=== PATIENT | male | born 1930 | race Caucasian/White ===

== ENCOUNTER 2019-03-14 08:35 | Inpatient (IN) | payer OTHER, MEDICARE ==
[2019-03-14] MEDS ORDERED: ACETAMINOPHEN 325 MG TABLET (FP) PO ONE ×2 (09:27→14:50)
[2019-03-14] MEDS ORDERED: SODIUM CHLORIDE 0.9% 1000 ML INFUS.BAG IV ONE (09:27)
[2019-03-14] MEDS ORDERED: ACETAMINOPHEN 325 MG TABLET (FP) ONE ×2 (09:46→14:54)
--- NOTE | 2019-03-14 09:55 | PDOC ---
History of Present Illness - General Chief Complaint: Urinary Problem Stated Complaint: BLOOD IN URINE/ STOOL History Source: Patient Exam Limitations: Language Barrier - History of Present Illness Initial Comments: 03/14/19 09:51 88-year-old male ho bph htn cad , aaa, hld, here today status post bladder cyst removal done by Dr. Colby on for 03/10 complaining of dysuria. Patient states that he has had hematuria since his surgical procedure. Today started getting severe dysuria. He states he is still able to urinate small amounts at a time but has severe pain when urinating. Denies fevers chills is currently taking antibiotic as prescribed by his urologist. No flank pain no lower abdominal pain not feeling dizzy or lightheaded did not call his urologist today is Friday03/14/19 11:43 Past History - Past Medical History Allergies/Adverse Reactions: Allergies Allergy/AdvReac Type Severity Reaction Status Date / Time No Known Allergies Allergy Unverified 03/14/19 08:43 Home Medications: Ambulatory Orders Cilostazol 100 mg PO BID tablet 08/03/14 Clopidogrel Bisulfate [Clopidogrel] 75 mg PO DAILY #7 tablet 08/03/14 Simvastatin 40 mg PO DAILY tablet 08/03/14 Metoprolol Tartrate 100 mg PO BID 08/01/15 Olmesartan Medoxomil [Benicar (Nf)] 20 mg PO DAILY 03/14/19 Anemia: No Asthma: No Cancer: Yes Cardiac Disorders: Yes ([place]) CVA: No COPD: No CHF: No Dementia: No Diabetes: No GI Disorders: No Disorders: No HTN: Yes Hypercholesterolemia: Yes Liver Disease: No Seizures: No Thyroid Disease: No - Surgical History Abdominal Surgery: No Appendectomy: No Cardiac Surgery: Yes (stents) Cholecystectomy: No Lung Surgery: No Neurologic Surgery: No - Suicide/Smoking/Psychosocial Hx Smoking History: Never smoked Have you smoked in the past 12 months: No If you are a former smoker, when did you quit?: 7 years ago Hx Alcohol Use: No Drug/Substance Use Hx: No Substance Use Type: None Review of Systems - Review of Systems Constitutional: No: Chills, Diaphoresis, Fever HEENTM: No: Eye Pain Respiratory: No: Cough, Orthopnea Cardiac (ROS): No: Chest Pain, Edema : Yes: Burning, Dysuria, Hematuria Musculoskeletal: No: Back Pain Integumentary: No: Bruising, Change in Color All Other Systems: Reviewed and Negative *Physical Exam - Vital Signs Last Vital Signs Temp Pulse Resp BP Pulse Ox 97.5 F L 71 18 146/86 97 03/14/19 08:41 03/14/19 08:41 03/14/19 08:41 03/14/19 08:41 03/14/19 08:41 - Physical Exam Comments: 03/14/19 09:53 Awake alert no acute distress lungs are clear bilaterally heart is regular 20 murmurs rubs or gallops abdomen is soft and nontender examination of the shows penile shaft no lesions no erythema no swelling no discharge there is scant bloody urine in his underwear testicles are nontender no CVA tenderness skin is warm and dry no rash extremities are warm and well-perfused neurologically patient is alert and oriented 3 Procedures - Bedside Ultrasound Other: renal. bladder ED Treatment Course - LABORATORY CBC & Chemistry Diagram: 03/14/19 10:15 03/14/19 10:15 Medical Decision Making - Medical Decision Making 03/14/19 09:54 88-year-old status post urological procedure here complaining of dysuria. Differential includes trauma from the surgery urethritis UTI hypertension we will send basic labs and hydrate the patient we'll send urine to look for infection will discuss with Dr. Colby postvoid ultrasound for bladder volume to rule out retention 03/14/19 13:03 pt labs noted for elevated creatinine. positive uti, insetting of procedure unclear. however pt with severe dysuria. focused ED renal / bladder us performed indication hematuria bladder volume measured to be 370 ml pre void, and 340 mL post void. noted hyperechoic material post bladder, no color flow, likley clot. bilat renal us performed . no hydronephrosis noted. superior pole right kidney with simple cyst measuring 2 x 1.7 cm right renal diameter 10 cm left renal diameter 9.48 cm inferior pole left kidney with simple cyst measuring 1.4 x 1.6 cm limpression: mild bladder retention 340 ml with debris likley clot, bilat renal siimple cyst, no hydroneprhosis. d/w dr colby, will admit pt to medicine. told to avoid kuhn catheterization. will see in hospital. ceftriaxone for uti ordered. 03/14/19 13:18 d/w dr peralta, who will admit for dr. sun. *DC/Admit/Observation/Transfer Diagnosis at time of Disposition: UTI (urinary tract infection), Hematuria - Discharge Dispostion Decision to Admit order: Yes - Referrals Referrals: Stephen Sun MD [Primary Care Provider] - - Patient Instructions - Post Discharge Activity
[2019-03-14 10:22] LABS: BASO % 0.7 % (0-2.0); EOS % 1.6 % (0-4.5); HEMOGLOBIN 11.2 GM/dL (11.7-16.9); LYMPH % 14.8 % (8-40); MCH 30.2 pg (25.7-33.7); MCHC 32.8 g/dl (32.0-35.9); MEAN CELL VOLUME 92.2 fl (80-96); MEAN PLT VOLUME 8.2 fl (7.5-11.1); MONO % 8.4 % (3.8-10.2); NEUT % 74.5 % (42.8-82.8); PLATELET COUNT 137 K/MM3 (134-434); RBC 3.69 M/mm3 (4.00-5.60); RDW 16.8 % (11.9-15.9); WHITE BLOOD COUNT 5.2 K/mm3 (4.0-10.0)
[2019-03-14 10:57] LABS: PH,URINE 8.5 (5.0-8.0); URINE BILIRUBIN 3+ (NEGATIVE); URINE COLOR Red; URINE GLUCOSE (UA) Trace (NEGATIVE); URINE KETONE 2+ (NEGATIVE); URINE LEUK ESTERASE 3+ (NEGATIVE); URINE NITRITE Positive (NEGATIVE); URINE PROTEIN 3+ (NEGATIVE); URINE UROBILINOGEN 4.0 E.U/dl mg/dL (0.2-1.0)
[2019-03-14 10:59] LABS: ALK PHOS 62 U/L (45-117); ANION GAP 6 MMOL/L (8-16); BILIRUBIN,TOTAL 0.6 mg/dL (0.2-1); BLOOD UREA NITROGEN 28 mg/dL (7-18); CHLORIDE 103 mmol/L (98-107); CO2 28 mmol/L (21-32); CREATININE 1.9 mg/dL (0.55-1.3); GLUCOSE,RANDOM 102 mg/dL (74-106); POTASSIUM 4.1 mmol/L (3.5-5.1); SGOT/AST 27 U/L (15-37); SGPT/ALT 11 U/L (13-61); SODIUM 138 mmol/L (136-145); TOT PROT 7.5 g/dl (6.4-8.2)
[2019-03-14 11:17] LABS: URINE APPEARANCE BLOODY
[2019-03-14 11:27] LABS: URINE BACTERIA FEW /hpf (NEGATIVE); URINE RBC >100 /hpf (0-4); URINE WBC 10 /hpf (0-5)
[2019-03-14] MEDS ORDERED: CEFTRIAXONE 1,000 MG in DEXTROSE 5%-WATER - 50 ML IVPB ONE (13:08)
[2019-03-14] MEDS ORDERED: CEFTRIAXONE 1 GM/50 ML BAG ONE ×2 (13:28→13:29)
[2019-03-14] MEDS ORDERED: METOPROLOL TARTRATE 50 MG TABLET (FP) PO ONE (14:51)
[2019-03-14] MEDS ORDERED: LOSARTAN 50MG/HCTZ 12.5MG 1 TAB (FP) PO ONE (14:52)
[2019-03-14] MEDS ORDERED: METOPROLOL TARTRATE 50 MG TABLET (FP) ONE (14:54)
[2019-03-14] MEDS: SODIUM CHLORIDE 0.45% 1,000 ML IV SCH (19:01)
[2019-03-14] MEDS ORDERED: PT OWN MED DRAWER 7, Y5N ONE (21:10)
[2019-03-14] MEDS: METOPROLOL TARTRATE 50 MG TABLET (FP) PO SCH (21:44)
[2019-03-14] MEDS: ATORVASTATIN CA 20 MG TABLET (FP) PO SCH (21:45)
[2019-03-14] MEDS ORDERED: PATIENT'S OWN MEDICATION (NON-FORMULARY) (Metoprolol Tartrate [Metoprolol Tartrate] 100 MG PO SCH (22:00)
[2019-03-14] MEDS: CILOSTAZOL 100 MG TABLET PO SCH (23:25)
[2019-03-15 03:47] VITALS: BMI 24.0
[2019-03-15 08:56] LABS: ANION GAP 9 MMOL/L (8-16); BLOOD UREA NITROGEN 23 mg/dL (7-18); CALCIUM 8.8 mg/dL (8.5-10.1); CHLORIDE 100 mmol/L (98-107); CO2 25 mmol/L (21-32); CREATININE 1.3 mg/dL (0.55-1.3); GLUCOSE,RANDOM 85 mg/dL (74-106); POTASSIUM 3.8 mmol/L (3.5-5.1); SODIUM 133 mmol/L (136-145)
[2019-03-15] MEDS ORDERED: cefTRIAXone SODIUM 1 GM VIAL ONE (09:29)
[2019-03-15] MEDS ORDERED: DEXTROSE 5%-WATER - 50 ML IVPB ONE (09:29)
[2019-03-15] MEDS: LOSARTAN POTASSIUM 50 MG TABLET (FP) PO SCH (09:45)
[2019-03-15] MEDS: METOPROLOL TARTRATE 50 MG TABLET (FP) PO SCH ×2 (09:45→21:41)
[2019-03-15] MEDS: HYDROCHLOROTHIAZIDE 25 MG TABLET (FP) PO SCH (09:46)
[2019-03-15] MEDS: CEFTRIAXONE 1 GM in DEXTROSE 5%-WATER - 50 ML IVPB SCH (09:46)
[2019-03-15] MEDS: CILOSTAZOL 100 MG TABLET PO SCH ×2 (09:47→21:42)
[2019-03-15] MEDS ORDERED: PATIENT'S OWN MEDICATION (NON-FORMULARY) (Simvastatin [Simvastatin] 40 MG) PO SCH (10:00)
[2019-03-15] MEDS ORDERED: PATIENT'S OWN MEDICATION (NON-FORMULARY) (Losartan/Hydrochlorothiazide [Losartan-Hctz 100- PO SCH (10:00)
[2019-03-15] MEDS: SODIUM CHLORIDE 0.45% 1,000 ML IV SCH (10:20)
--- NOTE | 2019-03-15 10:43 | HP ---
Admitting History and Physical - Primary Care Physician PCP: Stephen Willis - Admission History of Present Illness: Pt seen/ examined chart reviewed In summary 88-year-old male with pmhx-- bph htn cad , aaa, hld, status post bladder cyst removal done by Dr. Medina on for 03/10 complaining of dysuria. Patient states that he has had hematuria since his surgical procedure. Pt given abx started on fluids admitted to floor u/s done in er -- Findings noted focused ED renal / bladder us performed indication hematuria bladder volume measured to be 370 ml pre void, and 340 mL post void. noted hyperechoic material post bladder, no color flow, likley clot. bilat renal us performed . no hydronephrosis noted. superior pole right kidney with simple cyst measuring 2 x 1.7 cm right renal diameter 10 cm left renal diameter 9.48 cm inferior pole left kidney with simple cyst measuring 1.4 x 1.6 cm lmpression: mild bladder retention 340 ml with debris likley clot, bilat renal siimple cyst, no hydroneprhosis. Pt seen/ examined feels better today History Source: Patient Limitations to Obtaining History: No Limitations - Past Medical History Cardiovascular: Yes: CAD (s/p stents x2 - 7 years ago), HTN, Hyperlipdemia, [place], Other (LV dysfunction, carotid stenosis) Renal/: Yes: Renal Inusuff Musculoskeletal: Yes: Other (Lumbosacral disc disease) - Past Surgical History Past Surgical History: Yes: Stent - Smoking History Smoking history: Never smoked Have you smoked in the past 12 months: No If you are a former smoker, when did you quit?: 7 years ago - Alcohol/Substance Use Hx Alcohol Use: No - Social History ADL: Independent History of Recent Travel: No Home Medications - Allergies Allergies/Adverse Reactions: Allergies Allergy/AdvReac Type Severity Reaction Status Date / Time No Known Allergies Allergy Unverified 03/14/19 08:43 - Home Medications Home Medications: Ambulatory Orders Cilostazol 100 mg PO BID tablet 08/03/14 Clopidogrel Bisulfate [Clopidogrel] 75 mg PO DAILY #7 tablet 08/03/14 Simvastatin 40 mg PO DAILY tablet 08/03/14 Metoprolol Tartrate 100 mg PO BID 08/01/15 Losartan/Hydrochlorothiazide [Losartan-Hctz 100-25 mg Tab] 1 each PO DAILY 03/14 Review of Systems - Review of Systems Constitutional: reports: Weakness Eyes: reports: No Symptoms HENT: reports: No Symptoms Neck: reports: No Symptoms Cardiovascular: reports: No Symptoms Respiratory: reports: No Symptoms Gastrointestinal: reports: No Symptoms Genitourinary: reports: Dysuria Neurological: reports: No Symptoms Psychiatric: reports: No Symptoms Physical Examination Vital Signs: Vital Signs Temperature 98.1 F 03/15/19 06:00 Pulse Rate 74 03/15/19 06:00 Respiratory Rate 18 03/14/19 22:00 Blood Pressure 158/89 03/15/19 06:00 O2 Sat by Pulse Oximetry (%) 98 03/14/19 22:00 Constitutional: Yes: No Distress, Calm Eyes: Yes: Conjunctiva Clear HENT: Yes: WNL Neck: Yes: Supple Cardiovascular: Yes: Regular Rate and Rhythm Respiratory: Yes: CTA Bilaterally Gastrointestinal: Yes: Soft Edema: No Neurological: Yes: Alert Psychiatric: Yes: Alert Labs: CBC, BMP 03/14/19 10:15 03/15/19 07:38 Problem List - Problems (1) Hematuria Code(s): R31.9 - HEMATURIA, UNSPECIFIED (2) CAD (coronary artery disease) Code(s): I25.10 - ATHSCL HEART DISEASE OF [place] CORONARY ARTERY W/O ANG PCTRS Assessment/Plan Clinically better Continue present care abx fluids meds reviewed f/u lytes urology to follow will follow Ambulate avoid Catherization
--- NOTE | 2019-03-15 11:00 | EKG ---
Test Reason : Blood Pressure : / mmHG Vent. Rate : 058 BPM Atrial Rate : 058 BPM P-R Int : 166 ms QRS Dur : 106 ms QT Int : 454 ms P-R-T Axes : -02 -33 068 degrees QTc Int : 445 ms SINUS BRADYCARDIA LEFT AXIS DEVIATION INFERIOR INFARCT (CITED ON OR BEFORE 01-AUG-2015) ABNORMAL ECG WHEN COMPARED WITH ECG OF 01-AUG-2015 13:34, T WAVE VARIATION Confirmed by DONALD MAS, HERB ([id number]) on 03/15/2019 10:59:46 AM Referred By: Confirmed By:HERB BENNETT MD
[2019-03-15] MEDS ORDERED: PT OWN MED DRAWER 7, Y5N ONE (21:18)
[2019-03-15] MEDS: ATORVASTATIN CA 20 MG TABLET (FP) PO SCH (21:41)
[2019-03-16 07:29] LABS: BASO % 0.4 % (0-2.0); EOS % 1.3 % (0-4.5); HEMATOCRIT 32.4 % (35.4-49); LYMPH % 16.6 % (8-40); MCH 30.3 pg (25.7-33.7); MCHC 34.1 g/dl (32.0-35.9); MEAN CELL VOLUME 88.9 fl (80-96); MEAN PLT VOLUME 8.5 fl (7.5-11.1); MONO % 6.6 % (3.8-10.2); NEUT % 75.1 % (42.8-82.8); PLATELET COUNT 147 K/MM3 (134-434); RBC 3.64 M/mm3 (4.00-5.60); RDW 16.6 % (11.9-15.9); WHITE BLOOD COUNT 6.9 K/mm3 (4.0-10.0)
[2019-03-16 07:34] LABS: ALBUMIN 2.6 g/dl (3.4-5.0); ALK PHOS 62 U/L (45-117); ANION GAP 7 MMOL/L (8-16); BILIRUBIN,TOTAL 0.7 mg/dL (0.2-1); BLOOD UREA NITROGEN 25 mg/dL (7-18); CHLORIDE 97 mmol/L (98-107); CO2 27 mmol/L (21-32); CREATININE 1.4 mg/dL (0.55-1.3); GLUCOSE,RANDOM 111 mg/dL (74-106); POTASSIUM 3.6 mmol/L (3.5-5.1); SGOT/AST 37 U/L (15-37); SGPT/ALT 12 U/L (13-61); SODIUM 131 mmol/L (136-145); TOT PROT 6.8 g/dl (6.4-8.2)
[2019-03-16] MEDS ORDERED: DEXTROSE 5%-WATER - 50 ML IVPB ONE (10:28)
[2019-03-16] MEDS ORDERED: PT OWN MED DRAWER 7, Y5N ONE ×2 (10:28→21:10)
[2019-03-16] MEDS ORDERED: cefTRIAXone SODIUM 1 GM VIAL ONE (10:28)
[2019-03-16] MEDS: LOSARTAN POTASSIUM 50 MG TABLET (FP) PO SCH (10:43)
[2019-03-16] MEDS: HYDROCHLOROTHIAZIDE 25 MG TABLET (FP) PO SCH (10:43)
[2019-03-16] MEDS: METOPROLOL TARTRATE 50 MG TABLET (FP) PO SCH ×2 (10:43→21:41)
[2019-03-16] MEDS: CILOSTAZOL 100 MG TABLET PO SCH ×2 (10:44→21:41)
[2019-03-16] MEDS: CEFTRIAXONE 1 GM in DEXTROSE 5%-WATER - 50 ML IVPB SCH (10:44)
[2019-03-16] MEDS: SODIUM CHLORIDE 0.45% 1,000 ML IV SCH ×2 (13:03→21:46)
--- NOTE | 2019-03-16 13:56 | PN ---
Progress Note (short form) - Note Progress Note: he is urinating about 100cc each time-- hematuria has pain on urination friend at bedside Vital Signs - 24 hr 03/15/19 03/15/19 03/15/19 20:12 21:00 22:00 Temperature 98.1 F 98.4 F Pulse Rate 69 68 Respiratory 19 20 18 Rate Blood Pressure 164/77 162/76 O2 Sat by Pulse 98 Oximetry (%) 03/16/19 03/16/19 06:33 10:40 Temperature 98.5 F 98.4 F Pulse Rate 53 L 74 Respiratory 20 20 Rate Blood Pressure 153/77 144/92 O2 Sat by Pulse Oximetry (%) Current Medications Generic Name Dose Route Start Last Admin Trade Name Freq PRN Reason Stop Dose Admin Atorvastatin Calcium 20 mg 03/14/19 22:00 03/15/19 21:41 Lipitor - PO 20 mg HS RENARD Administration Cilostazol 100 mg 03/14/19 22:00 03/16/19 10:44 Pletal - PO 100 mg BID RENARD Administration Hydrochlorothiazide 25 mg 03/15/19 10:00 03/16/19 10:43 Hctz - PO 25 mg DAILY RENARD Administration Ceftriaxone Sodium 1 gm/ 50 mls @ 100 mls/hr 03/15/19 10:00 03/16/19 10:44 Dextrose IVPB 100 mls/hr DAILY RENARD Administration Sodium Chloride 1,000 mls @ 100 mls/hr 03/14/19 18:00 03/16/19 13:03 1/2 Normal Saline IV 100 mls/hr ASDIR RENARD Administration Losartan Potassium 100 mg 03/15/19 10:00 03/16/19 10:43 Cozaar - PO 100 mg DAILY RENARD Administration Metoprolol Tartrate 100 mg 03/14/19 22:00 03/16/19 10:43 Lopressor - PO 100 mg BID RENARD Administration Laboratory Results - last 24 hr 03/16/19 03/16/19 06:00 06:00 WBC 6.9 RBC 3.64 L Hgb 11.0 L Hct 32.4 L MCV 88.9 MCH 30.3 MCHC 34.1 RDW 16.6 H Plt Count 147 MPV 8.5 Absolute Neuts (auto) 5.2 Neutrophils % 75.1 Lymphocytes % 16.6 Monocytes % 6.6 Eosinophils % 1.3 Basophils % 0.4 Nucleated RBC % 0 Sodium 131 L Potassium 3.6 Chloride 97 L Carbon Dioxide 27 Anion Gap 7 L BUN 25 H Creatinine 1.4 H Creat Clearance w eGFR 47.83 Random Glucose 111 H Calcium 8.0 L Total Bilirubin 0.7 AST 37 ALT 12 L Alkaline Phosphatase 62 Total Protein 6.8 Albumin 2.6 L Constitutional: Yes: No Distress, Calm Eyes: Yes: Conjunctiva Clear HENT: Yes: WNL Neck: Yes: Supple Cardiovascular: Yes: Regular Rate and Rhythm Respiratory: Yes: CTA Bilaterally Gastrointestinal: Yes: Soft Edema: No Neurological: Yes: Alert Psychiatric: Yes: Alert Problem List - Problems (1) Hematuria Code(s): R31.9 - HEMATURIA, UNSPECIFIED (2) CAD (coronary artery disease) Code(s): I25.10 - ATHSCL HEART DISEASE OF [place] CORONARY ARTERY W/O ANG PCTRS Assessment/Plan Continue present care abx fluids meds reviewed urology to follow will follow Ambulate avoid Catherization Problem List - Problems (1) Hematuria Code(s): R31.9 - HEMATURIA, UNSPECIFIED (2) UTI (urinary tract infection) Code(s): N39.0 - URINARY TRACT INFECTION, SITE NOT SPECIFIED (3) CAD (coronary artery disease) Code(s): I25.10 - ATHSCL HEART DISEASE OF [place] CORONARY ARTERY W/O ANG PCTRS
[2019-03-16] MEDS: ATORVASTATIN CA 20 MG TABLET (FP) PO SCH (21:41)
[2019-03-17 07:15] LABS: HEMATOCRIT 31.9 % (35.4-49); HEMOGLOBIN 10.5 GM/dL (11.7-16.9); MCH 29.5 pg (25.7-33.7); MEAN CELL VOLUME 89.1 fl (80-96); MEAN PLT VOLUME 8.3 fl (7.5-11.1); PLATELET COUNT 137 K/MM3 (134-434); RBC 3.58 M/mm3 (4.00-5.60); RDW 16.3 % (11.9-15.9); WHITE BLOOD COUNT 5.9 K/mm3 (4.0-10.0)
[2019-03-17] MEDS ORDERED: cefTRIAXone SODIUM 1 GM VIAL ONE (09:09)
[2019-03-17] MEDS ORDERED: DEXTROSE 5%-WATER - 50 ML IVPB ONE (09:09)
[2019-03-17] MEDS: CEFTRIAXONE 1 GM in DEXTROSE 5%-WATER - 50 ML IVPB SCH (09:29)
[2019-03-17] MEDS: LOSARTAN POTASSIUM 50 MG TABLET (FP) PO SCH (09:30)
[2019-03-17] MEDS: SODIUM CHLORIDE 0.45% 1,000 ML IV SCH (09:31)
[2019-03-17] MEDS: CILOSTAZOL 100 MG TABLET PO SCH ×2 (09:32→22:10)
[2019-03-17] MEDS: METOPROLOL TARTRATE 50 MG TABLET (FP) PO SCH ×2 (09:33→22:07)
[2019-03-17] MEDS: HYDROCHLOROTHIAZIDE 25 MG TABLET (FP) PO SCH (09:34)
[2019-03-17] MEDS ORDERED: SODIUM CHLORIDE 0.45% 1,000 ML IV SCH (12:43)
--- NOTE | 2019-03-17 12:43 | PN ---
Progress Note (short form) - Note Progress Note: he is urinating about 100cc each time-- hematuria-- frequent urination no further pain on urination no abd pain Vital Signs - 24 hr 03/16/19 03/16/19 03/17/19 18:00 22:00 06:40 Temperature 98.7 F 97.5 F L Pulse Rate 70 60 Respiratory 20 18 Rate Blood Pressure 166/76 150/76 O2 Sat by Pulse 98 Oximetry (%) Current Medications Generic Name Dose Route Start Last Admin Trade Name Nitza PRN Reason Stop Dose Admin Atorvastatin Calcium 20 mg 03/14/19 22:00 03/16/19 21:41 Lipitor - PO 20 mg HS RENARD Administration Cilostazol 100 mg 03/14/19 22:00 03/17/19 09:32 Pletal - PO 100 mg BID RENARD Administration Hydrochlorothiazide 25 mg 03/15/19 10:00 03/17/19 09:34 Hctz - PO 25 mg DAILY RENARD Administration Ceftriaxone Sodium 1 gm/ 50 mls @ 100 mls/hr 03/15/19 10:00 03/17/19 09:29 Dextrose IVPB 100 mls/hr DAILY RENARD Administration Sodium Chloride 1,000 mls @ 100 mls/hr 03/14/19 18:00 03/17/19 09:31 1/2 Normal Saline IV 100 mls/hr ASDIR RENARD Administration Losartan Potassium 100 mg 03/15/19 10:00 03/17/19 09:30 Cozaar - PO 100 mg DAILY RENARD Administration Metoprolol Tartrate 100 mg 03/14/19 22:00 03/17/19 09:33 Lopressor - PO 100 mg BID RENARD Administration Laboratory Results - last 24 hr 03/17/19 06:20 WBC 5.9 RBC 3.58 L Hgb 10.5 L Hct 31.9 L MCV 89.1 MCH 29.5 MCHC 33.0 RDW 16.3 H Plt Count 137 MPV 8.3 Constitutional: Yes: No Distress, Calm Eyes: Yes: Conjunctiva Clear HENT: Yes: WNL Neck: Yes: Supple Cardiovascular: Yes: Regular Rate and Rhythm Respiratory: Yes: CTA Bilaterally Gastrointestinal: Yes: Soft Edema: No Neurological: Yes: Alert Psychiatric: Yes: Alert Problem List - Problems (1) Hematuria Code(s): R31.9 - HEMATURIA, UNSPECIFIED (2) CAD (coronary artery disease) Code(s): I25.10 - ATHSCL HEART DISEASE OF [place] CORONARY ARTERY W/O ANG PCTRS Assessment/Plan Continue present care abx iv fluids meds reviewed urology follow up will follow Ambulate avoid Catherization' Hb stable Problem List - Problems (1) Hematuria Code(s): R31.9 - HEMATURIA, UNSPECIFIED (2) UTI (urinary tract infection) Code(s): N39.0 - URINARY TRACT INFECTION, SITE NOT SPECIFIED (3) CAD (coronary artery disease) Code(s): I25.10 - ATHSCL HEART DISEASE OF [place] CORONARY ARTERY W/O ANG PCTRS
--- NOTE | 2019-03-17 14:43 | CON.GU ---
Consult Consult Specialty:: Urology Reason for Consultation:: Hematuria - History of Present Illness Chief Complaint: Hematuria History of Present Illness: 88 yo male s/p prior TURBT and re resection now w gross hematuria pt found to have UTI - History Source History Provided By: Patient, Medical Record - Past Medical History Cardio/Vascular: Yes: CAD (s/p stents x2 - 7 years ago), HTN, Hyperlipdemia, [place] , Other (LV dysfunction, carotid stenosis) Renal/: Yes: Renal Inusuff Musculoskeletal: Yes: Other (Lumbosacral disc disease) Additional Medical History: PAD, carotid stenosis - Past Surgical History Past Surgical History: Yes: Stent - Alcohol/Substance Use Hx Alcohol Use: No - Smoking History Smoking history: Never smoked Have you smoked in the past 12 months: No If you are a former smoker, when did you quit?: 7 years ago - Social History ADL: Independent History of Recent Travel: No Home Medications - Allergies Allergies/Adverse Reactions: Allergies Allergy/AdvReac Type Severity Reaction Status Date / Time No Known Allergies Allergy Unverified 03/14/19 08:43 - Home Medications Home Medications: Ambulatory Orders Cilostazol 100 mg PO BID tablet 08/03/14 Clopidogrel Bisulfate [Clopidogrel] 75 mg PO DAILY #7 tablet 08/03/14 Simvastatin 40 mg PO DAILY tablet 08/03/14 Metoprolol Tartrate 100 mg PO BID 08/01/15 Losartan/Hydrochlorothiazide [Losartan-Hctz 100-25 mg Tab] 1 each PO DAILY 03/14 Physical Exam- Vital Signs: Vital Signs Temperature 97.5 F L 03/17/19 06:40 Pulse Rate 60 03/17/19 06:40 Respiratory Rate 18 03/17/19 06:40 Blood Pressure 150/76 03/17/19 06:40 O2 Sat by Pulse Oximetry (%) 98 03/16/19 22:00 Labs: CBC, BMP 03/17/19 06:20 03/16/19 06:00 Problem List - Problems (1) Hematuria Assessment/Plan: 88 yo male w prior TURBT w improving hematuria now voiding spontaneously cont IV abx Follow voiding trial path neg for cancer on reresection Code(s): R31.9 - HEMATURIA, UNSPECIFIED
[2019-03-17] MEDS: ATORVASTATIN CA 20 MG TABLET (FP) PO SCH (22:07)
[2019-03-18 05:31] VITALS: BP 158/69; PULSE 61; TEMP 98.5
[2019-03-18 07:51] LABS: HEMATOCRIT 30.6 % (35.4-49); HEMOGLOBIN 10.2 GM/dL (11.7-16.9); MCH 29.5 pg (25.7-33.7); MCHC 33.5 g/dl (32.0-35.9); MEAN CELL VOLUME 88.2 fl (80-96); MEAN PLT VOLUME 8.8 fl (7.5-11.1); PLATELET COUNT 130 K/MM3 (134-434); RBC 3.47 M/mm3 (4.00-5.60); RDW 16.2 % (11.9-15.9); WHITE BLOOD COUNT 6.7 K/mm3 (4.0-10.0)
[2019-03-18] MEDS ORDERED: PT OWN MED DRAWER 7, Y5N ONE (09:08)
[2019-03-18] MEDS ORDERED: DEXTROSE 5%-WATER - 50 ML IVPB ONE (09:08)
[2019-03-18] MEDS ORDERED: cefTRIAXone SODIUM 1 GM VIAL ONE (09:08)
[2019-03-18] MEDS: METOPROLOL TARTRATE 50 MG TABLET (FP) PO SCH (10:33)
[2019-03-18] MEDS: CILOSTAZOL 100 MG TABLET PO SCH (10:33)
[2019-03-18] MEDS: CEFTRIAXONE 1 GM in DEXTROSE 5%-WATER - 50 ML IVPB SCH (10:33)
[2019-03-18] MEDS: LOSARTAN POTASSIUM 50 MG TABLET (FP) PO SCH (10:33)
[2019-03-18] MEDS: HYDROCHLOROTHIAZIDE 25 MG TABLET (FP) PO SCH (10:33)
--- NOTE | 2019-03-18 12:29 | DS ---
Physical Examination Vital Signs: Vital Signs Temperature 98.5 F 03/18/19 05:30 Pulse Rate 61 03/18/19 05:30 Respiratory Rate 20 03/18/19 05:30 Blood Pressure 158/69 03/18/19 05:30 O2 Sat by Pulse Oximetry (%) 95 03/17/19 21:00 Constitutional: Yes: No Distress, Calm Cardiovascular: Yes: Regular Rate and Rhythm Respiratory: Yes: CTA Bilaterally Gastrointestinal: Yes: Normal Bowel Sounds, Soft. No: Tenderness Edema: No Labs: CBC, BMP 03/18/19 05:15 03/16/19 06:00 Discharge Summary Reason For Visit: URINARY TRACT INFECTION Current Active Problems Hematuria (Acute) UTI (urinary tract infection) (Acute) Hospital Course: HISTORY - Admission History of Present Illness: Pt seen/ examined chart reviewed In summary 88-year-old male with pmhx-- bph htn cad , aaa, hld, status post bladder cyst removal done by Dr. Medina on for 03/10 complaining of dysuria. Patient states that he has had hematuria since his surgical procedure. Pt given abx started on fluids admitted to floor u/s done in er -- Findings noted focused ED renal / bladder us performed indication hematuria bladder volume measured to be 370 ml pre void, and 340 mL post void. noted hyperechoic material post bladder, no color flow, likley clot. bilat renal us performed . no hydronephrosis noted. superior pole right kidney with simple cyst measuring 2 x 1.7 cm right renal diameter 10 cm left renal diameter 9.48 cm inferior pole left kidney with simple cyst measuring 1.4 x 1.6 cm lmpression: mild bladder retention 340 ml with debris likley clot, bilat renal siimple cyst, no hydroneprhosis. Pt seen/ examined feels better today Has been voiding frequently, hematuria is clearing up No abd pain no fever urine culture is negative but will treat empirically as he had underwent procedure Urology eval done yesterday stable for dc to home Condition: Improved - Instructions Referrals: Christofer Medina MD., MD [Staff Physician] - Disposition: HOME - Home Medications Comprehensive Discharge Medication List: Ambulatory Orders Cilostazol 100 mg PO BID tablet 08/03/14 Clopidogrel Bisulfate [Clopidogrel] 75 mg PO DAILY #7 tablet 08/03/14 Simvastatin 40 mg PO DAILY tablet 08/03/14 Metoprolol Tartrate 100 mg PO BID 08/01/15 Losartan/Hydrochlorothiazide [Losartan-Hctz 100-25 mg Tab] 1 each PO DAILY 03/14
== END 2019-03-18 14:55 | disposition home or self-care (01) | DRG 920 ==
LOC: JER 08:35 → JERBED 13:08 → J6S 18:53
PROVIDERS: ADMIT Internal Medicine; ATTEND Internal Medicine
DX: N99.820 Postprocedural hemorrhage of a genitourinary system organ or structure following a genitourinary system procedure (principal); N39.0 Urinary tract infection, site not specified; Y83.8 Other surgical procedures as the cause of abnormal reaction of the patient, or of later complication, without mention of misadventure at the time of the procedure; I10 Essential (primary) hypertension; N28.1 Cyst of kidney, acquired; E78.5 Hyperlipidemia, unspecified; I25.10 Atherosclerotic heart disease of native coronary artery without angina pectoris; I25.2 Old myocardial infarction; Z95.5 Presence of coronary angioplasty implant and graft; Z87.891 Personal history of nicotine dependence
CPT/HCPCS: 36415; 80048; 80053; 81003; 85025; 85027; 87086; 93005; 93010; 99283-25; J7030

== ENCOUNTER 2019-05-24 13:59 | Inpatient (IN) | payer OTHER, MEDICARE ==
[2019-05-24] MEDS ORDERED: BACITRACIN 15 GM TUBE TOPICAL OINTMENT TP ONE (15:19)
[2019-05-24 15:23] LABS: BASO % 0.7 % (0-2.0); HEMATOCRIT 29.5 % (35.4-49); HEMOGLOBIN 9.4 GM/dL (11.7-16.9); LYMPH % 7.8 % (8-40); MCH 27.8 pg (25.7-33.7); MCHC 31.8 g/dl (32.0-35.9); MEAN CELL VOLUME 87.4 fl (80-96); MEAN PLT VOLUME 8.7 fl (7.5-11.1); MONO % 6.4 % (3.8-10.2); NEUT % 85.1 % (42.8-82.8); PLATELET COUNT 191 K/MM3 (134-434); RBC 3.38 M/mm3 (4.00-5.60); RDW 17.3 % (11.9-15.9); WHITE BLOOD COUNT 11.5 K/mm3 (4.0-10.0)
--- NOTE | 2019-05-24 15:27 | PDOC ---
History of Present Illness - General Chief Complaint: Injury Stated Complaint: Injury Time Seen by Provider: 05/24/19 14:53 History Source: Patient Exam Limitations: No Limitations - History of Present Illness Initial Comments: 05/24/19 15:26 88yo M with PMH of CAD, AAA, BPH, Bladder Cysts BIBA s/p syncopal episode. Past History - Past Medical History Allergies/Adverse Reactions: Allergies Allergy/AdvReac Type Severity Reaction Status Date / Time No Known Allergies Allergy Verified 05/24/19 14:18 Home Medications: Ambulatory Orders Cilostazol 100 mg PO BID tablet 08/03/14 Simvastatin 40 mg PO DAILY tablet 08/03/14 Metoprolol Tartrate 100 mg PO BID 08/01/15 Losartan/Hydrochlorothiazide [Losartan-Hctz 100-25 mg Tab] 1 each PO DAILY 03/14 Aspirin [ASA -] 81 mg PO DAILY 05/24/19 Anemia: No Asthma: No Cancer: Yes Cardiac Disorders: Yes ([place]) CVA: No COPD: No CHF: No Dementia: No Diabetes: No GI Disorders: No Disorders: No HTN: Yes Hypercholesterolemia: Yes Liver Disease: No Seizures: No Thyroid Disease: No - Surgical History Abdominal Surgery: No Appendectomy: No Cardiac Surgery: Yes (stents) Cholecystectomy: No Lung Surgery: No Neurologic Surgery: No - Suicide/Smoking/Psychosocial Hx Smoking History: Former smoker Have you smoked in the past 12 months: No If you are a former smoker, when did you quit?: 2000 Information on smoking cessation initiated: No Hx Alcohol Use: No Drug/Substance Use Hx: No Substance Use Type: None *Physical Exam - Vital Signs Last Vital Signs Temp Pulse Resp BP Pulse Ox 97.6 F 60 16 118/60 99 05/24/19 14:05 05/24/19 14:05 05/24/19 14:05 05/24/19 14:05 05/24/19 14:05 ED Treatment Course - LABORATORY CBC & Chemistry Diagram: 05/24/19 15:09 05/24/19 15:09 - RADIOLOGY Radiology Studies Ordered: Category Date Time Status HEAD CT WITHOUT CONTRAST [CT] Stat CT Scan 05/24/19 15:06 Ordered CHEST X-RAY PORTABLE* [RAD] Stat Radiology 05/24/19 15:07 Taken *DC/Admit/Observation/Transfer - Referrals Referrals: Stephen Willis MD [Primary Care Provider] - - Patient Instructions - Post Discharge Activity
[2019-05-24 15:29] LABS: INR 1.04 (0.83-1.09); PROTHROMBIN TIME (PATIENT) 12.3 SEC (9.7-13.0)
[2019-05-24] MEDS ORDERED: BACITRACIN 0.9 GM PACKET ONE (15:49)
[2019-05-24 15:52] LABS: BILIRUBIN,TOTAL 0.6 mg/dL (0.2-1); BLOOD UREA NITROGEN 35.6 mg/dL (7-18); CALCIUM 8.7 mg/dL (8.5-10.1); CREATININE 2.4 mg/dL (0.55-1.3); MAGNESIUM 2.6 mg/dL (1.8-2.4); POTASSIUM 4.4 mmol/L (3.5-5.1); TOT PROT 7.4 g/dl (6.4-8.2)
[2019-05-24 16:58] LABS: EPI CELLS 5.3 /HPF (0-5/HPF); HYALINE CASTS 14 /lpf (0-8); URINE APPEARANCE CLEAR; URINE BACTERIA 2.4 /hpf (NEGATIVE); URINE BILIRUBIN NEGATIVE (NEGATIVE); URINE COLOR YELLOW; URINE GLUCOSE (UA) NEGATIVE (NEGATIVE); URINE KETONE NEGATIVE (NEGATIVE); URINE LEUK ESTERASE TRACE (NEGATIVE); URINE NITRITE NEGATIVE (NEGATIVE); URINE PROTEIN 2+ (NEGATIVE); URINE RBC 39 /hpf (0-4); URINE UROBILINOGEN 0.2 mg/dL (0.2-1.0); URINE WBC 18 /hpf (0-5)
[2019-05-24] MEDS ORDERED: SODIUM CHLORIDE 1,000 ML IV STA (17:43)
--- NOTE | 2019-05-24 18:31 | PDOC ---
Documentation entered by Serena Garcia SCRIBE, acting as scribe for Cira Scherer MD. Cira Scherer MD: This documentation has been prepared by the Jose antunez Brenda, SCRIBE, under my direction and personally reviewed by me in its entirety. I confirm that the documentation accurately reflects all work, treatment, procedures, and medical decision making performed by me. Attending Attestation - Resident Resident Name: NeemaLisa - ED Attending Attestation I have performed the following: I have examined & evaluated the patient, The case was reviewed & discussed with the resident, I agree w/resident's findings & plan, Exceptions are as noted - HPI HPI: 05/24/19 18:48 The patient is an 88 year old male, with a significant PMH of CAD, AAA, BPH and Bladder Cysts who presents to the emergency department BIBA with s/p a syncopal episode. The patient reports feeling a sharp pain on left side, at which time he experienced syncope for approximately 1 minute. The patient also notes abrasions on arms and continuous pain on left side. The patient denies chest pain, shortness of breath and headache. Denies fever, chills, nausea, vomiting, diarrhea and constipation. Denies any recent travel. Denies any neurological symptoms. Allergies: NKA Past surgical history: Cardiac surgery: Stents Social history: Past tobacco use, quit 7 years ago. PCP: Dr. Myrtle Willis - Physicial Exam PE: 05/24/19 18:48 GENERAL/CONSTITUTIONAL: No fever or chills. No weakness. HEAD, EYES, EARS, NOSE AND THROAT: No change in vision. No ear pain or discharge. No sore throat. CARDIOVASCULAR: No chest pain or shortness of breath. RESPIRATORY: No cough, wheezing, or hemoptysis. GASTROINTESTINAL: No nausea, vomiting, diarrhea or constipation. GENITOURINARY: No dysuria, frequency, or change in urination. MUSCULOSKELETAL: No joint or muscle swelling or pain. No neck or back pain. SKIN: No rash NEUROLOGIC: No headache, vertigo, loss of consciousness, or change in strength/ sensation. ENDOCRINE: No increased thirst. No abnormal weight change. HEMATOLOGIC/LYMPHATIC: No anemia, easy bleeding, or history of blood clots. ALLERGIC/IMMUNOLOGIC: No hives or skin allergy. - Medical Decision Making 05/24/19 18:25 Pt presents to the ED complaining of syncope and L sided flank pain that has now resolved. Labs show acute renal failure. Will check renal scan to rule out obstruction and admit to medicine for acute renal failure and syncope.
[2019-05-24] MEDS ORDERED: SODIUM CHLORIDE 1,000 ML IV SCH (19:45)
--- NOTE | 2019-05-24 21:09 | HP ---
CHIEF COMPLAINT: passed out and reported had right sided lower abdominal pain PCP:Dr. Willis Cytogenetic Technician: Dr. Kimble HISTORY OF PRESENT ILLNESS: This is an 88 year old male with history of [place], coronary artery disease with 2 stents placed 11 years ago, abdominal aortic aneurym repaired 3 years ago and BPH who presents with a syncopal episode . He reports he was at home,shaved and was walking around in his home and started to feel right sided lower abdominal pain prior to this event and then was found passed out on the floor by his . He denied chest pain, shortness of breath, dizziness or palpitations. He reports not drinking an adequate amount of water. He denied fever, chills, nausea, vomitting or diarrhea. Upon evaluation in the ER he was found to have a creatinine of 2.4(baseline 1.1- 1.9),WBC 11.5, magnesium 2.6, hgb 9.[address] scan of head showed no acute intracranial findings. CT scan of abdomen and pelvis demonstrated a large pernephritic hematoma. Renal US showed no evidence of hydronephrosis and bilateral renal cysts. He is being admitted for further cardiac, neurological and renal workup. Recent Travel:denies PAST MEDICAL HISTORY: coronary artery disease with stents BPH PAST SURGICAL HISTORY: abdominal aortic aneurysm repair Social History: Smoking:denies Alcohol:denies Drugs: denies Family History: noncontributory Allergies No Known Allergies Allergy (Verified 05/24/19 14:18) HOME MEDICATIONS: Home Medications Medication Instructions Recorded Cilostazol 100 mg PO BID tablet 08/03/14 Simvastatin 40 mg PO DAILY tablet 08/03/14 Metoprolol Tartrate 100 mg PO BID 08/01/15 Losartan/Hydrochlorothiazide 1 each PO DAILY 03/14/19 [Losartan-Hctz 100-25 mg Tab] Aspirin [ASA -] 81 mg PO DAILY 05/24/19 REVIEW OF SYSTEMS CONSTITUTIONAL: Absent: fever, chills, diaphoresis, generalized weakness, malaise, loss of appetite, weight change HEENT: Absent: rhinorrhea, nasal congestion, throat pain, throat swelling, difficulty swallowing, mouth swelling, ear pain, eye pain, visual changes CARDIOVASCULAR: Absent: chest pain, syncope, palpitations, irregular heart rate, lightheadedness , peripheral edema RESPIRATORY: Absent: cough, shortness of breath, dyspnea with exertion, orthopnea, wheezing, stridor, hemoptysis GASTROINTESTINAL: Absent: right sided lower abdominal pain, abdominal distension, nausea, vomiting , diarrhea, constipation, melena, hematochezia GENITOURINARY: Absent: dysuria, frequency, urgency, hesitancy, hematuria, flank pain, genital pain MUSCULOSKELETAL: Absent: myalgia, arthralgia, joint swelling, back pain, neck pain SKIN: Absent: rash, itching, pallor HEMATOLOGIC/IMMUNOLOGIC: Absent: easy bleeding, easy bruising, lymphadenopathy, frequent infections ENDOCRINE: Absent: unexplained weight gain, unexplained weight loss, heat intolerance, cold intolerance NEUROLOGIC: Absent: headache, focal weakness or paresthesias, dizziness, unsteady gait, seizure, mental status changes, bladder or bowel incontinence PSYCHIATRIC: Absent: anxiety, depression, suicidal or homicidal ideation, hallucinations. PHYSICAL EXAMINATION Vital Signs - 24 hr 05/24/19 14:05 Temperature 97.6 F Pulse Rate 60 Respiratory 16 Rate Blood Pressure 118/60 O2 Sat by Pulse 99 Oximetry (%) GENERAL: awake alert and fully oriented no acute distress HEAD: normal EYES: pupils equal round and reactive to light NECK: normal no JVD LUNGS: breath sounds equal clear to auscultation bilaterally no wheezes no crackles no accessory muscle use HEART: regular rate and rhythm normal S1 and S2 without murmur ABDOMEN: soft nontender not distended normoactive bowel sounds MUSCULOSKELETAL: normal range of motion at all joints UPPER EXTREMITIES: 2+ pulses, warm, well-perfused no cyanosis LOWER EXTREMITIES:2+ pulses, warm, well-perfused no calf tenderness no peripheral edema NEUROLOGICAL: no neuro focal deficits normal speech PSYCHIATRIC: cooperative good eye contact appropriate mood and affect. SKIN: warm dry normal turgor no rashes or lesions noted Laboratory Results - last 24 hr 05/24/19 05/24/19 05/24/19 15:09 15:09 15:09 WBC 11.5 H RBC 3.38 L Hgb 9.4 L Hct 29.5 L MCV 87.4 MCH 27.8 MCHC 31.8 L RDW 17.3 H Plt Count 191 D MPV 8.7 Absolute Neuts (auto) 9.8 H Neutrophils % 85.1 H Lymphocytes % 7.8 L D Monocytes % 6.4 Eosinophils % 0.0 D Basophils % 0.7 Nucleated RBC % 0 PT with INR 12.30 INR 1.04 Sodium 140 Potassium 4.4 Chloride 106 Carbon Dioxide 27 Anion Gap 7 L BUN 35.6 H Creatinine 2.4 H Est GFR (CKD-EPI)AfAm 26.90 Est GFR (CKD-EPI)NonAf 23.21 Random Glucose 126 H Calcium 8.7 Magnesium 2.6 H Total Bilirubin 0.6 AST 28 ALT 13 Alkaline Phosphatase 69 Troponin I Total Protein 7.4 Albumin 3.0 L Urine Color Urine Appearance Urine pH Ur Specific Grant Urine Protein Urine Glucose (UA) Urine Ketones Urine Blood Urine Nitrite Urine Bilirubin Urine Urobilinogen Ur Leukocyte Esterase Urine WBC (Auto) Urine RBC (Auto) Urine Casts (Auto) U Epithel Cells (Auto) Urine Bacteria (Auto) Urine Osmolality Ur Random Creatinine Ur Random Sodium Ur Random Potassium Ur Random Chloride 05/24/19 05/24/19 05/24/19 15:09 16:44 17:30 WBC RBC Hgb Hct MCV MCH MCHC RDW Plt Count MPV Absolute Neuts (auto) Neutrophils % Lymphocytes % Monocytes % Eosinophils % Basophils % Nucleated RBC % PT with INR INR Sodium Potassium Chloride Carbon Dioxide Anion Gap BUN Creatinine Est GFR (CKD-EPI)AfAm Est GFR (CKD-EPI)NonAf Random Glucose Calcium Magnesium Total Bilirubin AST ALT Alkaline Phosphatase Troponin I < 0.02 Total Protein Albumin Urine Color Yellow Urine Appearance Clear Urine pH 6.0 D Ur Specific Grant 1.017 Urine Protein 2+ H Urine Glucose (UA) Negative Urine Ketones Negative Urine Blood 1+ H Urine Nitrite Negative Urine Bilirubin Negative Urine Urobilinogen 0.2 Ur Leukocyte Esterase Trace Urine WBC (Auto) 18 Urine RBC (Auto) 39 Urine Casts (Auto) 14 U Epithel Cells (Auto) 5.3 Urine Bacteria (Auto) 2.4 Urine Osmolality 528 Ur Random Creatinine Ur Random Sodium 47 Ur Random Potassium 107.0 Ur Random Chloride 112 05/24/19 17:30 WBC RBC Hgb Hct MCV MCH MCHC RDW Plt Count MPV Absolute Neuts (auto) Neutrophils % Lymphocytes % Monocytes % Eosinophils % Basophils % Nucleated RBC % PT with INR INR Sodium Potassium Chloride Carbon Dioxide Anion Gap BUN Creatinine Est GFR (CKD-EPI)AfAm Est GFR (CKD-EPI)NonAf Random Glucose Calcium Magnesium Total Bilirubin AST ALT Alkaline Phosphatase Troponin I Total Protein Albumin Urine Color Urine Appearance Urine pH Ur Specific Grant Urine Protein Urine Glucose (UA) Urine Ketones Urine Blood Urine Nitrite Urine Bilirubin Urine Urobilinogen Ur Leukocyte Esterase Urine WBC (Auto) Urine RBC (Auto) Urine Casts (Auto) U Epithel Cells (Auto) Urine Bacteria (Auto) Urine Osmolality Ur Random Creatinine 183.0 H Ur Random Sodium Ur Random Potassium Ur Random Chloride ASSESSMENT/PLAN: 88 year old male with history of [place], coronary artery disease with 2 stents 11 years ago, abdominal aortic aneurym repaired 3 years ago and BPH who presents with a syncopal episode and in this setting reporting sharp right sided lower abdominal pain. He was found to have acute renal insufficiency, mild leukocytosis and a large nephritic hematoma. #1 Syncopy(Etiology Unclear) Workup-EKG normal sinus rhythm,no high degree AV block or Qtc prolongation, troponin normal. -Continue to monitor on telemetry for significant arrthymia, pauses or heart block -Will check D-Dimer, TSH. -Continue to trend troponins -Check echocardiogram to exclude aortic stenosis -Check orthostatic VS -Check carotid US -Cardiology consulted- Dr. Cline -Neurology consulted -Dr. Carney #2 Acute Renal Insufficiency Workup- Creatinine 2.4(baseline 1.0-1.9), sodium normal, no hyperkalemia. Renal US with bilateral cysts and no hydronephrosis. CT scan of abdomen and pelvis with large perinephritic hematoma. -Start IVF at 75cc/hr -Repeat BMP in am -Held HCTZ and losartan -Nephrology consulted- Dr. Noyola #3 Right Side Abdominal Pain/ Abdominal Aortic Aneurysm Repair CT scan of abdomen and pelvis WO revealed a large nephritic hematoma. Hemoglobin and hematocrit 9.4/29.5. No evidence of hypotension -Pending aorta US. -Repeat CBC in am -Vascular consulted - Dr. Meng #4 Leukocytosis UA with trace leukoesterase, negative nitrite. CXR with no acute findings. Currently afebrile -Repeat CBC in am -Consider Infectious Disease consult in am #5 Coronary Artery Disease Denies active anginal symptoms. Troponin normal. EKG- no signs of acute ischemia , no QTc prolongation. Aspirin and pletal placed on hold in setting of abnormal CT scan of abdomen. -Continue with statin and metoprolol tartrate. Losartan and HCTZ placed on hold due to ADAM. #6 Hyperlipidemia -Continue with statin therapy FEN IVF at 75cc/hr, monitor electrolytes, low sodium/heart healthy diet DVT Prophylaxsis TEDS/SCDS, no systemic anticoagulation due to hematoma Visit type - Emergency Visit Emergency Visit: Yes ED Registration Date: 05/24/19 Care time: The patient presented to the Emergency Department on the above date and was hospitalized for further evaluation of their emergent condition. - New Patient This patient is new to me today: Yes Date on this admission: 05/24/19 - Critical Care Critical Care patient: No
[2019-05-24] MEDS ORDERED: ENOXAPARIN NA (PORCINE) 30 MG/0.3 ML DISP.SYRIN SQ SCH (22:00)
[2019-05-24] MEDS ORDERED: METOPROLOL TARTRATE 50 MG TABLET (FP) PO SCH (22:00)
[2019-05-24] MEDS ORDERED: PATIENT'S OWN MEDICATION (NON-FORMULARY) (Metoprolol Tartrate [Metoprolol Tartrate] 100 MG PO SCH (22:00)
[2019-05-24] MEDS ORDERED: ATORVASTATIN CA 20 MG TABLET (FP) PO SCH (22:00)
[2019-05-24] MEDS ORDERED: CILOSTAZOL 100 MG TABLET PO SCH (22:00)
[2019-05-24] MEDS ORDERED: PIPERACILLIN/TAZOB 2.25 GM 2.25 GM in DEXTROSE 5%-WATER - 50 ML IVPB ONE (23:17)
[2019-05-24] MEDS ORDERED: PIPERACILLIN/TAZOBACTAM 2.25 GM VIAL IVPB ONE (23:57)
[2019-05-24] MEDS ORDERED: DEXTROSE 5%-WATER - 50 ML IVPB ONE (23:58)
[2019-05-25] MEDS ORDERED: MELATONIN 5 MG TABLETS PO ONE (00:57)
[2019-05-25] MEDS: SODIUM CHLORIDE 1,000 ML IV SCH ×2 (02:00→16:42)
[2019-05-25 06:50] LABS: BASO % 0.5 % (0-2.0); EOS % 0.2 % (0-4.5); HEMATOCRIT 23.5 % (35.4-49); HEMOGLOBIN 7.6 GM/dL (11.7-16.9); LYMPH % 11.7 % (8-40); MCH 28.7 pg (25.7-33.7); MCHC 32.5 g/dl (32.0-35.9); MEAN CELL VOLUME 88.1 fl (80-96); MEAN PLT VOLUME 8.8 fl (7.5-11.1); MONO % 7.6 % (3.8-10.2); PLATELET COUNT 139 K/MM3 (134-434); RBC 2.67 M/mm3 (4.00-5.60); RDW 16.9 % (11.9-15.9); WHITE BLOOD COUNT 9.4 K/mm3 (4.0-10.0)
[2019-05-25 07:36] LABS: ANION GAP 7 MMOL/L (8-16); BLOOD UREA NITROGEN 40.2 mg/dL (7-18); CALCIUM 7.9 mg/dL (8.5-10.1); CHLORIDE 107 mmol/L (98-107); CO2 25 mmol/L (21-32); CREATININE 2.5 mg/dL (0.55-1.3); GLUCOSE,RANDOM 113 mg/dL (74-106); MAGNESIUM 2.4 mg/dL (1.8-2.4); POTASSIUM 4.4 mmol/L (3.5-5.1); SODIUM 139 mmol/L (136-145)
--- NOTE | 2019-05-25 09:15 | CON.CARD ---
Consult Consult Specialty:: Cardiology Referred by:: Stephen Willis MD Reason for Consultation:: Syncope - History of Present Illness Chief Complaint: Syncope History of Present Illness: CHIEF COMPLAINT: passed out and reported had right sided lower abdominal pain PCP:Dr. Willis Film Casting Operator: Dr. Nadia Middleton HISTORY OF PRESENT ILLNESS: This is an 88 year old male with history of coronary artery disease s/p SD KAVYA RCA 02/21/2008, abdominal aortic aneurysm s/p EVAR 08/03/2015, PAD, CKD and BPH , lumbar radiculopathy last seen in office 05/14/2019 presented post syncopal episode . He reports he was at home,shaved and was walking around in his home and felt severe right-sided lower abdominal pain and near syncope prior to this event and then was found passed out on the floor by his . He denied chest pain, shortness of breath, palpitations, diaphoresis or flushing. He reports not drinking an adequate amount of water. He denied fever, chills, nausea, vomitting or diarrhea. Upon evaluation in the ER he was found to have a creatinine of 2.4(baseline 1.1- 1.9),WBC 11.5, magnesium 2.6, hgb 9.[address] scan of head showed no acute intracranial findings. CT scan of abdomen and pelvis demonstrated a large right perinephritic hematoma. , Hgb 9.4->7.6 Renal US showed no evidence of hydronephrosis and bilateral renal cysts. Recent Travel:denies PAST MEDICAL HISTORY: coronary artery disease with stents BPH PAST SURGICAL HISTORY: abdominal aortic aneurysm repair Social History: Smoking:denies Alcohol:denies Drugs: denies - History Source History Provided By: Patient Limitations to Obtaining History: No Limitations - Past Medical History Cardio/Vascular: Yes: CAD (s/p stents x2 - 7 years ago), HTN, Hyperlipdemia, SD , Other (LV dysfunction, carotid stenosis) Renal/: Yes: Renal Inusuff Musculoskeletal: Yes: Other (Lumbosacral disc disease) Additional Medical History: PAD, carotid stenosis - Past Surgical History Past Surgical History: Yes: Stent - Alcohol/Substance Use Hx Alcohol Use: No - Smoking History Smoking history: Former smoker Have you smoked in the past 12 months: No If you are a former smoker, when did you quit?: 2000 - Social History ADL: Independent History of Recent Travel: No Home Medications - Allergies Allergies/Adverse Reactions: Allergies Allergy/AdvReac Type Severity Reaction Status Date / Time No Known Allergies Allergy Verified 05/24/19 14:18 - Home Medications Home Medications: Ambulatory Orders Cilostazol 100 mg PO BID tablet 08/03/14 Simvastatin 40 mg PO DAILY tablet 08/03/14 Metoprolol Tartrate 100 mg PO BID 08/01/15 Losartan/Hydrochlorothiazide [Losartan-Hctz 100-25 mg Tab] 1 each PO DAILY 03/14 Aspirin [ASA -] 81 mg PO DAILY 05/24/19 Review of Systems - Review of Systems Genitourinary: reports: Flank Pain Neurological: reports: Syncope Vital Signs: Vital Signs Temperature 98.2 F 05/25/19 02:19 Pulse Rate 56 L 05/25/19 08:00 Respiratory Rate 24 H 05/25/19 08:00 Blood Pressure 121/57 L 05/25/19 08:00 O2 Sat by Pulse Oximetry (%) 100 05/24/19 21:00 Constitutional: Yes: No Distress, Calm Neck: Yes: Supple Respiratory: Yes: Regular, CTA Bilaterally Gastrointestinal: Yes: Soft, Hypoactive Bowel Sounds Cardiovascular: Yes: Regular Rate and Rhythm JVD: No Carotid Bruit: No Heart Sounds: Yes: S1, S2 Murmur: Yes: Systolic Murmur, Grade 1 Edema: No - Other Data Labs, Other Data: CBC, BMP 05/25/19 06:04 05/25/19 06:04 INR, PTT INR 1.04 (0.83-1.09) 05/24/19 15:09 Troponin, BNP 05/24/19 05/24/19 05/25/19 15:09 21:30 06:04 Troponin I < 0.02 < 0.02 < 0.02 Troponin, BNP 05/24/19 05/24/19 05/25/19 15:09 21:30 06:04 Troponin I < 0.02 < 0.02 < 0.02 Assessment/Plan 11/20/2018 Echo: Normal LV size with mod LVH, normal LV systolic fxn, grade I diastolic dysfunction, normal atrial sizes, mild TR RVSP 19 mmHg, mild SC, unchanged from 02/20/2017 03/04/2017 Lexiscan Myoview: Moderate size inferior, inferobasal infarct LVEF 77 % 1. Syncope due to high vagal tone referable to pain and hypovolemia due to blood loss/hematoma 2. CAD s/p SD s/p KAVYA RCA 3. Diastolic dysfunction 4. Acute on CKD due to hypovolemia, blood loss and right perinephric hematoma 5. Right perinephric hematoma 6. AAA s/p EVAR 7. PAD P:1. Hold losartan and HCTZ pending renal recovery, IVF with f/u renal fxn and electrolytes 2. Renal and urology input pending 3. Hold ASA and Pletal pending hemostasis, trend Hgb and transfuse for Hgb<8.0 4. Continue Lopressor 100 bid and Zocor 40 qhs as hemodynamics tolerate 5. Thank you for consultative opportunity
[2019-05-25] MEDS ORDERED: PATIENT'S OWN MEDICATION (NON-FORMULARY) (Simvastatin [Simvastatin] 40 MG) PO SCH (10:00)
[2019-05-25] MEDS ORDERED: HYDROCHLOROTHIAZIDE 25 MG TABLET (FP) PO SCH (10:00)
[2019-05-25] MEDS ORDERED: ASPIRIN 81 MG CHEWABLE TABLETS PO SCH (10:00)
[2019-05-25] MEDS ORDERED: PATIENT'S OWN MEDICATION (NON-FORMULARY) (Losartan/Hydrochlorothiazide [Losartan-Hctz 100- PO SCH (10:00)
[2019-05-25] MEDS ORDERED: LOSARTAN POTASSIUM 100 MG TABLET PO SCH (10:00)
--- NOTE | 2019-05-25 10:22 | ECHO ---
Version: 1 Name: HARLEY MART Exam: Adult Echocardiogram Study Date: 05/25/2019, 7:53 AM Age: 88 Years MMode/2D Measurements & Calculations IVSd: 1.41 cm LVIDs: 2.40 cm LVIDd: 4.1 cm LVPWd: 1.31 cm LVOT diam: 1.97 cm Ao root diam: 3.2 cm LA dimension: 4.4 cm Doppler Measurements & Calculations MV E max markie: 47.1 cm/sec Med E/e': 9.8 MV A max markie: 94.1 cm/sec Med Peak E' Markie: 4.8 cm/sec MV E/A: 0.50 Lat E/e': 9.2 Lat Peak E' Markie: 5.1 cm/sec Ao max P.6 mmHg Ao V2 max: 154.7 cm/sec Left Ventricle The left ventricular size, thickness and function are normal. Ejection Fraction = 60. Right Ventricle The right ventricle is not well visualized. Atria Normal left and right atrial size and function. Mitral Valve The mitral valve is grossly normal. There is trace mitral regurgitation. Tricuspid Valve The tricuspid valve is not well visualized, but is grossly normal. There is trace tricuspid regurgit ation. Aortic Valve There is mild aortic sclerosis.;. Pulmonic Valve The pulmonic valve is not well visualized. Great Vessels The aortic root is normal size. Normal aortic arch, descending and ascending aorta. Pericardium/Pleura There is no pericardial effusion. Summary Statements The left ventricular size, thickness and function are normal The right ventricle is not well visualized. Normal left and right atrial size and function. The mitral valve is grossly normal. There is trace mitral regurgitation. The tricuspid valve is not well visualized, but is grossly normal. There is trace tricuspid regurgitation. There is mild aortic sclerosis.; The pulmonic valve is not well visualized. The aortic root is normal size. Normal aortic arch, descending and ascending aorta There is no pericardial effusion. Naresh Duggan 05/25/2019, 9:21 AM Ordering Physician: Abby Roca Performed By: Carolynn Blas
[2019-05-25] MEDS: METOPROLOL TARTRATE 50 MG TABLET (FP) PO SCH ×2 (10:27→21:37)
--- NOTE | 2019-05-25 11:21 | PN ---
Progress Note (short form) - Note Progress Note: Vascular Surgery Pt had EVAR for 6.5AAA back in 08/01. Pt never followed up after that. Now comes back for right sided abdominal pain with bleeding around right kidney. Looking at the CT abd images, the EVAR stent is in place. However without contrast we cannot know if the bleeding in the area is caused by a leak in the stent. This is very unlikely because the sac of the aneurysm has not become bigger. It has become smaller. But the only definitive way to know is to do a contrast CTA. Please optimize for study if possible. Will continue to follow. Florencio Meng DO
--- NOTE | 2019-05-25 11:26 | PN ---
Progress Note (short form) - Note Progress Note: ID CONSULT DICTATED R PERINEPHRIC HEMATOMA ? ETIO LEUKOCYTOSIS - RESOLVED OBTAIN CULTURES OBSERVE OFF ANTIBIOTICS
--- NOTE | 2019-05-25 11:57 | CONS ---
INFECTIOUS DISEASE CONSULTATION DATE OF CONSULTATION: DATE OF DICTATION: 05/25/2019 HISTORY: The patient is an 88-year-old male who was evaluated for leukocytosis. He was admitted to the hospital on May 24, 2019. The patient developed sudden onset of severe, right flank pain followed by syncopal episode. The patient denies sustaining any trauma. No head trauma or trunk trauma. He specifically remembers developing the pain prior to the syncopal episode. He was evaluated at [facility] where CAT scan of the head was negative for acute infarct or bleed. Chest x-ray showed atelectasis at the left base. A CAT scan of the abdomen and pelvis was performed and showed a large right perinephric hematoma. His course was complicated by white blood cell count elevation 11.5. He has no recall for any trauma to his right flank. He denies any associated fever or chills. He denies any urinary tract symptoms. No complaints of dysuria or hematuria. Of note, the patient underwent a urinary bladder cyst removal in February 2019. He was hospitalized for several days in late February and early March for a urinary tract infection. Cultures at that time were negative. Patient denies any surgery on his right kidney. He reports previously being on Plavix, however, has been off that. PAST MEDICAL HISTORY: Positive for coronary artery disease, BPH, hypertension, hyperlipidemia. PAST SURGICAL HISTORY: Status post coronary artery stent, abdominal aortic aneurysm repair in 2014. ALLERGIES: No known allergies. MEDICATIONS: Simvastatin, metoprolol, losartan, aspirin. SOCIAL HISTORY: He lives in the community. Former smoker. SYSTEMS REVIEW: Neurologic: As per HPI. Cardiac: Negative chest pain or palpitations. Respiratory: Negative cough or sputum production. Gastrointestinal: Negative vomiting or diarrhea. Genitourinary: As per HPI. LABORATORY DATA: White count on admission 11.5, presently 9.4, hematocrit 23.5, platelet count 139, BUN 40, creatinine 2.5. Urinalysis: 18 white cells. PHYSICAL EXAMINATION: General: He is awake and alert. He is in no acute distress. Vital Signs: Temperature 98.2, blood pressure 121/57, pulse 56 regular, respirations 24 per minute. HEENT: Sclerae anicteric. Heart: Sounds S1, S2. Lungs: Clear. Abdomen: Soft. Nontender. No flank tenderness. Extremities: Negative for edema. IMPRESSION: 1. Right perinephric hematoma, unclear etiology. 2. Leukocytosis, resolved. PLAN: Would obtain cultures. Observe off antibiotic therapy. Urology evaluation. Thank you for the kind referral. PABLO ROSAS M.D. [id number]
--- NOTE | 2019-05-25 12:04 | EKG ---
Test Reason : Blood Pressure : / mmHG Vent. Rate : 058 BPM Atrial Rate : 058 BPM P-R Int : 154 ms QRS Dur : 100 ms QT Int : 428 ms P-R-T Axes : 005 -28 042 degrees QTc Int : 420 ms SINUS BRADYCARDIA INFERIOR INFARCT (CITED ON OR BEFORE 01-AUG-2015) ABNORMAL ECG Confirmed by Jose Antonio Pérez ([id number]) on 05/25/2019 12:03:40 PM Referred By: Cruzito GROSS Confirmed By:Jose Antonio Pérez
--- NOTE | 2019-05-25 12:08 | EKG ---
Test Reason : Blood Pressure : / mmHG Vent. Rate : 060 BPM Atrial Rate : 060 BPM P-R Int : 178 ms QRS Dur : 098 ms QT Int : 456 ms P-R-T Axes : 021 -32 039 degrees QTc Int : 456 ms NORMAL SINUS RHYTHM LEFT AXIS DEVIATION INFERIOR INFARCT (CITED ON OR BEFORE 01-AUG-2015) ABNORMAL ECG WHEN COMPARED WITH ECG OF 14-MAR-2019 13:43, NO SIGNIFICANT CHANGE WAS FOUND Confirmed by Jose Antonio Pérez ([id number]) on 05/25/2019 12:07:30 PM Referred By: Confirmed By:Jose Antonio Pérez
--- NOTE | 2019-05-25 12:10 | CONSULT ---
Consult - text type - Consultation Consultation Note: NEUROLOGY CONSULT GREATLY APPRECIATED: This 88 yo RH man lives alone. Independent in ADL's and ambulates independently. PMHX: CAD s/p stents, AAA repair 3 years ago, HTN, HLD, [place], PAD, CKD, BPH and LS stenosis. On: cilostazol, simvastatin, metoprolol, losartan/HCTZ, ASA 81. Progressive gait dysfunction since his AAA 3 years ago with recurrent falls. Previously he walked 2-3 miles, now limited by LBP with radiation into legs. He reports difficulty climbing stairs, walking uphill, or standing in one place too long, requiring him to sit down and rest. Many falls during nighttime and from "tripping" on objects on floor. Admitted after acute "stabbing" low back pain without radiation, that brought him to his knees. He does not recall hitting his head or LOC. He crawled to the telephone and called his friend to bring him to the hospital. WBC 11.5; H/H 9.4/29.5 -> 7.6/23.5; BUN/CR 40.2/2.5; TSH= 0.72 CT of brain (reviewed): Moderate diffuse atrophy with sulcal widening. Chronic periventricular microvascular ischemic changes. Carotid duplex: Mod plaques at bifurcation RCC. LCC stenosis approximately 50-69 %. CT A/P: noted with large perinephritic hematoma. BEBA: Bps 120-150/60-90s. Cor reg. No bruit. Neck supple. No evidence of head trauma. Neg SLR. NEURO: Awake, alert, responsive. [facility] April 25, 2019. TRUMP. Poor reversal. / recall @ 3. + glabella, grasps CNII-CNXII: EOM's full. Full cash. No facial. Gag ok. Motor: No drift. + cogwheeling. Decreased MIKE's B/L. Strength normal. Reflexes normal except absent AJ's. Plantars silent. Coordination: No FTN dystaxia, but slowed. Sensation: Reduced vibration in feet. Unable to test Romberg. Gait: variable, unsteady - produces "dizziness" requiring pt to lie down. Impression: Mild B/L cerebral dysfunction. 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
--- NOTE | 2019-05-25 14:14 | CONSULT ---
Consult Consult Specialty:: Nephrology Reason for Consultation:: ADAM - History of Present Illness Chief Complaint: left flank pain History of Present Illness: Pt is an 88 year old male with pmhx of CAD, AAA, BPH, endovascular aortic repair , and bladder cysts who presents to the ER with an episode of syncope and right flank pain. He was found to be in acute renal failure. He denies history of CKD. He denies shortness of breath. He was found to have a right perinephric hematoma. He needs a ct angio to evaluate the AAA. He is awake and alert. He denies dysuria or hematuria. - History Source History Provided By: Patient, Medical Record - Past Medical History Cardio/Vascular: Yes: CAD (s/p stents x2 - 7 years ago), HTN, Hyperlipdemia, [place] , Other (LV dysfunction, carotid stenosis) Renal/: Yes: Renal Inusuff Musculoskeletal: Yes: Other (Lumbosacral disc disease) Additional Medical History: PAD, carotid stenosis - Past Surgical History Past Surgical History: Yes: Stent - Alcohol/Substance Use Hx Alcohol Use: No - Smoking History Smoking history: Former smoker Have you smoked in the past 12 months: No If you are a former smoker, when did you quit?: 2000 - Social History ADL: Independent History of Recent Travel: No Home Medications - Allergies Allergies/Adverse Reactions: Allergies Allergy/AdvReac Type Severity Reaction Status Date / Time No Known Allergies Allergy Verified 05/24/19 14:18 - Home Medications Home Medications: Ambulatory Orders Cilostazol 100 mg PO BID tablet 08/03/14 Simvastatin 40 mg PO DAILY tablet 08/03/14 Metoprolol Tartrate 100 mg PO BID 08/01/15 Losartan/Hydrochlorothiazide [Losartan-Hctz 100-25 mg Tab] 1 each PO DAILY 03/14 Aspirin [ASA -] 81 mg PO DAILY 05/24/19 Family Disease History - Family Disease History Family History: Denies Review of Systems - Review of Systems Constitutional: reports: Malaise Eyes: reports: No Symptoms HENT: reports: No Symptoms Neck: reports: No Symptoms Cardiovascular: reports: No Symptoms Respiratory: reports: No Symptoms Gastrointestinal: reports: No Symptoms Genitourinary: reports: Flank Pain Musculoskeletal: reports: No Symptoms Integumentary: reports: No Symptoms Neurological: reports: Change in LOC Endocrine: reports: No Symptoms Hematology/Lymphatic: reports: No Symptoms Psychiatric: reports: No Symptoms Physical Exam Vital Signs: Vital Signs Temperature 98.0 F 05/25/19 10:00 Pulse Rate 84 05/25/19 12:00 Respiratory Rate 24 H 05/25/19 12:00 Blood Pressure 140/61 05/25/19 12:00 O2 Sat by Pulse Oximetry (%) 98 05/25/19 09:00 Constitutional: Yes: Calm Eyes: Yes: Conjunctiva Clear HENT: Yes: Atraumatic Neck: Yes: Supple Cardiovascular: Yes: S1, S2 Respiratory: Yes: CTA Bilaterally Gastrointestinal: Yes: Soft, Abdomen, Obese Renal/: Yes: WNL Musculoskeletal: Yes: WNL Edema: No Neurological: Yes: Oriented Psychiatric: Yes: Oriented Labs: CBC, BMP 05/25/19 06:04 05/25/19 06:04 Imaging - Results Chest X-ray: Report Reviewed Cat Scan: Report Reviewed Problem List - Problems (1) ADAM (acute kidney injury) Code(s): N17.9 - ACUTE KIDNEY FAILURE, UNSPECIFIED (2) Aortic aneurysm, abdominal Code(s): I71.4 - ABDOMINAL AORTIC ANEURYSM, WITHOUT RUPTURE Assessment/Plan Current Medications Generic Name Dose Route Start Last Admin Trade Name Freq PRN Reason Stop Dose Admin Atorvastatin Calcium 20 mg 05/25/19 22:00 Lipitor - PO HS RENARD Sodium Chloride 1,000 mls @ 75 mls/hr 05/25/19 02:10 05/25/19 02:00 Normal Saline - IV 75 mls/hr ASDIR RENARD Administration Metoprolol Tartrate 100 mg 05/25/19 10:00 05/25/19 10:27 Lopressor - PO 100 mg BID RENARD Administration Impression 1. ADAM 2. AAA 3. BPH 4. CAD 5. perinephric hematoma Plan - pt is at high risk for FRANCISCO - monitor renal function closely - agree with holding arb and thiazide - cont fluids, will also add mucomyst - vascular input appreciated
[2019-05-25] MEDS ORDERED: ACETYLCYSTEINE 20% 200MG/ML 30 ML VIAL *FOR ORAL / INH USE ONLY PO SCH (14:30)
--- NOTE | 2019-05-25 16:24 | PN ---
Progress Note (short form) - Note Progress Note: Events noted at bedside has pain in right side of abdomen Vital Signs - 24 hr 05/24/19 05/24/19 05/25/19 16:44 21:00 02:19 Temperature 98.5 F 98.2 F Pulse Rate 66 Respiratory 17 18 Rate Blood Pressure 150/85 153/76 O2 Sat by Pulse 100 100 Oximetry (%) 05/25/19 05/25/19 05/25/19 06:00 08:00 09:00 Temperature Pulse Rate 56 L Respiratory 18 24 H Rate Blood Pressure 132/64 121/57 L O2 Sat by Pulse 98 Oximetry (%) 05/25/19 05/25/19 10:00 12:00 Temperature 98.0 F Pulse Rate 63 84 Respiratory 22 H 24 H Rate Blood Pressure 131/61 140/61 O2 Sat by Pulse Oximetry (%) Current Medications Generic Name Dose Route Start Last Admin Trade Name Freq PRN Reason Stop Dose Admin Acetylcysteine 600 mg 05/25/19 14:30 Mucomyst 20 Oral / Inh Use Only* PO 05/27/19 02:31 Q12H RENARD Atorvastatin Calcium 20 mg 05/25/19 22:00 Lipitor - PO HS RENARD Sodium Chloride 1,000 mls @ 75 mls/hr 05/25/19 02:10 05/25/19 02:00 Normal Saline - IV 75 mls/hr ASDIR RENARD Administration Metoprolol Tartrate 100 mg 05/25/19 10:00 05/25/19 10:27 Lopressor - PO 100 mg BID RENARD Administration Laboratory Results - last 24 hr 05/24/19 05/24/19 05/24/19 16:44 17:30 17:30 WBC RBC Hgb Hct MCV MCH MCHC RDW Plt Count MPV Absolute Neuts (auto) Neutrophils % Lymphocytes % Monocytes % Eosinophils % Basophils % Nucleated RBC % D-Dimer Sodium Potassium Chloride Carbon Dioxide Anion Gap BUN Creatinine Est GFR (CKD-EPI)AfAm Est GFR (CKD-EPI)NonAf Random Glucose Calcium Magnesium Troponin I TSH Urine Color Yellow Urine Appearance Clear Urine pH 6.0 D Ur Specific [place] 1.017 Urine Protein 2+ H Urine Glucose (UA) Negative Urine Ketones Negative Urine Blood 1+ H Urine Nitrite Negative Urine Bilirubin Negative Urine Urobilinogen 0.2 Ur Leukocyte Esterase Trace Urine WBC (Auto) 18 Urine RBC (Auto) 39 Urine Casts (Auto) 14 U Epithel Cells (Auto) 5.3 Urine Bacteria (Auto) 2.4 Urine Osmolality 528 Ur Random Creatinine 183.0 H Ur Random Sodium 47 Ur Random Potassium 107.0 Ur Random Chloride 112 05/24/19 05/25/19 05/25/19 21:30 06:04 06:04 WBC 9.4 RBC 2.67 L Hgb 7.6 L Hct 23.5 L D MCV 88.1 MCH 28.7 MCHC 32.5 RDW 16.9 H Plt Count 139 D MPV 8.8 Absolute Neuts (auto) 7.6 Neutrophils % 80.0 Lymphocytes % 11.7 D Monocytes % 7.6 Eosinophils % 0.2 D Basophils % 0.5 Nucleated RBC % 0 D-Dimer Sodium 139 Potassium 4.4 Chloride 107 Carbon Dioxide 25 Anion Gap 7 L BUN 40.2 H Creatinine 2.5 H Est GFR (CKD-EPI)AfAm 25.61 Est GFR (CKD-EPI)NonAf 22.10 Random Glucose 113 H Calcium 7.9 L Magnesium 2.4 Troponin I < 0.02 < 0.02 TSH 0.72 Urine Color Urine Appearance Urine pH Ur Specific [place] Urine Protein Urine Glucose (UA) Urine Ketones Urine Blood Urine Nitrite Urine Bilirubin Urine Urobilinogen Ur Leukocyte Esterase Urine WBC (Auto) Urine RBC (Auto) Urine Casts (Auto) U Epithel Cells (Auto) Urine Bacteria (Auto) Urine Osmolality Ur Random Creatinine Ur Random Sodium Ur Random Potassium Ur Random Chloride 05/25/19 06:04 WBC RBC Hgb Hct MCV MCH MCHC RDW Plt Count MPV Absolute Neuts (auto) Neutrophils % Lymphocytes % Monocytes % Eosinophils % Basophils % Nucleated RBC % D-Dimer [id number] H Sodium Potassium Chloride Carbon Dioxide Anion Gap BUN Creatinine Est GFR (CKD-EPI)AfAm Est GFR (CKD-EPI)NonAf Random Glucose Calcium Magnesium Troponin I TSH Urine Color Urine Appearance Urine pH Ur Specific [place] Urine Protein Urine Glucose (UA) Urine Ketones Urine Blood Urine Nitrite Urine Bilirubin Urine Urobilinogen Ur Leukocyte Esterase Urine WBC (Auto) Urine RBC (Auto) Urine Casts (Auto) U Epithel Cells (Auto) Urine Bacteria (Auto) Urine Osmolality Ur Random Creatinine Ur Random Sodium Ur Random Potassium Ur Random Chloride S1 S2 RRR Lungs clear Abd- soft, distended, tender right flank' Ext-- no edema PLAN noted decreased Hb-- will transfuse 2 units PRBC spoke with vascular-- will order CTA aorta- check AAA -- had repair done 2014 monitor CBC Renal eval noted-- will need to administer Mucomyst, iv fluids to prevent FRANCISCO - monitor renal function Urology eval - perinephric hematoma pt was on ASA-- hold for now prognosis guarded Problem List - Problems (1) HTN (hypertension) Code(s): I10 - ESSENTIAL (PRIMARY) HYPERTENSION (2) ADAM (acute kidney injury) Code(s): N17.9 - ACUTE KIDNEY FAILURE, UNSPECIFIED (3) Aortic aneurysm, abdominal Code(s): I71.4 - ABDOMINAL AORTIC ANEURYSM, WITHOUT RUPTURE (4) CAD (coronary artery disease) Code(s): I25.10 - ATHSCL HEART DISEASE OF [place] CORONARY ARTERY W/O ANG PCTRS
[2019-05-25 17:10] LABS: HEMATOCRIT 22.4 % (35.4-49); MCH 27.9 pg (25.7-33.7); MCHC 31.3 g/dl (32.0-35.9); MEAN PLT VOLUME 9.2 fl (7.5-11.1); PLATELET COUNT 165 K/MM3 (134-434); RBC 2.52 M/mm3 (4.00-5.60); RDW 17.4 % (11.9-15.9)
[2019-05-25] MEDS ORDERED: PT OWN MED DRAWER 7, Y5N ONE (18:16)
[2019-05-25] MEDS: ATORVASTATIN CA 20 MG TABLET (FP) PO SCH (21:37)
[2019-05-26] MEDS: SODIUM CHLORIDE 1,000 ML IV SCH (02:00)
[2019-05-26 03:36] LABS: EPI CELLS 2.8 /HPF (0-5/HPF); HYALINE CASTS 6 /lpf (0-8); URINE APPEARANCE CLOUDY; URINE BACTERIA 1.2 /hpf (NEGATIVE); URINE BILIRUBIN NEGATIVE (NEGATIVE); URINE COLOR YELLOW; URINE GLUCOSE (UA) NEGATIVE (NEGATIVE); URINE KETONE NEGATIVE (NEGATIVE); URINE LEUK ESTERASE TRACE (NEGATIVE); URINE NITRITE NEGATIVE (NEGATIVE); URINE PROTEIN 1+ (NEGATIVE); URINE RBC 27 /hpf (0-4); URINE UROBILINOGEN 0.2 mg/dL (0.2-1.0); URINE WBC 13 /hpf (0-5)
[2019-05-26] MEDS: ACETYLCYSTEINE 20% 200MG/ML 4 ML VIAL *FOR ORAL / INH USE ONLY PO SCH ×2 (05:31→18:00)
[2019-05-26 06:45] LABS: HEMATOCRIT 28.3 % (35.4-49); HEMOGLOBIN 9.3 GM/dL (11.7-16.9); MCH 29.4 pg (25.7-33.7); MCHC 32.8 g/dl (32.0-35.9); MEAN CELL VOLUME 89.6 fl (80-96); MEAN PLT VOLUME 9.2 fl (7.5-11.1); PLATELET COUNT 118 K/MM3 (134-434); RBC 3.15 M/mm3 (4.00-5.60); WHITE BLOOD COUNT 10.4 K/mm3 (4.0-10.0)
[2019-05-26 07:40] LABS: POTASSIUM 4.2 mmol/L (3.5-5.1)
[2019-05-26 08:03] LABS: ALBUMIN 2.4 g/dl (3.4-5.0); BILIRUBIN,TOTAL 0.8 mg/dL (0.2-1); BLOOD UREA NITROGEN 46.3 mg/dL (7-18); CALCIUM 7.9 mg/dL (8.5-10.1); CREATININE 2.6 mg/dL (0.55-1.3); TOT PROT 6.2 g/dl (6.4-8.2)
--- NOTE | 2019-05-26 08:58 | PN ---
Progress Note (short form) - Note Progress Note: Vascular Surgery Dr. Meng's note reviewed. h/o EVAR for 6.5 AAA 07/2015. Pt never followed up with on-going surveillance. Will get CTA once Cr normalizes. Will cont to follow. Medical optimization for above procedure. Problem List - Problems (1) ADAM (acute kidney injury) Code(s): N17.9 - ACUTE KIDNEY FAILURE, UNSPECIFIED (2) HTN (hypertension) Code(s): I10 - ESSENTIAL (PRIMARY) HYPERTENSION (3) Aortic aneurysm, abdominal Code(s): I71.4 - ABDOMINAL AORTIC ANEURYSM, WITHOUT RUPTURE
--- NOTE | 2019-05-26 09:45 | PN ---
Progress Note, Physician History of Present Illness: RLQ abd and flank pain improving, no further near or true syncope, s/p 2 u pRBC , hemodynamically stable. - Current Medication List Current Medications: Active Medications Acetylcysteine (Mucomyst 20 Oral / Inh Use Only*) 600 mg PO Q12H [facility] Stop: 05/27/19 06:01 Last Admin: 05/26/19 05:31 Dose: 600 mg Atorvastatin Calcium (Lipitor -) 20 mg PO HS [facility] Last Admin: 05/25/19 21:37 Dose: 20 mg Sodium Chloride (Normal Saline -) 1,000 mls @ 75 mls/hr IV ASDIR [facility] Last Admin: 05/26/19 02:00 Dose: Not Given Metoprolol Tartrate (Lopressor -) 100 mg PO BID [facility] Last Admin: 05/25/19 21:37 Dose: 100 mg - Objective Vital Signs: Vital Signs Temperature 97.5 F L 05/26/19 06:00 Pulse Rate 70 05/26/19 06:00 Respiratory Rate 20 05/26/19 06:00 Blood Pressure 142/70 05/26/19 06:00 O2 Sat by Pulse Oximetry (%) 98 05/25/19 22:00 Constitutional: Yes: No Distress, Calm, Thin Neck: Yes: Supple Cardiovascular: Yes: Regular Rate and Rhythm Respiratory: Yes: Regular, CTA Bilaterally Gastrointestinal: Yes: Soft, Hypoactive Bowel Sounds Edema: No Labs: CBC, BMP 05/26/19 05:22 05/26/19 05:22 INR, PTT INR 1.04 (0.83-1.09) 05/24/19 15:09 - ....Imaging EKG: Report Reviewed (Tele: NSR) Problem List - Problems (1) ADAM (acute kidney injury) Code(s): N17.9 - ACUTE KIDNEY FAILURE, UNSPECIFIED (2) HTN (hypertension) Code(s): I10 - ESSENTIAL (PRIMARY) HYPERTENSION Qualifiers: Hypertension type: essential hypertension Qualified Code(s): I10 - Essential (primary) hypertension (3) Aortic aneurysm, abdominal Code(s): I71.4 - ABDOMINAL AORTIC ANEURYSM, WITHOUT RUPTURE Qualifiers: Presence of rupture: without rupture Qualified Code(s): I71.4 - Abdominal aortic aneurysm, without rupture (4) CAD (coronary artery disease) Code(s): I25.10 - ATHSCL HEART DISEASE OF [place] CORONARY ARTERY W/O ANG PCTRS Qualifiers: Coronary Disease-Associated Artery/Lesion type: [place] artery [place] vs. transplanted heart: [place] heart Associated angina: without angina Qualified Code(s): I25.10 - Atherosclerotic heart disease of [place] coronary artery without angina pectoris (5) Hyperlipidemia Code(s): E78.5 - HYPERLIPIDEMIA, UNSPECIFIED (6) Traumatic perinephric hematoma of right kidney Code(s): S37.091A - OTHER INJURY OF RIGHT KIDNEY, INITIAL ENCOUNTER Qualifiers: Encounter type: subsequent encounter Qualified Code(s): S37.091D - Other injury of right kidney, subsequent encounter (7) S/P drug eluting coronary stent placement Code(s): Z95.5 - PRESENCE OF CORONARY ANGIOPLASTY IMPLANT AND GRAFT Assessment/Plan 11/20/2018 Echo: Normal LV size with mod LVH, normal LV systolic fxn, grade I diastolic dysfunction, normal atrial sizes, mild TR RVSP 19 mmHg, mild GA, unchanged from 02/20/2017 03/04/2017 Lexiscan Myoview: Moderate size inferior, inferobasal infarct LVEF 77 % 1. Syncope due to high vagal tone referable to pain and hypovolemia due to blood loss/hematoma 2. CAD s/p ND s/p KAVYA RCA 3. Diastolic dysfunction 4. Acute on CKD due to hypovolemia, blood loss and right perinephric hematoma 5. Right perinephric hematoma 6. 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 PAD 8. Hyperlipidemia P:1. Hold losartan and HCTZ pending renal recovery, IVF with f/u renal fxn and electrolytes 2. Pre-hydrate pre-CTA, pt is at high risk for FRANCISCO 3. Hold ASA and Pletal pending hemostasis, trend Hgb and transfuse for Hgb<8.0 4. Continue Lopressor 100 bid and Lipitor 20 qhs as hemodynamics tolerate
--- NOTE | 2019-05-26 10:40 | PN ---
Progress Note (short form) - Note Progress Note: has pain in right side of abdomen when palpated received 2 units of PRBC yesterday Vital Signs - 24 hr 05/25/19 05/25/19 05/25/19 12:00 14:00 16:40 Temperature Pulse Rate 84 78 65 Respiratory 24 H 23 H 19 Rate Blood Pressure 140/61 147/91 122/61 O2 Sat by Pulse Oximetry (%) 05/25/19 05/25/19 05/25/19 16:41 20:00 22:00 Temperature 98.0 F 97.8 F Pulse Rate 72 59 L Respiratory 22 H 21 H Rate Blood Pressure 123/58 L 133/59 L O2 Sat by Pulse 98 Oximetry (%) 05/26/19 05/26/19 05/26/19 00:00 01:00 02:00 Temperature 97.6 F Pulse Rate 63 67 68 Respiratory 20 22 H 22 H Rate Blood Pressure 139/72 131/94 152/79 O2 Sat by Pulse Oximetry (%) 05/26/19 05/26/19 05/26/19 03:09 04:00 06:00 Temperature 97.5 F L Pulse Rate 69 62 70 Respiratory 20 20 20 Rate Blood Pressure 149/79 144/75 142/70 O2 Sat by Pulse Oximetry (%) 05/26/19 05/26/19 09:00 10:00 Temperature 98.6 F Pulse Rate 65 Respiratory 19 Rate Blood Pressure 126/59 L O2 Sat by Pulse 99 Oximetry (%) Current Medications Generic Name Dose Route Start Last Admin Trade Name Freq PRN Reason Stop Dose Admin Acetylcysteine 600 mg 05/26/19 06:00 05/26/19 05:31 Mucomyst 20 Oral / Inh Use Only* PO 05/27/19 06:01 600 mg Q12H RENARD Administration Atorvastatin Calcium 20 mg 05/25/19 22:00 05/25/19 21:37 Lipitor - PO 20 mg HS RENARD Administration Sodium Chloride 1,000 mls @ 75 mls/hr 05/25/19 02:10 05/26/19 02:00 Normal Saline - IV Not Given ASDIR RENARD Metoprolol Tartrate 100 mg 05/25/19 10:00 05/25/19 21:37 Lopressor - PO 100 mg BID RENARD Administration Laboratory Results - last 24 hr 05/25/19 05/25/19 05/26/19 16:30 16:30 02:00 WBC 11.0 H RBC 2.52 L Hgb 7.0 L Hct 22.4 L MCV 89.0 MCH 27.9 MCHC 31.3 L RDW 17.4 H Plt Count 165 MPV 9.2 Sodium Potassium Chloride Carbon Dioxide Anion Gap BUN Creatinine Est GFR (CKD-EPI)AfAm Est GFR (CKD-EPI)NonAf Random Glucose Calcium Total Bilirubin AST ALT Alkaline Phosphatase Total Protein Albumin Vitamin B12 Urine Color Yellow Urine Appearance Cloudy Urine pH 5.0 Ur Specific [place] 1.015 Urine Protein 1+ H Urine Glucose (UA) Negative Urine Ketones Negative Urine Blood 3+ H Urine Nitrite Negative Urine Bilirubin Negative Urine Urobilinogen 0.2 Ur Leukocyte Esterase Trace Urine WBC (Auto) 13 Urine RBC (Auto) 27 Urine Casts (Auto) 6 U Epithel Cells (Auto) 2.8 Urine Bacteria (Auto) 1.2 Blood Type O POSITIVE Antibody Screen Negative Crossmatch See Detail 05/26/19 05/26/19 05:22 05:22 WBC 10.4 H RBC 3.15 L Hgb 9.3 L Hct 28.3 L D MCV 89.6 MCH 29.4 MCHC 32.8 RDW 16.0 H Plt Count 118 L D MPV 9.2 Sodium 139 Potassium 4.2 Chloride 107 Carbon Dioxide 25 Anion Gap 7 L BUN 46.3 H Creatinine 2.6 H Est GFR (CKD-EPI)AfAm 24.42 Est GFR (CKD-EPI)NonAf 21.07 Random Glucose 90 Calcium 7.9 L Total Bilirubin 0.8 AST 27 ALT 12 L Alkaline Phosphatase 66 Total Protein 6.2 L Albumin 2.4 L Vitamin B12 630 Urine Color Urine Appearance Urine pH Ur Specific [place] Urine Protein Urine Glucose (UA) Urine Ketones Urine Blood Urine Nitrite Urine Bilirubin Urine Urobilinogen Ur Leukocyte Esterase Urine WBC (Auto) Urine RBC (Auto) Urine Casts (Auto) U Epithel Cells (Auto) Urine Bacteria (Auto) Blood Type Antibody Screen Crossmatch S1 S2 RRR Lungs clear Abd- soft, distended, tender right flank' Ext-- no edema PLAN CTA aorta today noted elevated creatinine-- pt is aware of risks of FRANCISCO monitor CBC Renal eval noted-- will need to administer Mucomyst, iv fluids to prevent FRANCISCO - monitor renal function Urology eval - perinephric hematoma pt was on ASA-- hold for now prognosis guarded Problem List - Problems (1) HTN (hypertension) Code(s): I10 - ESSENTIAL (PRIMARY) HYPERTENSION Qualifiers: Hypertension type: essential hypertension Qualified Code(s): I10 - Essential (primary) hypertension (2) ADAM (acute kidney injury) Code(s): N17.9 - ACUTE KIDNEY FAILURE, UNSPECIFIED (3) Aortic aneurysm, abdominal Code(s): I71.4 - ABDOMINAL AORTIC ANEURYSM, WITHOUT RUPTURE Qualifiers: Presence of rupture: without rupture Qualified Code(s): I71.4 - Abdominal aortic aneurysm, without rupture (4) CAD (coronary artery disease) Code(s): I25.10 - ATHSCL HEART DISEASE OF [place] CORONARY ARTERY W/O ANG PCTRS Qualifiers: Coronary Disease-Associated Artery/Lesion type: [place] artery [place] vs. transplanted heart: [place] heart Associated angina: without angina Qualified Code(s): I25.10 - Atherosclerotic heart disease of [place] coronary artery without angina pectoris
[2019-05-26] MEDS: METOPROLOL TARTRATE 50 MG TABLET (FP) PO SCH ×2 (11:00→21:23)
[2019-05-26] MEDS ORDERED: ACETAMINOPHEN 325 MG TABLET (FP) PO PRN (11:08)
--- NOTE | 2019-05-26 13:07 | PN ---
Progress Note, Physician History of Present Illness: Pt seen and examined at bedside. He is awake and alert. He denies shortness of breath. He is aware of the risks of FRANCISCO and agrees to the CT angio. - Current Medication List Current Medications: Active Medications Acetaminophen (Tylenol -) 650 mg PO Q4H PRN PRN Reason: PAIN OR FEVER Last Admin: 05/26/19 11:25 Dose: 650 mg Acetylcysteine (Mucomyst 20 Oral / Inh Use Only*) 600 mg PO Q12H [facility] Stop: 05/27/19 06:01 Last Admin: 05/26/19 05:31 Dose: 600 mg Atorvastatin Calcium (Lipitor -) 20 mg PO HS [facility] Last Admin: 05/25/19 21:37 Dose: 20 mg Sodium Chloride (Normal Saline -) 1,000 mls @ 75 mls/hr IV ASDIR [facility] Last Admin: 05/26/19 02:00 Dose: Not Given Metoprolol Tartrate (Lopressor -) 100 mg PO BID [facility] Last Admin: 05/26/19 11:00 Dose: 100 mg - Objective Vital Signs: Vital Signs Temperature 98.6 F 05/26/19 10:00 Pulse Rate 65 05/26/19 10:00 Respiratory Rate 05/26/19 10:00 Blood Pressure 126/59 L 05/26/19 10:00 O2 Sat by Pulse Oximetry (%) 99 05/26/19 09:00 Constitutional: Yes: Calm Eyes: Yes: Conjunctiva Clear HENT: Yes: Atraumatic Neck: Yes: Supple Cardiovascular: Yes: S1, S2 Respiratory: Yes: On Nasal O2 Gastrointestinal: Yes: Soft Genitourinary: Yes: WNL Musculoskeletal: Yes: WNL Edema: No Neurological: Yes: Oriented Psychiatric: Yes: Oriented Labs: CBC, BMP 05/26/19 05:22 05/26/19 05:22 INR, PTT INR 1.04 (0.83-1.09) 05/24/19 15:09 Problem List - Problems (1) ADAM (acute kidney injury) Code(s): N17.9 - ACUTE KIDNEY FAILURE, UNSPECIFIED (2) Aortic aneurysm, abdominal Code(s): I71.4 - ABDOMINAL AORTIC ANEURYSM, WITHOUT RUPTURE Qualifiers: Presence of rupture: without rupture Qualified Code(s): I71.4 - Abdominal aortic aneurysm, without rupture Assessment/Plan Current Medications Generic Name Dose Route Start Last Admin Trade Name Nitza PRN Reason Stop Dose Admin Acetaminophen 650 mg 05/26/19 11:08 05/26/19 11:25 Tylenol - PO 650 mg Q4H PRN Administration PAIN OR FEVER Acetylcysteine 600 mg 05/26/19 06:00 05/26/19 05:31 Mucomyst 20 Oral / Inh Use Only* PO 05/27/19 06:01 600 mg Q12H RENARD Administration Atorvastatin Calcium 20 mg 05/25/19 22:00 05/25/19 21:37 Lipitor - PO 20 mg HS RENARD Administration Sodium Chloride 1,000 mls @ 75 mls/hr 05/25/19 02:10 05/26/19 02:00 Normal Saline - IV Not Given ASDIR RENARD Metoprolol Tartrate 100 mg 05/25/19 10:00 05/26/19 11:00 Lopressor - PO 100 mg BID RENARD Administration Impression 1. ADAM 2. AAA s/p repair 3. BPH 4. CAD 5. 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
[2019-05-26] MEDS: ATORVASTATIN CA 20 MG TABLET (FP) PO SCH (21:24)
[2019-05-27] MEDS: SODIUM CHLORIDE 1,000 ML IV SCH (05:52)
[2019-05-27 06:19] LABS: BASO % 0.7 % (0-2.0); EOS % 2.1 % (0-4.5); HEMATOCRIT 24.7 % (35.4-49); HEMOGLOBIN 8.3 GM/dL (11.7-16.9); LYMPH % 12.3 % (8-40); MCH 29.8 pg (25.7-33.7); MCHC 33.5 g/dl (32.0-35.9); MEAN PLT VOLUME 9.3 fl (7.5-11.1); MONO % 9.1 % (3.8-10.2); NEUT % 75.8 % (42.8-82.8); PLATELET COUNT 103 K/MM3 (134-434); RBC 2.78 M/mm3 (4.00-5.60); RDW 16.1 % (11.9-15.9); WHITE BLOOD COUNT 8.2 K/mm3 (4.0-10.0)
[2019-05-27] MEDS: ACETYLCYSTEINE 20% 200MG/ML 4 ML VIAL *FOR ORAL / INH USE ONLY PO SCH (06:32)
[2019-05-27 06:51] LABS: ALBUMIN 2.1 g/dl (3.4-5.0); BILIRUBIN,TOTAL 0.5 mg/dL (0.2-1); BLOOD UREA NITROGEN 45.6 mg/dL (7-18); CALCIUM 7.3 mg/dL (8.5-10.1); CREATININE 2.4 mg/dL (0.55-1.3); POTASSIUM 4.1 mmol/L (3.5-5.1); TOT PROT 5.8 g/dl (6.4-8.2)
--- NOTE | 2019-05-27 10:27 | PN ---
Progress Note (short form) - Note Progress Note: h/o EVAR for 6.5 AAA 07/2015. Pt never followed up with on-going surveillance. CTA performed yesterday, awaiting official interpretation. Vascular Surgery still following Problem List - Problems (1) ADAM (acute kidney injury) Code(s): N17.9 - ACUTE KIDNEY FAILURE, UNSPECIFIED (2) HTN (hypertension) Code(s): I10 - ESSENTIAL (PRIMARY) HYPERTENSION Qualifiers: Hypertension type: essential hypertension Qualified Code(s): I10 - Essential (primary) hypertension (3) Aortic aneurysm, abdominal Code(s): I71.4 - ABDOMINAL AORTIC ANEURYSM, WITHOUT RUPTURE Qualifiers: Presence of rupture: without rupture Qualified Code(s): I71.4 - Abdominal aortic aneurysm, without rupture
--- NOTE | 2019-05-27 10:38 | PN ---
Progress Note, Physician History of Present Illness: RLQ abd and flank pain improving, no further near or true syncope, s/p 2 u pRBC , hemodynamically stable. CTA performed yesterday, awaiting official interpretation. - Current Medication List Current Medications: Active Medications Acetaminophen (Tylenol -) 650 mg PO Q4H PRN PRN Reason: PAIN OR FEVER Last Admin: 05/26/19 11:25 Dose: 650 mg Atorvastatin Calcium (Lipitor -) 20 mg PO HS [facility] Last Admin: 05/26/19 21:24 Dose: 20 mg Sodium Chloride (Normal Saline -) 1,000 mls @ 75 mls/hr IV ASDIR [facility] Last Admin: 05/27/19 05:52 Dose: Not Given Metoprolol Tartrate (Lopressor -) 100 mg PO BID [facility] Last Admin: 05/26/19 21:23 Dose: 100 mg - Objective Vital Signs: Vital Signs Temperature 98.1 F 05/27/19 06:00 Pulse Rate 80 05/27/19 06:00 Respiratory Rate 18 05/27/19 06:00 Blood Pressure 153/68 05/27/19 06:00 O2 Sat by Pulse Oximetry (%) 99 05/26/19 19:02 Constitutional: Yes: No Distress, Calm Neck: Yes: Supple Cardiovascular: Yes: Regular Rate and Rhythm Respiratory: Yes: Regular, Diminished Gastrointestinal: Yes: Normal Bowel Sounds, Soft Edema: No Labs: CBC, BMP 05/27/19 05:20 05/27/19 05:20 INR, PTT INR 1.04 (0.83-1.09) 05/24/19 15:09 Problem List - Problems (1) ADAM (acute kidney injury) Code(s): N17.9 - ACUTE KIDNEY FAILURE, UNSPECIFIED (2) HTN (hypertension) Code(s): I10 - ESSENTIAL (PRIMARY) HYPERTENSION Qualifiers: Hypertension type: essential hypertension Qualified Code(s): I10 - Essential (primary) hypertension (3) Aortic aneurysm, abdominal Code(s): I71.4 - ABDOMINAL AORTIC ANEURYSM, WITHOUT RUPTURE Qualifiers: Presence of rupture: without rupture Qualified Code(s): I71.4 - Abdominal aortic aneurysm, without rupture (4) CAD (coronary artery disease) Code(s): I25.10 - ATHSCL HEART DISEASE OF [place] CORONARY ARTERY W/O ANG PCTRS Qualifiers: Coronary Disease-Associated Artery/Lesion type: [place] artery [place] vs. transplanted heart: [place] heart Associated angina: without angina Qualified Code(s): I25.10 - Atherosclerotic heart disease of [place] coronary artery without angina pectoris (5) Hyperlipidemia Code(s): E78.5 - HYPERLIPIDEMIA, UNSPECIFIED (6) Traumatic perinephric hematoma of right kidney Code(s): S37.091A - OTHER INJURY OF RIGHT KIDNEY, INITIAL ENCOUNTER Qualifiers: Encounter type: subsequent encounter Qualified Code(s): S37.091D - Other injury of right kidney, subsequent encounter (7) S/P drug eluting coronary stent placement Code(s): Z95.5 - PRESENCE OF CORONARY ANGIOPLASTY IMPLANT AND GRAFT Assessment/Plan 11/20/2018 Echo: Normal LV size with mod LVH, normal LV systolic fxn, grade I diastolic dysfunction, normal atrial sizes, mild TR RVSP 19 mmHg, mild OK, unchanged from 02/20/2017 03/04/2017 Lexiscan Myoview: Moderate size inferior, inferobasal infarct LVEF 77 % 1. Syncope due to high vagal tone referable to pain and hypovolemia due to blood loss/hematoma 2. CAD s/p MD s/p KAVYA RCA 3. Diastolic dysfunction 4. Acute on CKD due to hypovolemia, blood loss and right perinephric hematoma 5. Right perinephric hematoma 6. 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 PAD 8. Hyperlipidemia P:1. Hold losartan and HCTZ pending renal recovery, IVF with f/u renal fxn and electrolytes 2. CTA performed, awaiting official interpretation, monitor renal fxn as pt is at high risk for FRANCISCO 3. Hold ASA and Pletal pending hemostasis, trend Hgb and transfuse for Hgb<8.0 4. Continue Lopressor 100 bid and Lipitor 20 qhs as hemodynamics tolerate
[2019-05-27] MEDS: METOPROLOL TARTRATE 50 MG TABLET (FP) PO SCH ×2 (11:00→21:07)
--- NOTE | 2019-05-27 11:05 | PN ---
Progress Note (short form) - Note Progress Note: has pain in right side of abdomen when palpated had CTA aorta yesterday evening Vital Signs - 24 hr 05/26/19 05/26/19 05/26/19 14:00 18:00 19:02 Temperature 98.4 F Pulse Rate 58 L 70 70 Respiratory 18 22 H 18 Rate Blood Pressure 114/56 L 146/71 163/90 O2 Sat by Pulse 99 Oximetry (%) 05/26/19 05/27/19 05/27/19 22:00 00:11 02:00 Temperature 98.2 F 98.6 F Pulse Rate 66 60 58 L Respiratory 18 18 21 H Rate Blood Pressure 128/70 141/68 148/63 O2 Sat by Pulse Oximetry (%) 05/27/19 05/27/19 04:00 06:00 Temperature 98.1 F Pulse Rate 60 80 Respiratory 20 18 Rate Blood Pressure 136/69 153/68 O2 Sat by Pulse Oximetry (%) Current Medications Generic Name Dose Route Start Last Admin Trade Name Freq PRN Reason Stop Dose Admin Acetaminophen 650 mg 05/26/19 11:08 05/26/19 11:25 Tylenol - PO 650 mg Q4H PRN Administration PAIN OR FEVER Atorvastatin Calcium 20 mg 05/25/19 22:00 05/26/19 21:24 Lipitor - PO 20 mg HS RENARD Administration Sodium Chloride 1,000 mls @ 75 mls/hr 05/25/19 02:10 05/27/19 05:52 Normal Saline - IV Not Given ASDIR RENARD Metoprolol Tartrate 100 mg 05/25/19 10:00 05/26/19 21:23 Lopressor - PO 100 mg BID RENARD Administration Laboratory Results - last 24 hr 05/27/19 05/27/19 05:20 05:20 WBC 8.2 RBC 2.78 L Hgb 8.3 L Hct 24.7 L MCV 89.0 MCH 29.8 MCHC 33.5 RDW 16.1 H Plt Count 103 L MPV 9.3 Absolute Neuts (auto) 6.2 Neutrophils % 75.8 Lymphocytes % 12.3 Monocytes % 9.1 Eosinophils % 2.1 D Basophils % 0.7 Nucleated RBC % 0 Sodium 141 Potassium 4.1 Chloride 109 H Carbon Dioxide 26 Anion Gap 6 L BUN 45.6 H Creatinine 2.4 H Est GFR (CKD-EPI)AfAm 26.90 Est GFR (CKD-EPI)NonAf 23.21 Random Glucose 81 Calcium 7.3 L Total Bilirubin 0.5 AST 25 ALT 12 L Alkaline Phosphatase 74 Total Protein 5.8 L Albumin 2.1 L S1 S2 RRR Lungs clear Abd- soft, distended, tender right flank' Ext-- no edema PLAN CTA aorta done-- pending official read renal function stable monitor CBC Urology eval - perinephric hematoma pt was on ASA-- hold for now prognosis guarded Problem List - Problems (1) HTN (hypertension) Code(s): I10 - ESSENTIAL (PRIMARY) HYPERTENSION Qualifiers: Hypertension type: essential hypertension Qualified Code(s): I10 - Essential (primary) hypertension (2) ADAM (acute kidney injury) Code(s): N17.9 - ACUTE KIDNEY FAILURE, UNSPECIFIED (3) Aortic aneurysm, abdominal Code(s): I71.4 - ABDOMINAL AORTIC ANEURYSM, WITHOUT RUPTURE Qualifiers: Presence of rupture: without rupture Qualified Code(s): I71.4 - Abdominal aortic aneurysm, without rupture (4) CAD (coronary artery disease) Code(s): I25.10 - ATHSCL HEART DISEASE OF [place] CORONARY ARTERY W/O ANG PCTRS Qualifiers: Coronary Disease-Associated Artery/Lesion type: [place] artery [place] vs. transplanted heart: [place] heart Associated angina: without angina Qualified Code(s): I25.10 - Atherosclerotic heart disease of [place] coronary artery without angina pectoris
--- NOTE | 2019-05-27 12:54 | CON.GU ---
Consult Consult Specialty:: Urology Reason for Consultation:: Renal hematoma - History of Present Illness Chief Complaint: Renal hematoma History of Present Illness: 88 yo male w hx bph and localized bladder tumor found to have right perinephric hematoma - Past Medical History Cardio/Vascular: Yes: CAD (s/p stents x2 - 7 years ago), HTN, Hyperlipdemia, [place] , Other (LV dysfunction, carotid stenosis) Renal/: Yes: Renal Inusuff Musculoskeletal: Yes: Other (Lumbosacral disc disease) Additional Medical History: PAD, carotid stenosis - Past Surgical History Past Surgical History: Yes: Stent - Alcohol/Substance Use Hx Alcohol Use: No - Smoking History Smoking history: Former smoker Have you smoked in the past 12 months: No If you are a former smoker, when did you quit?: 2000 - Social History ADL: Independent History of Recent Travel: No Home Medications - Allergies Allergies/Adverse Reactions: Allergies Allergy/AdvReac Type Severity Reaction Status Date / Time No Known Allergies Allergy Verified 05/24/19 14:18 - Home Medications Home Medications: Ambulatory Orders Cilostazol 100 mg PO BID tablet 08/03/14 Simvastatin 40 mg PO DAILY tablet 08/03/14 Metoprolol Tartrate 100 mg PO BID 08/01/15 Losartan/Hydrochlorothiazide [Losartan-Hctz 100-25 mg Tab] 1 each PO DAILY 03/14 Aspirin [ASA -] 81 mg PO DAILY 05/24/19 Physical Exam- Vital Signs: Vital Signs Temperature 98.4 F 05/27/19 10:00 Pulse Rate 60 05/27/19 10:00 Respiratory Rate 22 H 05/27/19 10:00 Blood Pressure 168/74 05/27/19 10:00 O2 Sat by Pulse Oximetry (%) 99 05/27/19 09:00 Labs: CBC, BMP 05/27/19 05:20 05/27/19 05:20 Problem List - Problems (1) Hematuria Assessment/Plan: right perinephric hematoma likely secondary to trauma vs spontaneous bleed Prior stenting procedure unliely cause Would follow w serial imaging unable to visualize recent angio however hematoma appears to be contained follow hct cr 2.4 Code(s): R31.9 - HEMATURIA, UNSPECIFIED
--- NOTE | 2019-05-27 13:59 | PN ---
Progress Note, Physician History of Present Illness: Pt seen and examined at bedside. He is awake and alert. He had the ct angio yesterday. - Current Medication List Current Medications: Active Medications Acetaminophen (Tylenol -) 650 mg PO Q4H PRN PRN Reason: PAIN OR FEVER Last Admin: 05/26/19 11:25 Dose: 650 mg Atorvastatin Calcium (Lipitor -) 20 mg PO HS [facility] Last Admin: 05/26/19 21:24 Dose: 20 mg Sodium Chloride (Normal Saline -) 1,000 mls @ 75 mls/hr IV ASDIR [facility] Last Admin: 05/27/19 05:52 Dose: Not Given Metoprolol Tartrate (Lopressor -) 100 mg PO BID [facility] Last Admin: 05/27/19 11:00 Dose: 100 mg - Objective Vital Signs: Vital Signs Temperature 98.4 F 05/27/19 10:00 Pulse Rate 60 05/27/19 10:00 Respiratory Rate 22 H 05/27/19 10:00 Blood Pressure 168/74 05/27/19 10:00 O2 Sat by Pulse Oximetry (%) 99 05/27/19 09:00 Constitutional: Yes: Calm Eyes: Yes: Conjunctiva Clear HENT: Yes: Atraumatic Neck: Yes: Supple Cardiovascular: Yes: S1, S2 Respiratory: Yes: CTA Bilaterally Gastrointestinal: Yes: Soft Genitourinary: Yes: WNL Musculoskeletal: Yes: WNL Edema: No Neurological: Yes: Oriented Psychiatric: Yes: Oriented Labs: CBC, BMP 05/27/19 05:20 05/27/19 05:20 INR, PTT INR 1.04 (0.83-1.09) 05/24/19 15:09 Problem List - Problems (1) ADAM (acute kidney injury) Code(s): N17.9 - ACUTE KIDNEY FAILURE, UNSPECIFIED (2) Aortic aneurysm, abdominal Code(s): I71.4 - ABDOMINAL AORTIC ANEURYSM, WITHOUT RUPTURE Qualifiers: Presence of rupture: without rupture Qualified Code(s): I71.4 - Abdominal aortic aneurysm, without rupture Assessment/Plan Current Medications Generic Name Dose Route Start Last Admin Trade Name Freq PRN Reason Stop Dose Admin Acetaminophen 650 mg 05/26/19 11:08 05/26/19 11:25 Tylenol - PO 650 mg Q4H PRN Administration PAIN OR FEVER Atorvastatin Calcium 20 mg 05/25/19 22:00 05/26/19 21:24 Lipitor - PO 20 mg HS RENARD Administration Sodium Chloride 1,000 mls @ 75 mls/hr 05/25/19 02:10 05/27/19 05:52 Normal Saline - IV Not Given ASDIR RENARD Metoprolol Tartrate 100 mg 05/25/19 10:00 05/27/19 11:00 Lopressor - PO 100 mg BID RENARD Administration Impression 1. ADAM 2. AAA s/p repair 3. BPH 4. CAD 5. 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
[2019-05-27] MEDS: ATORVASTATIN CA 20 MG TABLET (FP) PO SCH (21:07)
[2019-05-28 06:11] LABS: HEMATOCRIT 24.9 % (35.4-49); HEMOGLOBIN 8.4 GM/dL (11.7-16.9); MCH 29.9 pg (25.7-33.7); MCHC 33.6 g/dl (32.0-35.9); MEAN CELL VOLUME 88.8 fl (80-96); MEAN PLT VOLUME 9.2 fl (7.5-11.1); PLATELET COUNT 121 K/MM3 (134-434); RDW 16.2 % (11.9-15.9); WHITE BLOOD COUNT 8.2 K/mm3 (4.0-10.0)
[2019-05-28 06:43] LABS: BILIRUBIN,TOTAL 0.7 mg/dL (0.2-1); BLOOD UREA NITROGEN 38.5 mg/dL (7-18); CALCIUM 7.4 mg/dL (8.5-10.1); POTASSIUM 4.4 mmol/L (3.5-5.1); TOT PROT 5.8 g/dl (6.4-8.2)
[2019-05-28] MEDS: METOPROLOL TARTRATE 50 MG TABLET (FP) PO SCH ×2 (09:20→21:49)
--- NOTE | 2019-05-28 09:26 | PN ---
Progress Note, Physician History of Present Illness: RLQ abd and flank pain improving, no further near or true syncope, s/p 2 u pRBC , hemodynamically stable. CTA shows no endoleak, right effusion, stable right perinephric hematoma. - Current Medication List Current Medications: Active Medications Acetaminophen (Tylenol -) 650 mg PO Q4H PRN PRN Reason: PAIN OR FEVER Last Admin: 05/26/19 11:25 Dose: 650 mg Atorvastatin Calcium (Lipitor -) 20 mg PO HS [facility]PL[facility] Last Admin: 05/27/19 21:07 Dose: 20 mg Sodium Chloride (Normal Saline -) 1,000 mls @ 75 mls/hr IV ASDIR [facility]PL[facility] Last Admin: 05/27/19 05:52 Dose: Not Given Metoprolol Tartrate (Lopressor -) 100 mg PO BID [facility] Last Admin: 05/28/19 09:20 Dose: 100 mg - Objective Vital Signs: Vital Signs Temperature 98.3 F 05/28/19 06:18 Pulse Rate 65 05/28/19 07:20 Respiratory Rate 23 H 05/28/19 07:20 Blood Pressure 167/67 05/28/19 07:20 O2 Sat by Pulse Oximetry (%) 93 L 05/28/19 07:20 Constitutional: Yes: No Distress, Calm Neck: Yes: Supple Cardiovascular: Yes: Regular Rate and Rhythm Respiratory: Yes: Regular, Diminished Gastrointestinal: Yes: Normal Bowel Sounds, Soft Edema: No Labs: CBC, BMP 05/28/19 05:35 05/28/19 05:35 INR, PTT INR 1.04 (0.83-1.09) 05/24/19 15:09 Problem List - Problems (1) ADAM (acute kidney injury) Code(s): N17.9 - ACUTE KIDNEY FAILURE, UNSPECIFIED (2) HTN (hypertension) Code(s): I10 - ESSENTIAL (PRIMARY) HYPERTENSION Qualifiers: Hypertension type: essential hypertension Qualified Code(s): I10 - Essential (primary) hypertension (3) Aortic aneurysm, abdominal Code(s): I71.4 - ABDOMINAL AORTIC ANEURYSM, WITHOUT RUPTURE Qualifiers: Presence of rupture: without rupture Qualified Code(s): I71.4 - Abdominal aortic aneurysm, without rupture (4) CAD (coronary artery disease) Code(s): I25.10 - ATHSCL HEART DISEASE OF [place] CORONARY ARTERY W/O ANG PCTRS Qualifiers: Coronary Disease-Associated Artery/Lesion type: [place] artery [place] vs. transplanted heart: [place] heart Associated angina: without angina Qualified Code(s): I25.10 - Atherosclerotic heart disease of [place] coronary artery without angina pectoris (5) Hyperlipidemia Code(s): E78.5 - HYPERLIPIDEMIA, UNSPECIFIED (6) Traumatic perinephric hematoma of right kidney Code(s): S37.091A - OTHER INJURY OF RIGHT KIDNEY, INITIAL ENCOUNTER Qualifiers: Encounter type: subsequent encounter Qualified Code(s): S37.091D - Other injury of right kidney, subsequent encounter (7) S/P drug eluting coronary stent placement Code(s): Z95.5 - PRESENCE OF CORONARY ANGIOPLASTY IMPLANT AND GRAFT Assessment/Plan 11/20/2018 Echo: Normal LV size with mod LVH, normal LV systolic fxn, grade I diastolic dysfunction, normal atrial sizes, mild TR RVSP 19 mmHg, mild MD, unchanged from 02/20/2017 05/26/2019 Abd/pelvic CTA: EVAR w/o endoleaks, mod right effusion, stable right perinephric hematoma 03/04/2017 Lexiscan Myoview: Moderate size inferior, inferobasal infarct LVEF 77 % 1. Syncope due to high vagal tone referable to pain and hypovolemia due to blood loss/hematoma 2. CAD s/p [place] s/p KAVYA RCA 3. Diastolic dysfunction 4. Acute on CKD due to hypovolemia, blood loss and right perinephric hematoma improving 5. Right perinephric hematoma 6. 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 PAD 8. Hyperlipidemia P:1. Hold losartan and HCTZ pending renal recovery, IVF with f/u renal fxn and electrolytes 2. Monitor renal fxn as pt is at high risk for FRANCISCO post CTA 3. Hold ASA and Pletal pending hemostasis, trend Hgb and transfuse for Hgb<8.0 4. Continue Lopressor 100 bid and Lipitor 20 qhs, may add Procardia XL as BP warrants
[2019-05-28] MEDS ORDERED: DEXTROSE 5%-0.45% SALINE 1,000 ML IV SCH ×2 (11:00→12:15)
--- NOTE | 2019-05-28 11:04 | PN ---
Progress Note (short form) - Note Progress Note: pt seen/ examined chart reviewed awake/ comfortable denies pain Vital Signs Temp 98.3 F 05/28/19 06:18 Pulse 65 05/28/19 07:20 Resp 23 H 05/28/19 07:20 BP 167/67 05/28/19 07:20 Pulse Ox 93 L 05/28/19 07:20 Intake & Output 05/27/19 05/27/19 05/28/19 11:59 23:59 11:59 Intake Total 900 900 Output Total 1100 Balance 900 -200 Weight 160 lb 1.6 oz 160 lb 6.4 oz Intake: IV 900 900 Normal Saline - 1,000 ml 900 900 @ 75 mls/hr IV ASDIR [facility] Rx#:[id number] Output: Urine 1100 Void 1100 Other: Voiding Method Urinal Urinal # Unmeasured Voids Void 2 1 2 Bowel Movement No No Weight Measurement Method Built in Bedscale Built in Bedscale Active Medications Acetaminophen (Tylenol -) 650 mg PO Q4H PRN PRN Reason: PAIN OR FEVER Last Admin: 05/26/19 11:25 Dose: 650 mg Amlodipine Besylate (Norvasc -) 5 mg PO DAILY [facility] Atorvastatin Calcium (Lipitor -) 20 mg PO HS [facility] Last Admin: 05/27/19 21:07 Dose: 20 mg Dextrose/Sodium Chloride (D5-1/2ns -) 1,000 mls @ 83 mls/hr IV ASDIR [facility] Metoprolol Tartrate (Lopressor -) 100 mg PO BID [facility] Last Admin: 05/28/19 09:20 Dose: 100 mg CBC, BMP 05/28/19 05:35 05/28/19 05:35 Microbiology 05/25/19 11:40 Blood Culture - Preliminary Blood - Peripheral Venous NO GROWTH OBTAINED AFTER 48 HOURS, INCUBATION TO CONTINUE FOR 3 DAYS. 05/25/19 11:30 Blood Culture - Preliminary Blood - Peripheral Venous NO GROWTH OBTAINED AFTER 48 HOURS, INCUBATION TO CONTINUE FOR 3 DAYS. cxr -- noted Physical Exam Awake/ comfortable S1 S2 RRR Lungs clear Abd- soft, distended, bs + Ext-- no edema PLAN Monitor closely BP running high and arf change fluids-- 1/2 NS add amlodipine D dimer - elevated cxr-ve u/s - legs -- r/o dvt Likely inflammatory will consult pulmonary will follow Discussed with Nursing staff also Problem List - Problems (1) HTN (hypertension) Code(s): I10 - ESSENTIAL (PRIMARY) HYPERTENSION Qualifiers: Hypertension type: essential hypertension Qualified Code(s): I10 - Essential (primary) hypertension (2) ADAM (acute kidney injury) Code(s): N17.9 - ACUTE KIDNEY FAILURE, UNSPECIFIED (3) Aortic aneurysm, abdominal Code(s): I71.4 - ABDOMINAL AORTIC ANEURYSM, WITHOUT RUPTURE Qualifiers: Presence of rupture: without rupture Qualified Code(s): I71.4 - Abdominal aortic aneurysm, without rupture (4) CAD (coronary artery disease) Code(s): I25.10 - ATHSCL HEART DISEASE OF [place] CORONARY ARTERY W/O ANG PCTRS Qualifiers: Coronary Disease-Associated Artery/Lesion type: [place] artery [place] vs. transplanted heart: [place] heart Associated angina: without angina Qualified Code(s): I25.10 - Atherosclerotic heart disease of [place] coronary artery without angina pectoris
[2019-05-28] MEDS: amLODIPine BESYLATE 5 MG TABLET (FP) PO SCH (11:28)
--- NOTE | 2019-05-28 12:14 | PN ---
Progress Note, Physician History of Present Illness: Pt seen and examined at bedside. He is awake and alert. he denies shortness of breath. - Current Medication List Current Medications: Active Medications Acetaminophen (Tylenol -) 650 mg PO Q4H PRN PRN Reason: PAIN OR FEVER Last Admin: 05/26/19 11:25 Dose: 650 mg Amlodipine Besylate (Norvasc -) 5 mg PO DAILY [facility] Last Admin: 05/28/19 11:28 Dose: 5 mg Atorvastatin Calcium (Lipitor -) 20 mg PO HS [facility] Last Admin: 05/27/19 21:07 Dose: 20 mg Dextrose/Sodium Chloride (D5-1/2ns -) 1,000 mls @ 83 mls/hr IV ASDIR [facility] Last Admin: 05/28/19 11:28 Dose: 83 mls/hr Metoprolol Tartrate (Lopressor -) 100 mg PO BID [facility] Last Admin: 05/28/19 09:20 Dose: 100 mg - Objective Vital Signs: Vital Signs Temperature 98.3 F 05/28/19 06:18 Pulse Rate 70 05/28/19 11:29 Respiratory Rate 22 H 05/28/19 11:29 Blood Pressure 173/79 H 05/28/19 11:29 O2 Sat by Pulse Oximetry (%) 93 L 05/28/19 07:20 Constitutional: Yes: Calm Eyes: Yes: Conjunctiva Clear HENT: Yes: Atraumatic Neck: Yes: Supple Cardiovascular: Yes: S1, S2 Respiratory: Yes: CTA Bilaterally Gastrointestinal: Yes: Soft Genitourinary: Yes: WNL Musculoskeletal: Yes: WNL Edema: No Neurological: Yes: Oriented Psychiatric: Yes: Oriented Labs: CBC, BMP 05/28/19 05:35 05/28/19 05:35 INR, PTT INR 1.04 (0.83-1.09) 05/24/19 15:09 Problem List - Problems (1) ADAM (acute kidney injury) Code(s): N17.9 - ACUTE KIDNEY FAILURE, UNSPECIFIED (2) Aortic aneurysm, abdominal Code(s): I71.4 - ABDOMINAL AORTIC ANEURYSM, WITHOUT RUPTURE Qualifiers: Presence of rupture: without rupture Qualified Code(s): I71.4 - Abdominal aortic aneurysm, without rupture Assessment/Plan Current Medications Generic Name Dose Route Start Last Admin Trade Name Freq PRN Reason Stop Dose Admin Acetaminophen 650 mg 05/26/19 11:08 05/26/19 11:25 Tylenol - PO 650 mg Q4H PRN Administration PAIN OR FEVER Amlodipine Besylate 5 mg 05/28/19 11:00 05/28/19 11:28 Norvasc - PO 5 mg DAILY RENARD Administration Atorvastatin Calcium 20 mg 05/25/19 22:00 05/27/19 21:07 Lipitor - PO 20 mg HS RENARD Administration Dextrose/Sodium Chloride 1,000 mls @ 83 mls/hr 05/28/19 11:00 05/28/19 11:28 D5-1/2ns - IV 83 mls/hr ASDIR RENARD Administration Metoprolol Tartrate 100 mg 05/25/19 10:00 05/28/19 09:20 Lopressor - PO 100 mg BID RENARD Administration Impression 1. ADAM 2. AAA s/p repair 3. BPH 4. CAD 5. perinephric hematoma Plan - renal function is improving - vascular follow up - renal hematoma appears stable per report - renal workup in progress - arb and thiazide on hold - decrease rate of fluids and if glucose is stable can stop them
--- NOTE | 2019-05-28 12:53 | CON.PULM ---
Consult Consult Specialty:: PULM/CCM Referred by:: ARSEN Reason for Consultation:: (+) D Dimer - History of Present Illness Chief Complaint: Syncope History of Present Illness: 88 M, coronary artery disease, s/p AMI, S/P PCI: KAVYA RCA 02/21/2008, abdominal aortic aneurysm s/p EVAR 08/03/2015, PAD, CKD and BPH, and lumbar radiculopathy. Admitted via the ER after a syncopal event. Patient reports he was at home, shaved, and was doing chores around the house when he developed acute onset of severe right-sided lower abdominal pain and near syncope prior to this event. He was subseqquently found on the floor by his . He denies chest pain, shortness of breath, or palpitations. No recent travel history or sick contacts. No fever or chills. No personal or family history of VTE. CT scan head: no acute intracranial findings. CT scan of abdomen and pelvis: arge right perinephritic hematoma Renal US: no evidence of hydronephrosis and bilateral renal cysts. - History Source History Provided By: Patient Limitations to Obtaining History: No Limitations - Past Medical History Cardio/Vascular: Yes: CAD (s/p stents x2 - 7 years ago), HTN, Hyperlipdemia, NM , Other (LV dysfunction, carotid stenosis) Renal/: Yes: Renal Inusuff Musculoskeletal: Yes: Other (Lumbosacral disc disease) Additional Medical History: PAD, carotid stenosis - Past Surgical History Past Surgical History: Yes: Stent - Alcohol/Substance Use Hx Alcohol Use: No - Smoking History Smoking history: Former smoker Have you smoked in the past 12 months: No If you are a former smoker, when did you quit?: 2000 - Social History ADL: Independent History of Recent Travel: No Home Medications - Allergies Allergies/Adverse Reactions: Allergies Allergy/AdvReac Type Severity Reaction Status Date / Time No Known Allergies Allergy Verified 05/24/19 14:18 - Home Medications Home Medications: Ambulatory Orders Cilostazol 100 mg PO BID tablet 08/03/14 Simvastatin 40 mg PO DAILY tablet 08/03/14 Metoprolol Tartrate 100 mg PO BID 08/01/15 Losartan/Hydrochlorothiazide [Losartan-Hctz 100-25 mg Tab] 1 each PO DAILY 03/14 Aspirin [ASA -] 81 mg PO DAILY 05/24/19 Review of Systems - Review of Systems Constitutional: reports: Malaise. denies: Chills, Fever, Unintentional Wgt. Loss Eyes: reports: No Symptoms HENT: reports: No Symptoms Neck: reports: No Symptoms Cardiovascular: denies: Chest Pain, Edema, Palpitations, Shortness of Breath Respiratory: denies: Cough, Hemoptysis, Orthopnea, PND, SOB, SOB on Exertion, Wheezing Gastrointestinal: reports: Abdominal Pain. denies: Constipation, Diarrhea, Dysphagia, Indigestion, Melena, Nausea, Rectal Bleeding, Vomiting, Vomiting Blood Genitourinary: reports: No Symptoms Breasts: reports: No Symptoms Reported Musculoskeletal: reports: No Symptoms Integumentary: reports: No Symptoms Neurological: reports: No Symptoms Endocrine: reports: No Symptoms Hematology/Lymphatic: reports: No Symptoms Psychiatric: reports: No Symptoms Physical Exam Vital Sings: Vital Signs Temperature 98.3 F 05/28/19 06:18 Pulse Rate 70 05/28/19 11:29 Respiratory Rate 22 H 05/28/19 11:29 Blood Pressure 173/79 H 05/28/19 11:29 O2 Sat by Pulse Oximetry (%) 93 L 05/28/19 07:20 Constitutional: Yes: Well Nourished, No Distress, Calm Eyes: Yes: Conjunctiva Clear, EOM Intact HENT: Yes: Atraumatic, Normocephalic Neck: Yes: Supple, Trachea Midline Cardiovascular: Yes: Regular Rate and Rhythm Respiratory: Yes: Diminished. No: Accessory Muscle Use, Rales, Rhonchi, SOB, SOB on Exertion, Stridor, Tachypnea, Wheezes ...Inspection: Yes: WNL ...Clubbing: No Gastrointestinal: Yes: Normal Bowel Sounds, Soft Musculoskeletal: Yes: WNL Extremities: Yes: WNL Edema: No Peripheral Pulses WNL: Yes Integumentary: Yes: WNL Neurological: Yes: WNL, Alert, Oriented ...Motor Strength: WNL Psychiatric: Yes: WNL, Alert, Oriented Labs: CBC, BMP 05/28/19 05:35 05/28/19 05:35 Imaging - Results Chest X-ray: Report Reviewed, Image Reviewed Problem List - Problems (1) ADAM (acute kidney injury) Code(s): N17.9 - ACUTE KIDNEY FAILURE, UNSPECIFIED (2) HTN (hypertension) Code(s): I10 - ESSENTIAL (PRIMARY) HYPERTENSION Qualifiers: Hypertension type: essential hypertension Qualified Code(s): I10 - Essential (primary) hypertension (3) Hyperlipidemia Code(s): E78.5 - HYPERLIPIDEMIA, UNSPECIFIED (4) S/P drug eluting coronary stent placement Code(s): Z95.5 - PRESENCE OF CORONARY ANGIOPLASTY IMPLANT AND GRAFT (5) Traumatic perinephric hematoma of right kidney Code(s): S37.091A - OTHER INJURY OF RIGHT KIDNEY, INITIAL ENCOUNTER Qualifiers: Encounter type: subsequent encounter Qualified Code(s): S37.091D - Other injury of right kidney, subsequent encounter (6) Aortic aneurysm, abdominal Code(s): I71.4 - ABDOMINAL AORTIC ANEURYSM, WITHOUT RUPTURE Qualifiers: Presence of rupture: without rupture Qualified Code(s): I71.4 - Abdominal aortic aneurysm, without rupture (7) CAD (coronary artery disease) Code(s): I25.10 - ATHSCL HEART DISEASE OF [place] CORONARY ARTERY W/O ANG PCTRS Qualifiers: Coronary Disease-Associated Artery/Lesion type: [place] artery [place] vs. transplanted heart: [place] heart Associated angina: without angina Qualified Code(s): I25.10 - Atherosclerotic heart disease of [place] coronary artery without angina pectoris (8) Hematuria Code(s): R31.9 - HEMATURIA, UNSPECIFIED Assessment/Plan IMP: Do not suspect VTE. Elevated D-dimer most likely due to Large Right sai- nephric hematoma PLAN: US of the LE: if negative would not pursue further testing such as a V/Q scan. O2 as needed Normal transfusion thresholds Agree to hold on empiric AC due to acute blood loss due to the perinephric hematoma. IVF Follow Renal function Will follow Thank you. Dr Matthews
[2019-05-28 18:09] LABS: ATYPICAL pANCA <1:20 titer (Neg:<1:20); C-ANCA <1:20 titer (Neg:<1:20); P-ANCA <1:20 titer (Neg:<1:20)
[2019-05-28] MEDS: ATORVASTATIN CA 20 MG TABLET (FP) PO SCH (21:48)
[2019-05-29 06:48] LABS: BASO % 0.7 % (0-2.0); EOS % 3.1 % (0-4.5); HEMATOCRIT 27.5 % (35.4-49); HEMOGLOBIN 9.1 GM/dL (11.7-16.9); LYMPH % 10.7 % (8-40); MCH 29.6 pg (25.7-33.7); MEAN CELL VOLUME 89.6 fl (80-96); MEAN PLT VOLUME 9.1 fl (7.5-11.1); MONO % 9.6 % (3.8-10.2); NEUT % 75.9 % (42.8-82.8); PLATELET COUNT 135 K/MM3 (134-434); RBC 3.06 M/mm3 (4.00-5.60); RDW 16.3 % (11.9-15.9); WHITE BLOOD COUNT 8.7 K/mm3 (4.0-10.0)
[2019-05-29 07:31] LABS: ALBUMIN 2.1 g/dl (3.4-5.0); BILIRUBIN,TOTAL 0.9 mg/dL (0.2-1); BLOOD UREA NITROGEN 32.9 mg/dL (7-18); CALCIUM 7.8 mg/dL (8.5-10.1); CREATININE 1.8 mg/dL (0.55-1.3); POTASSIUM 3.8 mmol/L (3.5-5.1); TOT PROT 5.9 g/dl (6.4-8.2)
--- NOTE | 2019-05-29 09:55 | PN ---
Progress Note, Physician - Current Medication List Current Medications: Active Medications Acetaminophen (Tylenol -) 650 mg PO Q4H PRN PRN Reason: PAIN OR FEVER Last Admin: 05/26/19 11:25 Dose: 650 mg Amlodipine Besylate (Norvasc -) 5 mg PO DAILY [facility] Last Admin: 05/28/19 11:28 Dose: 5 mg Atorvastatin Calcium (Lipitor -) 20 mg PO HS [facility] Last Admin: 05/28/19 21:48 Dose: 20 mg Dextrose/Sodium Chloride (D5-1/2ns -) 1,000 mls @ 40 mls/hr IV ASDIR [facility] Last Admin: 05/28/19 21:46 Dose: Not Given Metoprolol Tartrate (Lopressor -) 100 mg PO BID [facility] Last Admin: 05/28/19 21:49 Dose: 100 mg - Objective Vital Signs: Vital Signs Temperature 98.5 F 05/29/19 06:57 Pulse Rate 63 05/29/19 06:57 Respiratory Rate 20 05/29/19 06:57 Blood Pressure 174/82 H 05/29/19 06:57 O2 Sat by Pulse Oximetry (%) 95 05/29/19 07:48 Eyes: Yes: WNL, Conjunctiva Clear, EOM Intact HENT: Yes: WNL, Atraumatic, Normocephalic Neck: Yes: WNL, Supple, Trachea Midline Cardiovascular: Yes: WNL, Regular Rate and Rhythm Respiratory: Yes: WNL, Regular, CTA Bilaterally Gastrointestinal: Yes: WNL, Normal Bowel Sounds Genitourinary: Yes: WNL Musculoskeletal: Yes: WNL Extremities: Yes: WNL Edema: No Integumentary: Yes: WNL Neurological: Yes: WNL, Alert, Oriented ...Motor Strength: WNL Psychiatric: Yes: WNL Labs: CBC, BMP 05/29/19 05:45 05/29/19 05:40 INR, PTT INR 1.04 (0.83-1.09) 05/24/19 15:09 Assessment/Plan Assessment/Plan 11/20/2018 Echo: Normal LV size with mod LVH, normal LV systolic fxn, grade I diastolic dysfunction, normal atrial sizes, mild TR RVSP 19 mmHg, mild TX, unchanged from 02/20/2017 05/26/2019 Abd/pelvic CTA: EVAR w/o endoleaks, mod right effusion, stable right perinephric hematoma 03/04/2017 Lexiscan Myoview: Moderate size inferior, inferobasal infarct LVEF 77 % 1. Syncope due to high vagal tone referable to pain and hypovolemia due to blood loss/hematoma 2. CAD s/p [place] s/p KAVYA RCA 3. Diastolic dysfunction 4. Acute on CKD due to hypovolemia, blood loss and right perinephric hematoma improving 5. Right perinephric hematoma 6. 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 PAD 8. Hyperlipidemia P:1. Hold losartan and HCTZ pending renal recovery, IVF with f/u renal fxn and electrolytes 2. Monitor renal fxn as pt is at high risk for FRANCISCO post CTA 3. Hold ASA and Pletal pending hemostasis, trend Hgb and transfuse for Hgb<8.0 4. Continue Lopressor 100 bid and Lipitor 20 qhs, may add Procardia XL as BP warrants coverage for dr. Lyle cc time spent 37 min
[2019-05-29] MEDS: METOPROLOL TARTRATE 50 MG TABLET (FP) PO SCH ×2 (10:00→21:18)
[2019-05-29] MEDS: amLODIPine BESYLATE 5 MG TABLET (FP) PO SCH (10:00)
[2019-05-29] MEDS ORDERED: POLYETHYLENE GLYCOL 3350 119 GM BTL PO PRN (11:38)
--- NOTE | 2019-05-29 11:38 | PN ---
Progress Note (short form) - Note Progress Note: has pain in right side of abdomen when palpated-- better feels well Vital Signs - 24 hr 05/28/19 05/28/19 05/28/19 13:54 16:00 18:00 Temperature 98.0 F Pulse Rate 70 78 74 Respiratory 22 H 17 19 Rate Blood Pressure 152/70 140/84 125/69 O2 Sat by Pulse Oximetry (%) 05/28/19 05/28/19 05/29/19 19:55 20:04 00:06 Temperature 98.3 F Pulse Rate 70 54 L Respiratory 18 18 14 Rate Blood Pressure 130/70 151/66 O2 Sat by Pulse 93 L 93 L Oximetry (%) 05/29/19 05/29/19 05/29/19 02:02 04:17 06:57 Temperature 98.3 F 98.5 F Pulse Rate 55 L 62 63 Respiratory 12 20 20 Rate Blood Pressure 134/55 L 158/98 174/82 H O2 Sat by Pulse Oximetry (%) 05/29/19 07:48 Temperature Pulse Rate Respiratory Rate Blood Pressure O2 Sat by Pulse 95 Oximetry (%) Current Medications Generic Name Dose Route Start Last Admin Trade Name Freq PRN Reason Stop Dose Admin Acetaminophen 650 mg 05/26/19 11:08 05/26/19 11:25 Tylenol - PO 650 mg Q4H PRN Administration PAIN OR FEVER Amlodipine Besylate 5 mg 05/28/19 11:00 05/28/19 11:28 Norvasc - PO 5 mg DAILY RENARD Administration Atorvastatin Calcium 20 mg 05/25/19 22:00 05/28/19 21:48 Lipitor - PO 20 mg HS RENARD Administration Dextrose/Sodium Chloride 1,000 mls @ 40 mls/hr 05/28/19 12:15 05/28/19 21:46 D5-1/2ns - IV Not Given ASDIR RENARD Metoprolol Tartrate 100 mg 05/25/19 10:00 05/28/19 21:49 Lopressor - PO 100 mg BID RENARD Administration Laboratory Results - last 24 hr 05/25/19 05/26/19 05/29/19 16:30 05:22 05:40 WBC RBC Hgb Hct MCV MCH MCHC RDW Plt Count MPV Absolute Neuts (auto) Neutrophils % Lymphocytes % Monocytes % Eosinophils % Basophils % Nucleated RBC % Sodium 142 Potassium 3.8 Chloride 111 H Carbon Dioxide 27 Anion Gap 4 L BUN 32.9 H Creatinine 1.8 H Est GFR (CKD-EPI)AfAm 38.10 Est GFR (CKD-EPI)NonAf 32.87 Random Glucose 101 Calcium 7.8 L Total Bilirubin 0.9 AST 22 ALT 13 Alkaline Phosphatase 82 Total Protein 5.9 L Albumin 2.1 L c-ANCA <1:20 Proteinase 3 (PR3) <3.5 p-ANCA <1:20 Atypical p-ANCA <1:20 Myeloperoxidase Ab <9.0 Blood Type O POSITIVE Antibody Screen Negative Crossmatch See Detail 05/29/19 05:45 WBC 8.7 RBC 3.06 L Hgb 9.1 L Hct 27.5 L MCV 89.6 MCH 29.6 MCHC 33.0 RDW 16.3 H Plt Count 135 MPV 9.1 Absolute Neuts (auto) 6.6 Neutrophils % 75.9 Lymphocytes % 10.7 Monocytes % 9.6 Eosinophils % 3.1 Basophils % 0.7 Nucleated RBC % 0 Sodium Potassium Chloride Carbon Dioxide Anion Gap BUN Creatinine Est GFR (CKD-EPI)AfAm Est GFR (CKD-EPI)NonAf Random Glucose Calcium Total Bilirubin AST ALT Alkaline Phosphatase Total Protein Albumin c-ANCA Proteinase 3 (PR3) p-ANCA Atypical p-ANCA Myeloperoxidase Ab Blood Type Antibody Screen Crossmatch S1 S2 RRR Lungs clear Abd- soft, distended, tender right flank' Ext-- no edema PLAN no endoleak HCT stable renal function better stable for floors OOB Urology eval - perinephric hematoma-- noted pt was on ASA-- hold for now Problem List - Problems (1) HTN (hypertension) Code(s): I10 - ESSENTIAL (PRIMARY) HYPERTENSION Qualifiers: Hypertension type: essential hypertension Qualified Code(s): I10 - Essential (primary) hypertension (2) ADAM (acute kidney injury) Code(s): N17.9 - ACUTE KIDNEY FAILURE, UNSPECIFIED (3) Aortic aneurysm, abdominal Code(s): I71.4 - ABDOMINAL AORTIC ANEURYSM, WITHOUT RUPTURE Qualifiers: Presence of rupture: without rupture Qualified Code(s): I71.4 - Abdominal aortic aneurysm, without rupture (4) CAD (coronary artery disease) Code(s): I25.10 - ATHSCL HEART DISEASE OF [place] CORONARY ARTERY W/O ANG PCTRS Qualifiers: Coronary Disease-Associated Artery/Lesion type: [place] artery [place] vs. transplanted heart: [place] heart Associated angina: without angina Qualified Code(s): I25.10 - Atherosclerotic heart disease of [place] coronary artery without angina pectoris
--- NOTE | 2019-05-29 15:09 | PN ---
Progress Note (short form) - Note Progress Note: covering dr rodriguez 1. ADMA 2. AAA s/p repair 3. BPH 4. CAD 5. perinephric hematoma Current Medications Acetaminophen (Tylenol -) 650 mg PO Q4H PRN PRN Reason: PAIN OR FEVER Last Admin: 05/26/19 11:25 Dose: 650 mg Amlodipine Besylate (Norvasc -) 5 mg PO DAILY [facility] Last Admin: 05/29/19 10:00 Dose: 5 mg Atorvastatin Calcium (Lipitor -) 20 mg PO HS [facility] Last Admin: 05/28/19 21:48 Dose: 20 mg Dextrose/Sodium Chloride (D5-1/2ns -) 1,000 mls @ 40 mls/hr IV ASDIR [facility] Last Admin: 05/28/19 21:46 Dose: Not Given Metoprolol Tartrate (Lopressor -) 100 mg PO BID [facility] Last Admin: 05/29/19 10:00 Dose: 100 mg Polyethylene Glycol (Miralax (For Daily Use) -) 17 gm PO DAILY PRN PRN Reason: CONSTIPATION Last Vital Signs Temp Pulse Resp BP Pulse Ox 98.2 F 74 22 H 150/82 95 05/29/19 10:00 05/29/19 10:00 05/29/19 10:00 05/29/19 10:00 05/29/19 07:48 CBC, BMP 05/29/19 05:45 05/29/19 05:40 follow lab
[2019-05-29] MEDS ORDERED: DEXTROSE 5%-0.45% SALINE 1,000 ML IV SCH (17:31)
[2019-05-29] MEDS ORDERED: ACETAMINOPHEN 325 MG TABLET (FP) PO PRN (17:31)
[2019-05-29] MEDS: POLYETHYLENE GLYCOL 3350 119 GM BTL PO PRN (18:24)
[2019-05-29] MEDS: ATORVASTATIN CA 20 MG TABLET (FP) PO SCH (21:18)
--- NOTE | 2019-05-30 08:23 | PN ---
Progress Note, Physician - Current Medication List Current Medications: Active Medications Acetaminophen (Tylenol -) 650 mg PO Q4H PRN PRN Reason: PAIN OR FEVER Amlodipine Besylate (Norvasc -) 5 mg PO DAILY [facility] Atorvastatin Calcium (Lipitor -) 20 mg PO HS [facility] Last Admin: 05/29/19 21:18 Dose: 20 mg Dextrose/Sodium Chloride (D5-1/2ns -) 1,000 mls @ 40 mls/hr IV ASDIR [facility] Last Admin: 05/29/19 17:59 Dose: 40 mls/hr Metoprolol Tartrate (Lopressor -) 100 mg PO BID [facility] Last Admin: 05/29/19 21:18 Dose: 100 mg Polyethylene Glycol (Miralax (For Daily Use) -) 17 gm PO DAILY PRN PRN Reason: CONSTIPATION Last Admin: 05/29/19 18:24 Dose: 17 gm - Objective Vital Signs: Vital Signs Temperature 99.1 F 05/30/19 06:00 Pulse Rate 75 05/30/19 06:00 Respiratory Rate 20 05/30/19 06:00 Blood Pressure 131/109 H 05/30/19 06:00 O2 Sat by Pulse Oximetry (%) 95 05/29/19 21:00 Eyes: Yes: WNL, Conjunctiva Clear, EOM Intact HENT: Yes: WNL, Atraumatic, Normocephalic Neck: Yes: WNL, Supple, Trachea Midline Cardiovascular: Yes: WNL, Regular Rate and Rhythm Respiratory: Yes: WNL, Regular, CTA Bilaterally Gastrointestinal: Yes: WNL, Normal Bowel Sounds Genitourinary: Yes: WNL Musculoskeletal: Yes: WNL Extremities: Yes: WNL Edema: No Integumentary: Yes: WNL Neurological: Yes: WNL, Alert, Oriented ...Motor Strength: WNL Psychiatric: Yes: WNL Labs: CBC, BMP 05/29/19 05:45 05/29/19 05:40 INR, PTT INR 1.04 (0.83-1.09) 05/24/19 15:09 Assessment/Plan Assessment/Plan 11/20/2018 Echo: Normal LV size with mod LVH, normal LV systolic fxn, grade I diastolic dysfunction, normal atrial sizes, mild TR RVSP 19 mmHg, mild [place], unchanged from 02/20/2017 05/26/2019 Abd/pelvic CTA: EVAR w/o endoleaks, mod right effusion, stable right perinephric hematoma 03/04/2017 Lexiscan Myoview: Moderate size inferior, inferobasal infarct LVEF 77 % 1. Syncope due to high vagal tone referable to pain and hypovolemia due to blood loss/hematoma 2. CAD s/p [place] s/p KAVYA RCA 3. Diastolic dysfunction 4. Acute on CKD due to hypovolemia, blood loss and right perinephric hematoma improving 5. Right perinephric hematoma 6. 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 PAD 8. Hyperlipidemia P:1. Hold losartan and HCTZ pending renal recovery, IVF with f/u renal fxn and electrolytes 2. Monitor renal fxn as pt is at high risk for FRANCISCO post CTA 3. Hold ASA and Pletal pending hemostasis, trend Hgb and transfuse for Hgb<8.0 4. Continue Lopressor 100 bid and Lipitor 20 qhs, may add Procardia XL as BP warrants coverage for dr. Lyle
[2019-05-30] MEDS: amLODIPine BESYLATE 5 MG TABLET (FP) PO SCH (09:06)
[2019-05-30] MEDS: METOPROLOL TARTRATE 50 MG TABLET (FP) PO SCH ×2 (09:06→21:21)
[2019-05-30] MEDS ORDERED: BISACODYL 10 MG SUPP.RECT PR PRN (11:01)
--- NOTE | 2019-05-30 11:02 | PN ---
Progress Note (short form) - Note Progress Note: better no distress Vital Signs - 24 hr 05/29/19 05/29/19 05/29/19 17:30 18:00 21:00 Temperature 99 F Pulse Rate 89 Respiratory 20 20 Rate Blood Pressure 142/71 O2 Sat by Pulse 93 L 95 Oximetry (%) 05/29/19 05/30/19 05/30/19 22:00 02:00 06:00 Temperature 99.7 F H 98.6 F 99.1 F Pulse Rate 99 H 79 75 Respiratory 20 20 20 Rate Blood Pressure 147/94 144/92 131/109 H O2 Sat by Pulse Oximetry (%) 05/30/19 05/30/19 09:00 10:00 Temperature 98.4 F Pulse Rate 67 Respiratory 18 18 Rate Blood Pressure 138/66 O2 Sat by Pulse 94 L Oximetry (%) Current Medications Generic Name Dose Route Start Last Admin Trade Name Freq PRN Reason Stop Dose Admin Acetaminophen 650 mg 05/29/19 17:31 Tylenol - PO Q4H PRN PAIN OR FEVER Amlodipine Besylate 5 mg 05/30/19 10:00 05/30/19 09:06 Norvasc - PO 5 mg DAILY RENARD Administration Atorvastatin Calcium 20 mg 05/29/19 22:00 05/29/19 21:18 Lipitor - PO 20 mg HS RENARD Administration Bisacodyl 10 mg 05/30/19 11:01 Dulcolax Suppository - ME DAILY PRN CONSTIPATION Metoprolol Tartrate 100 mg 05/29/19 22:00 05/30/19 09:06 Lopressor - PO 100 mg BID RENARD Administration Polyethylene Glycol 17 gm 05/29/19 17:31 05/30/19 11:39 Miralax (For Daily Use) - PO 17 gm DAILY PRN Administration CONSTIPATION S1 S2 RRR Lungs clear Abd- soft,NT Ext-- no edema PLAN no endoleak HCT stable ,-check labs in AM renal function better stable for floors OOB Urology eval - perinephric hematoma-- noted pt was on ASA-- hold for now dc iv fluids Problem List - Problems (1) HTN (hypertension) Code(s): I10 - ESSENTIAL (PRIMARY) HYPERTENSION Qualifiers: Hypertension type: essential hypertension Qualified Code(s): I10 - Essential (primary) hypertension (2) ADAM (acute kidney injury) Code(s): N17.9 - ACUTE KIDNEY FAILURE, UNSPECIFIED (3) Aortic aneurysm, abdominal Code(s): I71.4 - ABDOMINAL AORTIC ANEURYSM, WITHOUT RUPTURE Qualifiers: Presence of rupture: without rupture Qualified Code(s): I71.4 - Abdominal aortic aneurysm, without rupture (4) CAD (coronary artery disease) Code(s): I25.10 - ATHSCL HEART DISEASE OF [place] CORONARY ARTERY W/O ANG PCTRS Qualifiers: Coronary Disease-Associated Artery/Lesion type: [place] artery [place] vs. transplanted heart: [place] heart Associated angina: without angina Qualified Code(s): I25.10 - Atherosclerotic heart disease of [place] coronary artery without angina pectoris
[2019-05-30] MEDS: POLYETHYLENE GLYCOL 3350 119 GM BTL PO PRN (11:39)
--- NOTE | 2019-05-30 20:31 | PN ---
Progress Note (short form) - Note Progress Note: covering dr rodriguez 1. ADAM 2. AAA s/p repair 3. BPH 4. CAD 5. perinephric hematoma transfer from ICU Current Medications Acetaminophen (Tylenol -) 650 mg PO Q4H PRN PRN Reason: PAIN OR FEVER Amlodipine Besylate (Norvasc -) 5 mg PO DAILY [facility] Last Admin: 05/30/19 09:06 Dose: 5 mg Atorvastatin Calcium (Lipitor -) 20 mg PO HS [facility] Last Admin: 05/29/19 21:18 Dose: 20 mg Bisacodyl (Dulcolax Suppository -) 10 mg [place] DAILY PRN PRN Reason: CONSTIPATION Last Admin: 05/30/19 15:22 Dose: 10 mg Metoprolol Tartrate (Lopressor -) 100 mg PO BID [facility] Last Admin: 05/30/19 09:06 Dose: 100 mg Polyethylene Glycol (Miralax (For Daily Use) -) 17 gm PO DAILY PRN PRN Reason: CONSTIPATION Last Admin: 05/30/19 11:39 Dose: 17 gm Last Vital Signs Temp Pulse Resp BP Pulse Ox 98.4 F 76 18 133/58 L 94 L 05/30/19 18:00 05/30/19 18:00 05/30/19 18:00 05/30/19 18:00 05/30/19 09:00 alert in nad, pleasant Lungs clear Heart reg Abd soft nontender CBC, BMP 05/29/19 05:45 05/29/19 05:40 ADAM perinephric hematoma constipation follow labs ambulate
[2019-05-30] MEDS: ATORVASTATIN CA 20 MG TABLET (FP) PO SCH (21:21)
[2019-05-31 08:23] LABS: HEMATOCRIT 26.6 % (35.4-49); HEMOGLOBIN 8.8 GM/dL (11.7-16.9); MCH 29.5 pg (25.7-33.7); MCHC 33.2 g/dl (32.0-35.9); MEAN CELL VOLUME 88.8 fl (80-96); MEAN PLT VOLUME 8.7 fl (7.5-11.1); PLATELET COUNT 138 K/MM3 (134-434); RBC 2.99 M/mm3 (4.00-5.60); RDW 17.1 % (11.9-15.9); WHITE BLOOD COUNT 9.3 K/mm3 (4.0-10.0)
[2019-05-31 09:07] LABS: ALBUMIN 1.9 g/dl (3.4-5.0); BILIRUBIN,TOTAL 1.1 mg/dL (0.2-1); BLOOD UREA NITROGEN 32.2 mg/dL (7-18); CALCIUM 8.2 mg/dL (8.5-10.1); CREATININE 1.7 mg/dL (0.55-1.3); POTASSIUM 4.2 mmol/L (3.5-5.1); TOT PROT 5.6 g/dl (6.4-8.2)
--- NOTE | 2019-05-31 10:42 | PN ---
Progress Note, Physician History of Present Illness: RLQ abd and flank pain resolved, no further near or true syncope, s/p 2 u pRBC, Hgb and hemodynamically stable. CTA shows no endoleak, right effusion, stable right perinephric hematoma. - Current Medication List Current Medications: Active Medications Acetaminophen (Tylenol -) 650 mg PO Q4H PRN PRN Reason: PAIN OR FEVER Amlodipine Besylate (Norvasc -) 5 mg PO DAILY [facility] Last Admin: 05/30/19 09:06 Dose: 5 mg Atorvastatin Calcium (Lipitor -) 20 mg PO HS [facility] Last Admin: 05/30/19 21:21 Dose: 20 mg Bisacodyl (Dulcolax Suppository -) 10 mg [place] DAILY PRN PRN Reason: CONSTIPATION Last Admin: 05/30/19 15:22 Dose: 10 mg Metoprolol Tartrate (Lopressor -) 100 mg PO BID [facility] Last Admin: 05/30/19 21:21 Dose: 100 mg Polyethylene Glycol (Miralax (For Daily Use) -) 17 gm PO DAILY PRN PRN Reason: CONSTIPATION Last Admin: 05/30/19 11:39 Dose: 17 gm - Objective Vital Signs: Vital Signs Temperature 98.5 F 05/31/19 08:53 Pulse Rate 68 05/31/19 08:53 Respiratory Rate 20 05/31/19 08:53 Blood Pressure 149/62 05/31/19 08:53 O2 Sat by Pulse Oximetry (%) 94 L 05/30/19 21:00 Constitutional: Yes: No Distress, Calm, Thin Neck: Yes: Supple Cardiovascular: Yes: Regular Rate and Rhythm Respiratory: Yes: Regular, CTA Bilaterally Gastrointestinal: Yes: Normal Bowel Sounds, Soft Edema: No Labs: CBC, BMP 05/31/19 07:56 05/31/19 07:56 INR, PTT INR 1.04 (0.83-1.09) 05/24/19 15:09 Problem List - Problems (1) ADAM (acute kidney injury) Code(s): N17.9 - ACUTE KIDNEY FAILURE, UNSPECIFIED (2) HTN (hypertension) Code(s): I10 - ESSENTIAL (PRIMARY) HYPERTENSION Qualifiers: Hypertension type: essential hypertension Qualified Code(s): I10 - Essential (primary) hypertension (3) Aortic aneurysm, abdominal Code(s): I71.4 - ABDOMINAL AORTIC ANEURYSM, WITHOUT RUPTURE Qualifiers: Presence of rupture: without rupture Qualified Code(s): I71.4 - Abdominal aortic aneurysm, without rupture (4) CAD (coronary artery disease) Code(s): I25.10 - ATHSCL HEART DISEASE OF [place] CORONARY ARTERY W/O ANG PCTRS Qualifiers: Coronary Disease-Associated Artery/Lesion type: [place] artery [place] vs. transplanted heart: [place] heart Associated angina: without angina Qualified Code(s): I25.10 - Atherosclerotic heart disease of [place] coronary artery without angina pectoris (5) Hyperlipidemia Code(s): E78.5 - HYPERLIPIDEMIA, UNSPECIFIED (6) Traumatic perinephric hematoma of right kidney Code(s): S37.091A - OTHER INJURY OF RIGHT KIDNEY, INITIAL ENCOUNTER Qualifiers: Encounter type: subsequent encounter Qualified Code(s): S37.091D - Other injury of right kidney, subsequent encounter (7) S/P drug eluting coronary stent placement Code(s): Z95.5 - PRESENCE OF CORONARY ANGIOPLASTY IMPLANT AND GRAFT Assessment/Plan 11/20/2018 Echo: Normal LV size with mod LVH, normal LV systolic fxn, grade I diastolic dysfunction, normal atrial sizes, mild TR RVSP 19 mmHg, mild [place], unchanged from 02/20/2017 05/26/2019 Abd/pelvic CTA: EVAR w/o endoleaks, mod right effusion, stable right perinephric hematoma 03/04/2017 Lexiscan Myoview: Moderate size inferior, inferobasal infarct LVEF 77 % 1. Syncope due to high vagal tone referable to pain and hypovolemia due to blood loss/hematoma 2. CAD s/p CT s/p KAVYA RCA 3. Diastolic dysfunction 4. Acute on CKD due to hypovolemia, blood loss and right perinephric hematoma improving 5. Right perinephric hematoma 6. 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 PAD 8. Hyperlipidemia P:1. Hold losartan and HCTZ pending renal recovery, oral hydrate with f/u renal fxn and electrolytes 2. Hold ASA and Pletal pending hemostasis, trend Hgb and transfuse for Hgb<8.0 3. Continue Lopressor 100 bid, Norvasc 5 qd and Lipitor 20 qhs as BP warrants
[2019-05-31] MEDS: amLODIPine BESYLATE 5 MG TABLET (FP) PO SCH (10:43)
[2019-05-31] MEDS: METOPROLOL TARTRATE 50 MG TABLET (FP) PO SCH ×2 (10:43→21:46)
--- NOTE | 2019-05-31 13:53 | PN ---
Progress Note (short form) - Note Progress Note: pt seen/ examined comfortable wants to go home no complains denies cp/sob chart is reviewed Vital Signs Temp 98.5 F 05/31/19 08:53 Pulse 68 05/31/19 08:53 Resp 20 05/31/19 09:00 BP 149/62 05/31/19 08:53 Pulse Ox 96 05/31/19 09:00 Intake & Output 05/30/19 05/31/19 05/31/19 23:59 11:59 23:59 Intake Total 1180 0 Balance 1180 0 Intake: IV 180 0 D5-1/2Ns - 1,000 ml @ 40 180 mls/hr IV ASDIR [facility] Rx#: [id number] D5-1/2Ns - 1,000 ml @ 40 0 0 mls/hr IV ASDIR [facility] Rx#: [id number] Oral 1000 Other: Voiding Method Urinal Urinal # Unmeasured Voids Void 2 Bowel Movement Yes No Active Medications Acetaminophen (Tylenol -) 650 mg PO Q4H PRN PRN Reason: PAIN OR FEVER Amlodipine Besylate (Norvasc -) 5 mg PO DAILY [facility] Last Admin: 05/31/19 10:43 Dose: 5 mg Atorvastatin Calcium (Lipitor -) 20 mg PO HS [facility] Last Admin: 05/30/19 21:21 Dose: 20 mg Bisacodyl (Dulcolax Suppository -) 10 mg [place] DAILY PRN PRN Reason: CONSTIPATION Last Admin: 05/30/19 15:22 Dose: 10 mg Metoprolol Tartrate (Lopressor -) 100 mg PO BID [facility] Last Admin: 05/31/19 10:43 Dose: 100 mg Polyethylene Glycol (Miralax (For Daily Use) -) 17 gm PO DAILY PRN PRN Reason: CONSTIPATION Last Admin: 05/30/19 11:39 Dose: 17 gm CBC, BMP 05/31/19 07:56 05/31/19 07:56 Microbiology 05/25/19 11:40 Blood Culture - Final Blood - Peripheral Venous NO GROWTH AFTER 5 DAYS INCUBATION 05/25/19 11:30 Blood Culture - Final Blood - Peripheral Venous NO GROWTH AFTER 5 DAYS INCUBATION Physical Exam S1 S2 RRR Lungs clear Abd- soft,NT Ext-- no edema awake/ comfortable PLAN stable discussed pt says his will pick will d/c home today Discussed with nursing staff Pt before d/c Problem List - Problems (1) HTN (hypertension) Code(s): I10 - ESSENTIAL (PRIMARY) HYPERTENSION Qualifiers: Hypertension type: essential hypertension Qualified Code(s): I10 - Essential (primary) hypertension (2) ADAM (acute kidney injury) Code(s): N17.9 - ACUTE KIDNEY FAILURE, UNSPECIFIED (3) Aortic aneurysm, abdominal Code(s): I71.4 - ABDOMINAL AORTIC ANEURYSM, WITHOUT RUPTURE Qualifiers: Presence of rupture: without rupture Qualified Code(s): I71.4 - Abdominal aortic aneurysm, without rupture (4) CAD (coronary artery disease) Code(s): I25.10 - ATHSCL HEART DISEASE OF [place] CORONARY ARTERY W/O ANG PCTRS Qualifiers: Coronary Disease-Associated Artery/Lesion type: [place] artery [place] vs. transplanted heart: [place] heart Associated angina: without angina Qualified Code(s): I25.10 - Atherosclerotic heart disease of [place] coronary artery without angina pectoris
--- NOTE | 2019-05-31 14:06 | DS ---
Physical Examination Vital Signs: Vital Signs Temperature 98.5 F 05/31/19 08:53 Pulse Rate 68 05/31/19 08:53 Respiratory Rate 20 05/31/19 09:00 Blood Pressure 149/62 05/31/19 08:53 O2 Sat by Pulse Oximetry (%) 96 05/31/19 09:00 Labs: CBC, BMP 05/31/19 07:56 05/31/19 07:56 Discharge Summary Reason For Visit: ACUTE KIDNEY INJURY SYNCOPE Current Active Problems ADAM (acute kidney injury) (Acute) HTN (hypertension) (Acute) Hyperlipidemia (Acute) S/P drug eluting coronary stent placement (Acute) Traumatic perinephric hematoma of right kidney (Acute) - Instructions - Home Medications Comprehensive Discharge Medication List: Ambulatory Orders Metoprolol Tartrate 100 mg PO BID 08/01/15 Amlodipine Besylate [Norvasc -] 5 mg PO DAILY #30 tablet 05/31/19 Atorvastatin Ca [Lipitor] 20 mg PO HS #30 tablet 05/31/19 Bisacodyl Suppository [Dulcolax Suppository -] 10 mg [place] DAILY PRN supp.rect Polyethylene Glycol 3350 [Miralax 119 gm Btl -] 17 gm PO DAILY PRN bottle 05/31
[2019-05-31 14:25] VITALS: BMI 24.6
--- NOTE | 2019-05-31 14:29 | PN ---
Progress Note (short form) - Note Progress Note: [facility] CTA reviewed with radiology. No endoleak. Graft and its attachments are all in place. Pt will follow up after DC and we will surveillance graft every 6 months. Florencio sales DO
--- NOTE | 2019-05-31 15:48 | PN ---
Progress Note, Physician History of Present Illness: Pt seen and examined at bedside. He is awake and alert. He denies shortness of breath. He denies dysuria. - Current Medication List Current Medications: Active Medications Acetaminophen (Tylenol -) 650 mg PO Q4H PRN PRN Reason: PAIN OR FEVER Amlodipine Besylate (Norvasc -) 5 mg PO DAILY [facility] Last Admin: 05/31/19 10:43 Dose: 5 mg Atorvastatin Calcium (Lipitor -) 20 mg PO HS [facility] Last Admin: 05/30/19 21:21 Dose: 20 mg Bisacodyl (Dulcolax Suppository -) 10 mg [place] DAILY PRN PRN Reason: CONSTIPATION Last Admin: 05/30/19 15:22 Dose: 10 mg Metoprolol Tartrate (Lopressor -) 100 mg PO BID [facility] Last Admin: 05/31/19 10:43 Dose: 100 mg Polyethylene Glycol (Miralax (For Daily Use) -) 17 gm PO DAILY PRN PRN Reason: CONSTIPATION Last Admin: 05/30/19 11:39 Dose: 17 gm - Objective Vital Signs: Vital Signs Temperature 98.5 F 05/31/19 08:53 Pulse Rate 68 05/31/19 08:53 Respiratory Rate 20 05/31/19 09:00 Blood Pressure 149/62 05/31/19 08:53 O2 Sat by Pulse Oximetry (%) 96 05/31/19 09:00 Constitutional: Yes: Calm Eyes: Yes: Conjunctiva Clear HENT: Yes: Atraumatic Neck: Yes: Supple Cardiovascular: Yes: S1, S2 Respiratory: Yes: CTA Bilaterally Gastrointestinal: Yes: Soft Musculoskeletal: Yes: WNL Edema: No Neurological: Yes: Oriented Psychiatric: Yes: Oriented Labs: CBC, BMP 05/31/19 07:56 05/31/19 07:56 INR, PTT INR 1.04 (0.83-1.09) 05/24/19 15:09 Problem List - Problems (1) ADAM (acute kidney injury) Code(s): N17.9 - ACUTE KIDNEY FAILURE, UNSPECIFIED (2) Aortic aneurysm, abdominal Code(s): I71.4 - ABDOMINAL AORTIC ANEURYSM, WITHOUT RUPTURE Qualifiers: Presence of rupture: without rupture Qualified Code(s): I71.4 - Abdominal aortic aneurysm, without rupture Assessment/Plan Current Medications Generic Name Dose Route Start Last Admin Trade Name Freq PRN Reason Stop Dose Admin Acetaminophen 650 mg 05/29/19 17:31 Tylenol - PO Q4H PRN PAIN OR FEVER Amlodipine Besylate 5 mg 05/30/19 10:00 05/31/19 10:43 Norvasc - PO 5 mg DAILY [facility] Administration Atorvastatin Calcium 20 mg 05/29/19 22:00 05/30/19 21:21 Lipitor - PO 20 mg HS [facility] Administration Bisacodyl 10 mg 05/30/19 11:01 05/30/19 15:22 Dulcolax Suppository - [place] 10 mg DAILY PRN Administration CONSTIPATION Metoprolol Tartrate 100 mg 05/29/19 22:00 05/31/19 10:43 Lopressor - PO 100 mg BID [facility] Administration Polyethylene Glycol 17 gm 05/29/19 17:31 05/30/19 11:39 Miralax (For Daily Use) - PO 17 gm DAILY PRN Administration CONSTIPATION Laboratory Tests 05/26/19 05/26/19 05:22 05:22 SUNNY Screen Negative c-ANCA <1:20 Proteinase 3 (PR3) Pending p-ANCA <1:20 Atypical p-ANCA <1:20 Myeloperoxidase Ab <9.0 Impression 1. ADAM 2. AAA s/p repair 3. BPH 4. CAD 5. perinephric hematoma Plan - renal function continues to improve - will need outpt follow up - discussed importance of follow up - renal workup negative so far - arb and thiazide on hold
[2019-05-31] MEDS: ATORVASTATIN CA 20 MG TABLET (FP) PO SCH (21:46)
[2019-06-01] MEDS: amLODIPine BESYLATE 5 MG TABLET (FP) PO SCH (09:34)
[2019-06-01] MEDS: METOPROLOL TARTRATE 50 MG TABLET (FP) PO SCH ×2 (09:34→21:15)
[2019-06-01] MEDS ORDERED: ALBUTEROL SO4 2.5/IPRATROPIUM 0.5 INH SOL 3 ML VIAL.NEB. NEB PRN (10:27)
[2019-06-01] MEDS ORDERED: PIPERACILLIN/TAZOB 4.5 GM 4.5 GM in DEXTROSE 5%-WATER 100 ML IVPB ONE (10:27)
--- NOTE | 2019-06-01 10:40 | PN ---
Progress Note, Physician Chief Complaint: Events noted Not in distress History of Present Illness: Patient was seen and examined. Awake and alert. Chart was reviewed Denies chest pain, SOB or palpitations - Current Medication List Current Medications: Active Medications Acetaminophen (Tylenol -) 650 mg PO Q4H PRN PRN Reason: PAIN OR FEVER Albuterol/Ipratropium (Duoneb -) 1 amp NEB Q6H PRN PRN Reason: SHORTNESS OF BREATH Amlodipine Besylate (Norvasc -) 5 mg PO DAILY [facility] Last Admin: 06/01/19 09:34 Dose: 5 mg Atorvastatin Calcium (Lipitor -) 20 mg PO HS [facility] Last Admin: 05/31/19 21:46 Dose: 20 mg Bisacodyl (Dulcolax Suppository -) 10 mg [place] DAILY PRN PRN Reason: CONSTIPATION Last Admin: 05/30/19 15:22 Dose: 10 mg Piperacillin Sod/Tazobactam (Sod 4.5 gm/ Dextrose) 100 mls @ 200 mls/hr IVPB ONCE ONE; Protocol Stop: 06/01/19 10:56 Metoprolol Tartrate (Lopressor -) 100 mg PO BID [facility] Last Admin: 06/01/19 09:34 Dose: 100 mg Polyethylene Glycol (Miralax (For Daily Use) -) 17 gm PO DAILY PRN PRN Reason: CONSTIPATION Last Admin: 05/30/19 11:39 Dose: 17 gm - Objective Vital Signs: Vital Signs Temperature 98.4 F 06/01/19 08:22 Pulse Rate 77 06/01/19 08:22 Respiratory Rate 18 06/01/19 08:24 Blood Pressure 142/59 L 06/01/19 08:22 O2 Sat by Pulse Oximetry (%) 96 06/01/19 08:24 Eyes: Yes: PERRL HENT: Yes: Atraumatic Neck: Yes: Supple Cardiovascular: Yes: Regular Rate and Rhythm, S1, S2 Respiratory: Yes: CTA Bilaterally Gastrointestinal: Yes: Normal Bowel Sounds, Soft. No: Tenderness Edema: No Labs: CBC, BMP 05/31/19 07:56 05/31/19 07:56 Problem List - Problems (1) ADAM (acute kidney injury) Code(s): N17.9 - ACUTE KIDNEY FAILURE, UNSPECIFIED (2) HTN (hypertension) Code(s): I10 - ESSENTIAL (PRIMARY) HYPERTENSION Qualifiers: Hypertension type: essential hypertension Qualified Code(s): I10 - Essential (primary) hypertension (3) Hyperlipidemia Code(s): E78.5 - HYPERLIPIDEMIA, UNSPECIFIED (4) S/P drug eluting coronary stent placement Code(s): Z95.5 - PRESENCE OF CORONARY ANGIOPLASTY IMPLANT AND GRAFT (5) Traumatic perinephric hematoma of right kidney Code(s): S37.091A - OTHER INJURY OF RIGHT KIDNEY, INITIAL ENCOUNTER Qualifiers: Encounter type: subsequent encounter Qualified Code(s): S37.091D - Other injury of right kidney, subsequent encounter (6) Aortic aneurysm, abdominal Code(s): I71.4 - ABDOMINAL AORTIC ANEURYSM, WITHOUT RUPTURE Qualifiers: Presence of rupture: without rupture Qualified Code(s): I71.4 - Abdominal aortic aneurysm, without rupture (7) CAD (coronary artery disease) Code(s): I25.10 - ATHSCL HEART DISEASE OF [place] CORONARY ARTERY W/O ANG PCTRS Qualifiers: Coronary Disease-Associated Artery/Lesion type: [place] artery [place] vs. transplanted heart: [place] heart Associated angina: without angina Qualified Code(s): I25.10 - Atherosclerotic heart disease of [place] coronary artery without angina pectoris (8) Hematuria Code(s): R31.9 - HEMATURIA, UNSPECIFIED (9) UTI (urinary tract infection) Code(s): N39.0 - URINARY TRACT INFECTION, SITE NOT SPECIFIED Assessment/Plan 1. Syncope due to high vagal tone (referable to pain and hypovolemia with blood loss/hematoma) 2. CAD s/p AR s/p KAVYA to RCA 3. Diastolic dysfunction 4. Acute on CKD due to hypovolemia, blood loss and right perinephric hematoma 5. Right perinephric hematoma 6. 6.5 cm AAA s/p EVAR 7. PAD 8. Hyperlipidemia PLAN: 1. Losartan and HCTZ held pending renal recovery. Monitor renal function and electrolytes 2. Hold ASA and Pletal pending hemostasis. Follow CBC and transfuse for Hgb<8.0 3. Continue Lopressor 100 mg BID, Norvasc 5 mg QD and Lipitor 20 mg QHS as tolerated Further plans are to follow Jason Almaraz MD
--- NOTE | 2019-06-01 10:50 | PN ---
Progress Note (short form) - Note Progress Note: events noted had desaturated below 90 on RA yesterday DC held Pt at rest today on RA 92%, but on ambulation-->77% no SOB no cough Vital Signs - 24 hr 05/31/19 05/31/19 05/31/19 14:00 18:30 21:00 Temperature 98.3 F 98.1 F Pulse Rate 69 83 Respiratory 20 20 18 Rate Blood Pressure 119/63 115/63 O2 Sat by Pulse 96 Oximetry (%) 05/31/19 06/01/19 06/01/19 21:48 06:00 08:22 Temperature 98.3 F 97.7 F 98.4 F Pulse Rate 84 75 77 Respiratory 18 18 18 Rate Blood Pressure 131/84 154/77 142/59 L O2 Sat by Pulse Oximetry (%) 06/01/19 08:24 Temperature Pulse Rate Respiratory 18 Rate Blood Pressure O2 Sat by Pulse 96 Oximetry (%) Current Medications Generic Name Dose Route Start Last Admin Trade Name Freq PRN Reason Stop Dose Admin Acetaminophen 650 mg 05/29/19 17:31 Tylenol - PO Q4H PRN PAIN OR FEVER Albuterol/Ipratropium 1 amp 06/01/19 11:00 Duoneb - NEB Q6H [facility] Amlodipine Besylate 5 mg 05/30/19 10:00 06/01/19 09:34 Norvasc - PO 5 mg DAILY [facility] Administration Atorvastatin Calcium 20 mg 05/29/19 22:00 05/31/19 21:46 Lipitor - PO 20 mg HS [facility] Administration Bisacodyl 10 mg 05/30/19 11:01 05/30/19 15:22 Dulcolax Suppository - [place] 10 mg DAILY PRN Administration CONSTIPATION Piperacillin Sod/Tazobactam 100 mls @ 200 mls/hr 06/01/19 10:27 Sod 4.5 gm/ Dextrose IVPB 06/01/19 10:56 ONCE ONE Protocol Metoprolol Tartrate 100 mg 05/29/19 22:00 06/01/19 09:34 Lopressor - PO 100 mg BID [facility] Administration Polyethylene Glycol 17 gm 05/29/19 17:31 05/30/19 11:39 Miralax (For Daily Use) - PO 17 gm DAILY PRN Administration CONSTIPATION S1 S2 RRR Lungs clear Abd- soft,NT Ext-- no edema PLAN no endoleak HCT stable renal function better OOB CXR-- Right lower lobe infiltrate , atelectasis Nebs incentive spirometry ID eval-- stat dose Zosyn ordered Pulm follow up Urology eval - perinephric hematoma-- noted Problem List - Problems (1) HTN (hypertension) Code(s): I10 - ESSENTIAL (PRIMARY) HYPERTENSION Qualifiers: Hypertension type: essential hypertension Qualified Code(s): I10 - Essential (primary) hypertension (2) ADAM (acute kidney injury) Code(s): N17.9 - ACUTE KIDNEY FAILURE, UNSPECIFIED (3) Aortic aneurysm, abdominal Code(s): I71.4 - ABDOMINAL AORTIC ANEURYSM, WITHOUT RUPTURE Qualifiers: Presence of rupture: without rupture Qualified Code(s): I71.4 - Abdominal aortic aneurysm, without rupture (4) CAD (coronary artery disease) Code(s): I25.10 - ATHSCL HEART DISEASE OF [place] CORONARY ARTERY W/O ANG PCTRS Qualifiers: Coronary Disease-Associated Artery/Lesion type: [place] artery [place] vs. transplanted heart: [place] heart Associated angina: without angina Qualified Code(s): I25.10 - Atherosclerotic heart disease of [place] coronary artery without angina pectoris
[2019-06-01] MEDS ORDERED: DEXTROSE 5%-WATER 100 ML IVPB ONE (10:58)
[2019-06-01] MEDS ORDERED: PIPERACILLIN/TAZOBACTAM 4.5 GM VIAL IVPB ONE (10:58)
--- NOTE | 2019-06-01 11:58 | PN ---
Progress Note, Physician History of Present Illness: Pt seen and examined at bedside. He is now on abx for PNA. He denies dysuria. - Current Medication List Current Medications: Active Medications Acetaminophen (Tylenol -) 650 mg PO Q4H PRN PRN Reason: PAIN OR FEVER Albuterol/Ipratropium (Duoneb -) 1 amp NEB RQID [facility] Amlodipine Besylate (Norvasc -) 5 mg PO DAILY [facility] Last Admin: 06/01/19 09:34 Dose: 5 mg Atorvastatin Calcium (Lipitor -) 20 mg PO HS [facility] Last Admin: 05/31/19 21:46 Dose: 20 mg Bisacodyl (Dulcolax Suppository -) 10 mg [place] DAILY PRN PRN Reason: CONSTIPATION Last Admin: 05/30/19 15:22 Dose: 10 mg Metoprolol Tartrate (Lopressor -) 100 mg PO BID [facility] Last Admin: 06/01/19 09:34 Dose: 100 mg Polyethylene Glycol (Miralax (For Daily Use) -) 17 gm PO DAILY PRN PRN Reason: CONSTIPATION Last Admin: 05/30/19 11:39 Dose: 17 gm - Objective Vital Signs: Vital Signs Temperature 98.4 F 06/01/19 08:22 Pulse Rate 77 06/01/19 08:22 Respiratory Rate 18 06/01/19 08:24 Blood Pressure 142/59 L 06/01/19 08:22 O2 Sat by Pulse Oximetry (%) 96 06/01/19 08:24 Constitutional: Yes: Calm Eyes: Yes: Conjunctiva Clear HENT: Yes: Atraumatic Neck: Yes: Supple Cardiovascular: Yes: S1, S2 Respiratory: Yes: CTA Bilaterally Gastrointestinal: Yes: Soft Genitourinary: Yes: WNL Musculoskeletal: Yes: WNL Edema: No Neurological: Yes: Oriented Psychiatric: Yes: Oriented Labs: CBC, BMP 05/31/19 07:56 05/31/19 07:56 INR, PTT INR 1.04 (0.83-1.09) 05/24/19 15:09 Problem List - Problems (1) ADAM (acute kidney injury) Code(s): N17.9 - ACUTE KIDNEY FAILURE, UNSPECIFIED (2) Aortic aneurysm, abdominal Code(s): I71.4 - ABDOMINAL AORTIC ANEURYSM, WITHOUT RUPTURE Qualifiers: Presence of rupture: without rupture Qualified Code(s): I71.4 - Abdominal aortic aneurysm, without rupture Assessment/Plan Current Medications Generic Name Dose Route Start Last Admin Trade Name Freq PRN Reason Stop Dose Admin Acetaminophen 650 mg 05/29/19 17:31 Tylenol - PO Q4H PRN PAIN OR FEVER Albuterol/Ipratropium 1 amp 06/01/19 12:00 Duoneb - NEB RQID [facility] Amlodipine Besylate 5 mg 05/30/19 10:00 06/01/19 09:34 Norvasc - PO 5 mg DAILY [facility] Administration Atorvastatin Calcium 20 mg 05/29/19 22:00 05/31/19 21:46 Lipitor - PO 20 mg HS [facility] Administration Bisacodyl 10 mg 05/30/19 11:01 05/30/19 15:22 Dulcolax Suppository - [place] 10 mg DAILY PRN Administration CONSTIPATION Metoprolol Tartrate 100 mg 05/29/19 22:00 06/01/19 09:34 Lopressor - PO 100 mg BID [facility] Administration Polyethylene Glycol 17 gm 05/29/19 17:31 05/30/19 11:39 Miralax (For Daily Use) - PO 17 gm DAILY PRN Administration CONSTIPATION Impression 1. ADAM 2. AAA s/p repair 3. BPH 4. CAD 5. 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
[2019-06-01] MEDS: ALBUTEROL SO4 2.5/IPRATROPIUM 0.5 INH SOL 3 ML VIAL.NEB. NEB SCH ×3 (12:51→20:48)
--- NOTE | 2019-06-01 13:46 | PN ---
Progress Note (short form) - Note Progress Note: PULMONARY Called back to see pt due to abnormal CXR. Pt denies shortness of breath, cough , fevers or chills. No fevers recorded. Vital Signs Period Temp Pulse Resp BP Sys/Joshua Pulse Ox Last 24 Hr 97.7 F-98.4 F 69-84 18-20 115-154/59-84 96-96 Gen: NAD at rest Heart: RRR Lung: decreased breath sounds right base Abd: soft, nontender Ext: no edema CBC, BMP 05/31/19 07:56 05/31/19 07:56 Active Medications Acetaminophen (Tylenol -) 650 mg PO Q4H PRN PRN Reason: PAIN OR FEVER Albuterol/Ipratropium (Duoneb -) 1 amp NEB RQID [facility] Last Admin: 06/01/19 12:51 Dose: 1 amp Amlodipine Besylate (Norvasc -) 5 mg PO DAILY [facility] Last Admin: 06/01/19 09:34 Dose: 5 mg Atorvastatin Calcium (Lipitor -) 20 mg PO HS [facility] Last Admin: 05/31/19 21:46 Dose: 20 mg Bisacodyl (Dulcolax Suppository -) 10 mg [place] DAILY PRN PRN Reason: CONSTIPATION Last Admin: 05/30/19 15:22 Dose: 10 mg Metoprolol Tartrate (Lopressor -) 100 mg PO BID [facility] Last Admin: 06/01/19 09:34 Dose: 100 mg Polyethylene Glycol (Miralax (For Daily Use) -) 17 gm PO DAILY PRN PRN Reason: CONSTIPATION Last Admin: 05/30/19 11:39 Dose: 17 gm A/P Right Pleural Effusion with Atelectasis LV Diastolic Dysfunction Acute on Chronic Renal FAilure Right Perinephric Hematoma CAD PAD AAA s/p EVAR Hyperlipidemia - pt without fevers or leukocytosis, asymptomatic so less likely pneumonia - pleural effusion/atelectasis present on CT A/P on 05/26, likely due to fluid shifts/third spacing from IVF when he was in acute renal failure - pt asymptomatic, would obtain repeat CXR in 3-4 weeks to ensure resolution - if pt becomes short of breath, can give trial of lasix - can be discharged from pulmonary standpoint
[2019-06-01] MEDS: ATORVASTATIN CA 20 MG TABLET (FP) PO SCH (21:15)
[2019-06-02] MEDS: ALBUTEROL SO4 2.5/IPRATROPIUM 0.5 INH SOL 3 ML VIAL.NEB. NEB SCH ×2 (08:00→12:15)
[2019-06-02 08:51] LABS: BASO % 0.4 % (0-2.0); EOS % 3.5 % (0-4.5); HEMATOCRIT 26.4 % (35.4-49); HEMOGLOBIN 8.7 GM/dL (11.7-16.9); LYMPH % 11.2 % (8-40); MCH 29.3 pg (25.7-33.7); MEAN CELL VOLUME 88.9 fl (80-96); MEAN PLT VOLUME 9.3 fl (7.5-11.1); MONO % 7.9 % (3.8-10.2); PLATELET COUNT 154 K/MM3 (134-434); RBC 2.97 M/mm3 (4.00-5.60); RDW 16.8 % (11.9-15.9); WHITE BLOOD COUNT 7.7 K/mm3 (4.0-10.0)
[2019-06-02 09:23] LABS: BLOOD UREA NITROGEN 42.4 mg/dL (7-18); CALCIUM 8.4 mg/dL (8.5-10.1); CREATININE 1.9 mg/dL (0.55-1.3); POTASSIUM 4.3 mmol/L (3.5-5.1); TOT PROT 5.9 g/dl (6.4-8.2)
[2019-06-02 10:02] VITALS: BP 130/72; PULSE 90; TEMP 98.2
[2019-06-02] MEDS: METOPROLOL TARTRATE 50 MG TABLET (FP) PO SCH (10:02)
[2019-06-02] MEDS: amLODIPine BESYLATE 5 MG TABLET (FP) PO SCH (10:02)
--- NOTE | 2019-06-02 10:05 | PN ---
Progress Note, Physician History of Present Illness: RLQ abd and flank pain resolved, no further near or true syncope, s/p 2 u pRBC, Hgb and hemodynamically stable. CTA shows no endoleak, right effusion, stable right perinephric hematoma. - Current Medication List Current Medications: Active Medications Acetaminophen (Tylenol -) 650 mg PO Q4H PRN PRN Reason: PAIN OR FEVER Albuterol/Ipratropium (Duoneb -) 1 amp NEB RQID [facility] Last Admin: 06/02/19 08:00 Dose: 1 amp Amlodipine Besylate (Norvasc -) 5 mg PO DAILY [facility] Last Admin: 06/02/19 10:02 Dose: 5 mg Atorvastatin Calcium (Lipitor -) 20 mg PO HS [facility] Last Admin: 06/01/19 21:15 Dose: 20 mg Bisacodyl (Dulcolax Suppository -) 10 mg [place] DAILY PRN PRN Reason: CONSTIPATION Last Admin: 05/30/19 15:22 Dose: 10 mg Metoprolol Tartrate (Lopressor -) 100 mg PO BID [facility] Last Admin: 06/02/19 10:02 Dose: 100 mg Polyethylene Glycol (Miralax (For Daily Use) -) 17 gm PO DAILY PRN PRN Reason: CONSTIPATION Last Admin: 05/30/19 11:39 Dose: 17 gm - Objective Vital Signs: Vital Signs Temperature 98.2 F 06/02/19 10:00 Pulse Rate 90 06/02/19 10:00 Respiratory Rate 18 06/02/19 10:00 Blood Pressure 130/72 06/02/19 10:00 O2 Sat by Pulse Oximetry (%) 95 06/01/19 21:00 Constitutional: Yes: No Distress, Calm, Thin Neck: Yes: Supple Cardiovascular: Yes: Regular Rate and Rhythm Respiratory: Yes: Regular, CTA Bilaterally Gastrointestinal: Yes: Normal Bowel Sounds, Soft Edema: No Labs: CBC, BMP 06/02/19 07:38 06/02/19 07:38 INR, PTT INR 1.04 (0.83-1.09) 05/24/19 15:09 - ....Imaging Chest X-ray: Report Reviewed (New right ATX, pleural effusion) Problem List - Problems (1) ADAM (acute kidney injury) Code(s): N17.9 - ACUTE KIDNEY FAILURE, UNSPECIFIED (2) HTN (hypertension) Code(s): I10 - ESSENTIAL (PRIMARY) HYPERTENSION Qualifiers: Hypertension type: essential hypertension Qualified Code(s): I10 - Essential (primary) hypertension (3) Aortic aneurysm, abdominal Code(s): I71.4 - ABDOMINAL AORTIC ANEURYSM, WITHOUT RUPTURE Qualifiers: Presence of rupture: without rupture Qualified Code(s): I71.4 - Abdominal aortic aneurysm, without rupture (4) CAD (coronary artery disease) Code(s): I25.10 - ATHSCL HEART DISEASE OF [place] CORONARY ARTERY W/O ANG PCTRS Qualifiers: Coronary Disease-Associated Artery/Lesion type: [place] artery [place] vs. transplanted heart: [place] heart Associated angina: without angina Qualified Code(s): I25.10 - Atherosclerotic heart disease of [place] coronary artery without angina pectoris (5) Hyperlipidemia Code(s): E78.5 - HYPERLIPIDEMIA, UNSPECIFIED (6) Traumatic perinephric hematoma of right kidney Code(s): S37.091A - OTHER INJURY OF RIGHT KIDNEY, INITIAL ENCOUNTER Qualifiers: Encounter type: subsequent encounter Qualified Code(s): S37.091D - Other injury of right kidney, subsequent encounter (7) S/P drug eluting coronary stent placement Code(s): Z95.5 - PRESENCE OF CORONARY ANGIOPLASTY IMPLANT AND GRAFT Assessment/Plan 11/20/2018 Echo: Normal LV size with mod LVH, normal LV systolic fxn, grade I diastolic dysfunction, normal atrial sizes, mild TR RVSP 19 mmHg, mild RI, unchanged from 02/20/2017 05/26/2019 Abd/pelvic CTA: EVAR w/o endoleaks, mod right effusion, stable right perinephric hematoma 03/04/2017 Lexiscan Myoview: Moderate size inferior, inferobasal infarct LVEF 77 % 1. Syncope due to high vagal tone (referable to pain and hypovolemia with blood loss/hematoma) 2. CAD s/p [place] s/p KAVYA to RCA 3. Diastolic dysfunction 4. Acute on CKD due to hypovolemia, blood loss and right perinephric hematoma 5. Right perinephric hematoma 6. 6.5 cm AAA s/p EVAR 7. PAD 8. Hyperlipidemia PLAN: 1. Losartan and HCTZ held pending renal recovery, resume losartan once renal fxn recovers to baseline. Monitor renal function and electrolytes 2. Hold ASA and Pletal pending hemostasis. Follow CBC and transfuse for Hgb<8.0 3. Continue Lopressor 100 mg BID, Norvasc 5 mg QD and Lipitor 20 mg QHS as tolerated
--- NOTE | 2019-06-02 11:35 | DS ---
Physical Examination Vital Signs: Vital Signs Temperature 98.2 F 06/02/19 10:00 Pulse Rate 90 06/02/19 10:00 Respiratory Rate 18 06/02/19 10:00 Blood Pressure 130/72 06/02/19 10:00 O2 Sat by Pulse Oximetry (%) 95 06/02/19 09:00 Constitutional: Yes: No Distress Cardiovascular: Yes: Regular Rate and Rhythm Respiratory: Yes: Diminished Gastrointestinal: Yes: Normal Bowel Sounds, Soft. No: Tenderness Edema: No Labs: CBC, BMP 06/02/19 07:38 06/02/19 07:38 Discharge Summary Reason For Visit: ACUTE KIDNEY INJURY SYNCOPE Current Active Problems ADAM (acute kidney injury) (Acute) HTN (hypertension) (Acute) Hyperlipidemia (Acute) S/P drug eluting coronary stent placement (Acute) Traumatic perinephric hematoma of right kidney (Acute) Hospital Course: ADMISSION HISTORY__ Addendum entered and electronically signed by Abby Roca FNP 05/24/19 23:20 : He has mild leukocytosis with an abnormal differential. CT scan of abdomen results abnormal as below. Patient received one dosage of IV zosyn (dosed renally). Consulted Infectious Diseases has been consulted for further recommendations. Original Note: CHIEF COMPLAINT: passed out and reported had right sided lower abdominal pain PCP:Dr. Willis Duck Farmer: Dr. Kimble HISTORY OF PRESENT ILLNESS: This is an 88 year old male with history of [place], coronary artery disease with 2 stents placed 11 years ago, abdominal aortic aneurym repaired 3 years ago and BPH who presents with a syncopal episode . He reports he was at home,shaved and was walking around in his home and started to feel right sided lower abdominal pain prior to this event and then was found passed out on the floor by his . He denied chest pain, shortness of breath, dizziness or palpitations. He reports not drinking an adequate amount of water. He denied fever, chills, nausea, vomitting or diarrhea. Upon evaluation in the ER he was found to have a creatinine of 2.4(baseline 1.1- 1.9),WBC 11.5, magnesium 2.6, hgb 9.[address] scan of head showed no acute intracranial findings. CT scan of abdomen and pelvis demonstrated a large pernephritic hematoma. Renal US showed no evidence of hydronephrosis and bilateral renal cysts. He is being admitted for further cardiac, neurological and renal workup. HOSPITAL COURSE Pt admitted initially to telemetry Was evaluated by Cardiology, Vascular, Renal and Urology , pulmonary Was on iv fluids for acute renal failure-- ASA held due to bleed CTA aorta-- showed no endoleak He has large rt perinephric hematoma HCT stable Renal function better had decreased oxygen saturation a few days ago-- CXR showed fluid/atelectasis No pneumonia per Pulmonary -- due to fluids pt was started on incentive spirometry and nebs - improved today walked with PT - RA O2 sat 97% Pt is stable for home per Urology dr Latham-- Assessment/Plan: right perinephric hematoma likely secondary to trauma vs spontaneous bleed Prior stenting procedure unliely cause Would follow w serial imaging unable to visualize recent angio however hematoma appears to be contained follow hct cr 2.4 As per Vascular Surgery CTA reviewed with radiology. No endoleak. Graft and its attachments are all in place. Pt will follow up after DC and we will surveillance graft every 6 months. PLAN Follow up with DR Willis , DR Medina , DR Middleton repeat CXR - 1 month to ensure resolution of fluid/atelectasis repeat CT abd/pelvis - 2 weeks to assess Right perinephric hematoma Hold off ASA/Plavix/Pletal Condition: Improved - Instructions Diet, Activity, Other Instructions: Follow up with DR Willis , DR Medina , DR Middleton repeat CXR - 1 month to ensure resolution of fluid/atelectasis repeat CT abd/pelvis - 2 weeks to assess Right perinephric hematoma Hold off ASA/Plavix/Pletal Referrals: Nadia Middleton MD [Staff Physician] - Christofer Medina MD., MD [Staff Physician] - Stephen Willis MD [Primary Care Provider] - Disposition: HOME - Home Medications Comprehensive Discharge Medication List: Ambulatory Orders Metoprolol Tartrate 100 mg PO BID 08/01/15 Amlodipine Besylate [Norvasc -] 5 mg PO DAILY #30 tablet 05/31/19 Atorvastatin Ca [Lipitor] 20 mg PO HS #30 tablet 05/31/19 Bisacodyl Suppository [Dulcolax Suppository -] 10 mg NV DAILY PRN supp.rect Polyethylene Glycol 3350 [Miralax 119 gm Btl -] 17 gm PO DAILY PRN bottle 05/31
--- NOTE | 2019-06-02 12:26 | PN ---
Progress Note, Physician History of Present Illness: Pt seen and examined at bedside. He is awake and alert. He is going home today. He denies dysuria or hematuria. - Current Medication List Current Medications: Active Medications Acetaminophen (Tylenol -) 650 mg PO Q4H PRN PRN Reason: PAIN OR FEVER Albuterol/Ipratropium (Duoneb -) 1 amp NEB RQID [facility] Last Admin: 06/02/19 12:15 Dose: 1 amp Amlodipine Besylate (Norvasc -) 5 mg PO DAILY [facility] Last Admin: 06/02/19 10:02 Dose: 5 mg Atorvastatin Calcium (Lipitor -) 20 mg PO HS [facility] Last Admin: 06/01/19 21:15 Dose: 20 mg Bisacodyl (Dulcolax Suppository -) 10 mg [place] DAILY PRN PRN Reason: CONSTIPATION Last Admin: 05/30/19 15:22 Dose: 10 mg Metoprolol Tartrate (Lopressor -) 100 mg PO BID [facility] Last Admin: 06/02/19 10:02 Dose: 100 mg Polyethylene Glycol (Miralax (For Daily Use) -) 17 gm PO DAILY PRN PRN Reason: CONSTIPATION Last Admin: 05/30/19 11:39 Dose: 17 gm - Objective Vital Signs: Vital Signs Temperature 98.2 F 06/02/19 10:00 Pulse Rate 90 06/02/19 10:00 Respiratory Rate 18 06/02/19 10:00 Blood Pressure 130/72 06/02/19 10:00 O2 Sat by Pulse Oximetry (%) 95 06/02/19 09:00 Constitutional: Yes: Calm Eyes: Yes: Conjunctiva Clear HENT: Yes: Atraumatic Neck: Yes: Supple Cardiovascular: Yes: S1, S2 Respiratory: Yes: CTA Bilaterally Gastrointestinal: Yes: Soft Genitourinary: Yes: WNL Musculoskeletal: Yes: WNL Edema: No Neurological: Yes: Oriented Psychiatric: Yes: Oriented Labs: CBC, BMP 06/02/19 07:38 06/02/19 07:38 INR, PTT INR 1.04 (0.83-1.09) 05/24/19 15:09 Problem List - Problems (1) ADAM (acute kidney injury) Code(s): N17.9 - ACUTE KIDNEY FAILURE, UNSPECIFIED (2) Aortic aneurysm, abdominal Code(s): I71.4 - ABDOMINAL AORTIC ANEURYSM, WITHOUT RUPTURE Qualifiers: Presence of rupture: without rupture Qualified Code(s): I71.4 - Abdominal aortic aneurysm, without rupture Assessment/Plan Current Medications Generic Name Dose Route Start Last Admin Trade Name Nitza PRN Reason Stop Dose Admin Acetaminophen 650 mg 05/29/19 17:31 Tylenol - PO Q4H PRN PAIN OR FEVER Albuterol/Ipratropium 1 amp 06/01/19 12:00 06/02/19 12:15 Duoneb - NEB 1 amp RQID RENARD Administration Amlodipine Besylate 5 mg 05/30/19 10:00 06/02/19 10:02 Norvasc - PO 5 mg DAILY RENARD Administration Atorvastatin Calcium 20 mg 05/29/19 22:00 06/01/19 21:15 Lipitor - PO 20 mg HS RENARD Administration Bisacodyl 10 mg 05/30/19 11:01 05/30/19 15:22 Dulcolax Suppository - VT 10 mg DAILY PRN Administration CONSTIPATION Metoprolol Tartrate 100 mg 05/29/19 22:00 06/02/19 10:02 Lopressor - PO 100 mg BID RENARD Administration Polyethylene Glycol 17 gm 05/29/19 17:31 05/30/19 11:39 Miralax (For Daily Use) - PO 17 gm DAILY PRN Administration CONSTIPATION Laboratory Tests 05/26/19 05/26/19 05:22 05:22 SUNNY Screen Negative c-ANCA <1:20 Proteinase 3 (PR3) <3.5 p-ANCA <1:20 Atypical p-ANCA <1:20 Myeloperoxidase Ab <9.0 Impression 1. ADAM 2. AAA s/p repair 3. BPH 4. CAD 5. perinephric hematoma Plan - creatinine is higher today, pt says he will follow in office and he wants to go home - will need outpt follow up - avoid nsaids - renal workup negative so far
== END 2019-06-02 14:04 | disposition home or self-care (01) | DRG 699 ==
LOC: JER 13:59 → JERBED 16:44 → J5S 20:30 → JICU 05-25 01:57 → J5S 05-29 17:07
PROVIDERS: ADMIT Internal Medicine; ATTEND Internal Medicine
PROC: 30233N1 Transfusion of Nonautologous Red Blood Cells into Peripheral Vein, Percutaneous Approach (ICD-10-PCS; principal; 2019-05-25)
DX: S37.011A Minor contusion of right kidney, initial encounter (principal); N17.9 Acute kidney failure, unspecified; J98.11 Atelectasis; J90 Pleural effusion, not elsewhere classified; R71.0 Precipitous drop in hematocrit; I25.10 Atherosclerotic heart disease of native coronary artery without angina pectoris; N40.0 Benign prostatic hyperplasia without lower urinary tract symptoms; I25.2 Old myocardial infarction; D72.829 Elevated white blood cell count, unspecified; E78.5 Hyperlipidemia, unspecified; I73.9 Peripheral vascular disease, unspecified; M48.062 Spinal stenosis, lumbar region with neurogenic claudication; R31.9 Hematuria, unspecified; E86.1 Hypovolemia; N18.9 Chronic kidney disease, unspecified; I12.9 Hypertensive chronic kidney disease with stage 1 through stage 4 chronic kidney disease, or unspecified chronic kidney disease; K59.00 Constipation, unspecified; W19.XXXA Unspecified fall, initial encounter; Y93.89 Activity, other specified; Y92.098 Other place in other non-institutional residence as the place of occurrence of the external cause; Y99.8 Other external cause status
CPT/HCPCS: 36415; 36430; 70450-TC; 71045-TC-FY; 74174-TC; 74176-TC; 76775-TC; 80048; 80053; 81003; 82436; 82565; 82607; 83520; 83735; 83935; 84133; 84300; 84443; 84484; 85025; 85027; 85379; 85610; 86038; 86256; 86850; 86900; 86901; 86922; 87040; 87086; 93005; 93010; 93306-TC; 93880-TC; 93970-TC; 94010; 94640; 97116-GP; 97161-GP; 99284-25; J7030; P9038; P9058